=== PATIENT | female | born 1960 | race Caucasian/White ===

== ENCOUNTER → 2020-04-15 09:24 | Outpatient (BNVA) | payer MEDICARE, MEDICAID, SELFPAY | PROVIDERS: PCP Family Medicine; Referring Provider Family Medicine; Visit Provider Nurse Practitioner Family | DX: G47.33 Obstructive sleep apnea (adult) (pediatric) (principal); I10 Essential (primary) hypertension; F32.9 Major depressive disorder, single episode, unspecified | CPT/HCPCS: 99214 ==

== ENCOUNTER 2020-04-16 12:51 | Outpatient (REF) | payer MEDICARE, MEDICAID, SELFPAY ==
[2020-04-16 14:39] LABS: Alanine Aminotransferase 16 U/L (0-31); Anion Gap 14 (12-20); Blood Urea Nitrogen 10 mg/dL (9-16); Carbon Dioxide 29 mmol/L (22-29); Chloride 104 mmol/L (96-108); Estimated Glomerular Filt Rate > 60; Potassium 4.7 mmol/l (3.3-5.1); Sodium 142 mmol/L (135-145)
== END 2020-04-16 12:52 | disposition home or self-care (01) ==
LOC: HO.HMGCLDS 12:51
PROVIDERS: PCP Family Medicine; Visit Provider Family Medicine
DX: I10 Essential (primary) hypertension (principal); E78.00 Pure hypercholesterolemia, unspecified
CPT/HCPCS: 80051; 82550; 82565; 84460; 84520

== ENCOUNTER → 2020-10-02 08:36 | Outpatient (REF) | payer MEDICARE, MEDICAID, SELFPAY ==
--- NOTE | 2020-10-02 08:39 | CA_ITS ---
Transthoracic Echocardiogram Amended Patient (Last, First, Middle): Eufemia Castellano, Gender: Female Date of : 1960 Age: 59 Procedure Date: 10/02/2020 Procedure Type: Transthoracic Echocardiogram Location: OP Height: 165.1 cm Weight: 113.4 kg BSA: 2.17 m2 Heart Rate: bpm BP: 127 / 74 mmHg Pourer Off: YR Referring MD: Heidi Mcnally DIRECTOR CLIENT SERVICES Symptoms: I10 - Essential (primary) hypertension Study Quality: Fair ECG Rhythm: Sinus Conclusions: - The left ventricular systolic function is normal. The visually estimated ejection fraction is between 60-65%. - There is mild calcification of the aortic valve. - There is mild mitral annular calcification. - The pulmonary artery systolic pressure is normal. Findings Left Ventricle Normal left ventricular cavity size. There is normal left ventricular wall thickness. The left ventricular systolic function is normal. The visually estimated ejection fraction is between 60-65%. The calculated ejection fraction is 61% by biplane method. There is no evidence of regional wall motion abnormalities. Diastolic function is normal for age. Right Ventricle Normal right ventricular cavity size and systolic function. Atria Both atria are normal in size. Aortic Valve There is a normal trileaflet aortic valve. There is mild calcification of the aortic valve. There is no aortic valve stenosis. There is trace (trivial) aortic valve regurgitation. Mitral Valve There is mild mitral annular calcification. There is trace mitral valve regurgitation. There is no mitral valve stenosis. Pulmonic Valve The pulmonic valve was not well visualized. Tricuspid Valve Normal tricuspid valve structure. There is trace tricuspid valve regurgitation. The pulmonary artery systolic pressure is normal. Great Vessels The asc aorta and aortic arch are normal in size. Venous The inferior vena cava is normal in size and collapses greater than 50% with inspiration. Pericardium/Pleural There is no evidence of pericardial effusion. Prior Study Comparison No significant change compared to prior study dated: 05/16/2018. Measurements 2D Linear Measurements IVSd: 0.93 0.6-0.9/0.6-1.0 cm LVIDd: 4.89 3.9-5.3/4.2-5.9 cm LVIDd Index: 2.25 2.4-3.2/2.2-3.1 cm/m2 LVIDs: 3.44 2.0-3.6 cm LVPWd: 0.98 0.7-1.1 cm Ao Root: 3.20 2.1-3.5 cm LA Diam: 4.10 2.7-3.8/3.0-4.0 cm LAIDs Index: 1.89 1.5-2.3 cm/m2 LV Mass: 205.26 67-162/88-224 g LV Mass Index: 94.59 43-95/49-115 g/m2 LVOT Diam: 2.00 3.0+(-)1.3 cm 2D Volumes LA Vol: 33.80 2D Systolic Function EF 4C: 62.90 >55% EF 2C: 60.30 >55% EF BiP: 61.30 >55% Mitral Valve MV Pk E: 1.00 MV PK A: 0.85 MV Decel Time: 296.00 E/A: 1.20 E'Lateral: 12.00 E'Medial: 8.12 E/E' Med: 12.30 E/E' Lat: 8.30 PHT: 87.00 MVA PHT: 2.53 Decel [place]: 3.37 Aortic Valve AoV Pk Beau: 1.95 AoV Mn Beau: 1.25 AoV VTI: 0.43 AoV Pk Grad: 15.00 Aov Mn Grad: 7.00 PAUL Cont.VTI: 2.13 LVOT LVOT Pk Beau: 1.31 LVOT Mn Beau: 0.81 LVOT VTI: 0.29 LVOT Pk Grad: 7.00 LVOT Mn Grad: 3.00 LVOT Diam: 2.00 LVOT Area: 3.14 Diastolic Function MV Pk E: 1.00 MV Pk A: 0.85 E/A: 1.20 E'Medial: 8.12 E/E' Med: 12.30 E' Laterial: 12.00 E/E' Lat: 8.30 Tricuspid Valve TR Pk Beau: 2.20 TR Pk Grad: 19.00 RA Press: 3.00 RVSP: 22.00 Great Vessels Aorta Ao Root-2D: 3.20 2.0-3.7 cm Ao Asc: 3.50 2.1-3.4 cm Ao Arch: 3.20 Updated in Other Vendor System with Status of Final James Murillo MD electronically signed on 10/03/2020 11:23:50 AM with status of Final
== END ==
LOC: HO.CARD 08:36
PROVIDERS: PCP Family Medicine; Visit Provider Nurse Practitioner Family
DX: I10 Essential (primary) hypertension (principal); G47.33 Obstructive sleep apnea (adult) (pediatric)
CPT/HCPCS: 93306

== ENCOUNTER 2020-11-07 10:39 | Outpatient (REF) | payer MEDICARE, MEDICAID, SELFPAY ==
--- NOTE | ~2020-11-07 | MM_ITS ---
EXAMINATION: MM SCREENING DIGITAL BREAST TOMOSYNTHESIS, BILATERAL CLINICAL INFORMATION: Screening. Asymptomatic. The lifetime risk of breast cancer based on the Tyrer-Cuzick Model is 9%. COMPARISON: Mammography: 09/06/2019, 05/23/2018, 08/03/2016 TECHNIQUE: Digital breast tomosynthesis is performed in both the craniocaudal and mediolateral oblique views along with computer-aided detection (CAD). Synthesized 2D images are generated from the tomosynthesis. Additional bilateral CC and additional bilateral MLO views are provided. FINDINGS: The breasts are almost entirely fatty (ACR BI-RADS breast composition Category a). There are no significant masses, abnormal calcifications, or other abnormalities. Background stromal markings are stable. There are bilateral low axillary tail nodes again seen on the MLO views. No significant changes from prior exams. MM/MM tomosynthesis screening BI IMPRESSION: No mammographic evidence of malignancy. ASSESSMENT: BI-RADS 2: Benign RECOMMENDATION: Routine annual mammography screening. This patient's information was entered into a reminder system with a target due date for their next mammogram.
== END 2020-11-07 10:40 | disposition home or self-care (01) ==
LOC: HO.MAMMO 10:39
PROVIDERS: PCP Family Medicine; Visit Provider Family Medicine
DX: Z12.31 Encounter for screening mammogram for malignant neoplasm of breast (principal)
CPT/HCPCS: 77063; 77067

== ENCOUNTER 2020-11-20 12:02 | Outpatient (REF) | payer MEDICARE, MEDICAID, SELFPAY ==
[2020-11-20 13:17] LABS: MANUAL DIFF FLAG NO
[2020-11-20 13:21] LABS: Basophils Absolute Auto 0.1 X10*3/uL (0.0-0.2); Basophils Percent Auto 0.6 % (0-2); Eosinophils Absolute Auto 0.4 X10*3/uL (0.0-0.4); Eosinophils Percent Auto 3.4 % (0-4); Hematocrit 38.2 % (37-47); Hemoglobin 12.1 g/dl (12.0-16.0); Imm Gran Abs Auto 0.03 X10*3/uL (0.00-0.03); Imm Gran Pct Auto 0.3 % (0.0-0.4); Lymphocytes Absolute Auto 2.3 X10*3/uL (1.2-4.9); Lymphocytes Percent Auto 19.1 % (20-40); Mean Corpuscular HGB Conc 31.7 g/dl (31.0-35.0); Mean Corpuscular Hemoglobin 27.6 pg (27.0-33.0); Mean Corpuscular Volume 87.2 fL (80-98); Monocytes Percent Auto 8.4 % (2-11); Neutrophils Absolute Auto 8.1 X10*3/uL (2.0-8.3); Neutrophils Percent Auto 68.2 % (45-73); Platelet Count 425 X10*3/uL (160-400); Red Blood Count 4.38 X10*6/uL (4.20-5.50); Red Cell Distribution Width 14.6 % (11.0-16.0); White Blood Count 11.9 X10*3/uL (4.8-10.8)
[2020-11-20 13:37] LABS: Alanine Aminotransferase 22 U/L (0-31); Anion Gap 13 (12-20); Aspartate Amino Transferase 21 U/L (5-31); Blood Urea Nitrogen 9 mg/dL (9-16); Carbon Dioxide 29 mmol/L (22-29); Chloride 104 mmol/L (96-108); Estimated Glomerular Filt Rate > 60; Potassium 4.4 mmol/L (3.3-5.1); Sodium 142 mmol/L (135-145)
== END 2020-11-20 12:03 | disposition home or self-care (01) ==
LOC: HO.LAB 12:02
PROVIDERS: PCP Family Medicine; Visit Provider Family Medicine
DX: D64.9 Anemia, unspecified (principal); I10 Essential (primary) hypertension; E78.00 Pure hypercholesterolemia, unspecified; Z79.899 Other long term (current) drug therapy
CPT/HCPCS: 36415; 80051; 82550; 82565; 84450; 84460; 84520; 85025

== ENCOUNTER → 2020-12-30 11:16 | Outpatient (BNVA) | payer MEDICARE, MEDICAID, SELFPAY | PROVIDERS: PCP Family Medicine; Visit Provider Nurse Practitioner Family | DX: Z13.89 Encounter for screening for other disorder (principal) | CPT/HCPCS: Q3014 ==

== ENCOUNTER → 2021-04-14 10:49 | Outpatient (BNVA) | payer MEDICARE, MEDICAID, SELFPAY | PROVIDERS: PCP Family Medicine; Visit Provider Nurse Practitioner Family | CPT/HCPCS: 99212 ==

== ENCOUNTER 2021-07-06 11:32 | Outpatient (REF) | payer MEDICARE, MEDICAID, SELFPAY ==
[2021-07-06 13:48] LABS: MANUAL DIFF FLAG NO
[2021-07-06 13:54] LABS: Basophils Absolute Auto 0.1 X10*3/uL (0.0-0.2); Basophils Percent Auto 0.8 % (0-2); Eosinophils Absolute Auto 0.4 X10*3/uL (0.0-0.4); Eosinophils Percent Auto 3.3 % (0-4); Hematocrit 38.7 % (37.0-47.0); Hemoglobin 11.8 g/dl (12.0-16.0); Imm Gran Abs Auto 0.04 X10*3/uL (0.00-0.03); Imm Gran Pct Auto 0.4 % (0.0-0.4); Lymphocytes Absolute Auto 2.3 X10*3/uL (1.2-4.9); Lymphocytes Percent Auto 21.4 % (20-40); Mean Corpuscular HGB Conc 30.5 g/dl (31.0-35.0); Mean Corpuscular Hemoglobin 26.6 pg (27.0-33.0); Mean Corpuscular Volume 87.4 fL (80.0-98.0); Mean Platelet Volume 10.2 fL (9.4-12.3); Monocytes Absolute Auto 0.7 X10*3/uL (0.1-1.2); Neutrophils Percent Auto 67.1 % (45-73); Platelet Count 406 X10*3/uL (160-400); Red Blood Count 4.43 X10*6/uL (4.20-5.50); Red Cell Distribution Width 14.7 % (11.0-16.0); White Blood Count 10.5 X10*3/uL (4.8-10.8)
[2021-07-06 14:14] LABS: Alanine Aminotransferase 17 U/L (0-31); Albumin Level 3.6 g/dL (3.5-5.0); Alkaline Phosphatase 127 U/L (39-117); Anion Gap 10 (12-20); Aspartate Amino Transferase 16 U/L (5-31); Bilirubin Total 0.3 mg/dL (0.0-1.0); Blood Urea Nitrogen 10 mg/dL (9-16); Carbon Dioxide 30 mmol/L (22-29); Chloride 106 mmol/L (96-108); Estimated Glomerular Filt Rate > 60; Glucose Random 112 mg/dL (60-115); Potassium 4.2 mmol/L (3.3-5.1); Sodium 142 mmol/L (135-145)
== END 2021-07-06 11:33 | disposition home or self-care (01) ==
LOC: HO.HMGCLDS 11:32
PROVIDERS: PCP Family Medicine; Visit Provider Family Medicine
DX: E78.00 Pure hypercholesterolemia, unspecified (principal); R42 Dizziness and giddiness; R06.02 Shortness of breath; Z79.899 Other long term (current) drug therapy
CPT/HCPCS: 36415; 80053; 85025

== ENCOUNTER → 2021-07-14 11:39 | Outpatient (BNVA) | payer MEDICARE, MEDICAID, SELFPAY | PROVIDERS: PCP Family Medicine; Visit Provider Nurse Practitioner Family | DX: Z13.89 Encounter for screening for other disorder (principal) | CPT/HCPCS: Q3014 ==

== ENCOUNTER 2021-11-09 10:27 | Outpatient (REF) | payer OTHER, MEDICAID, SELFPAY ==
--- NOTE | ~2021-11-09 | MM_ITS ---
EXAMINATION: MM SCREENING DIGITAL BREAST TOMOSYNTHESIS, BILATERAL CLINICAL INFORMATION: Screening. Asymptomatic. The lifetime risk of breast cancer based on the Tyrer-Cuzick Model is 8%. COMPARISON: Mammography: 11/07/2020, 09/06/2019, 05/23/2018 TECHNIQUE: Digital breast tomosynthesis is performed in both the craniocaudal and mediolateral oblique views along with computer-aided detection (CAD). Synthesized 2D images are generated from the tomosynthesis. Additional bilateral CC and right cleavage views are provided. FINDINGS: The breasts are almost entirely fatty (ACR BI-RADS breast composition Category a). Background stromal markings are stable. No developing density or architectural abnormality. Bilateral low axillary tail nodes are again seen as incidental finding. There are no significant masses, abnormal calcifications, or other abnormalities. The skin contours are smooth. MM/MM tomosynthesis screening BI IMPRESSION: No mammographic evidence of malignancy. ASSESSMENT: BI-RADS 2: Benign RECOMMENDATION: Routine annual mammography screening. This patient's information was entered into a reminder system with a target due date for their next mammogram.
== END 2021-11-09 10:28 | disposition home or self-care (01) ==
LOC: HO.MAMMO 10:27
PROVIDERS: Visit Provider Family Medicine
DX: Z12.31 Encounter for screening mammogram for malignant neoplasm of breast (principal)
CPT/HCPCS: 77063; 77067

== ENCOUNTER 2022-01-29 14:36 | Outpatient (REF) | payer OTHER, MEDICAID, SELFPAY ==
[2022-01-29 16:16] LABS: MANUAL DIFF FLAG NO
[2022-01-29 16:19] LABS: Basophils Absolute Auto 0.1 X10*3/uL (0.0-0.2); Basophils Percent Auto 0.8 % (0-2); Eosinophils Absolute Auto 0.4 X10*3/uL (0.0-0.4); Eosinophils Percent Auto 3.6 % (0-4); Hemoglobin 12.9 g/dl (12.0-16.0); Imm Gran Abs Auto 0.05 X10*3/uL (0.00-0.03); Imm Gran Pct Auto 0.4 % (0.0-0.4); Lymphocytes Absolute Auto 2.4 X10*3/uL (1.2-4.9); Lymphocytes Percent Auto 21.3 % (20-40); Mean Corpuscular HGB Conc 31.5 g/dl (31.0-35.0); Mean Corpuscular Hemoglobin 26.4 pg (27.0-33.0); Mean Corpuscular Volume 83.8 fL (80.0-98.0); Mean Platelet Volume 9.9 fL (9.4-12.3); Monocytes Absolute Auto 0.9 X10*3/uL (0.1-1.2); Monocytes Percent Auto 7.6 % (2-11); Neutrophils Absolute Auto 7.4 x10*3/uL (2.0-8.3); Neutrophils Percent Auto 66.3 % (45-73); Platelet Count 465 X10*3/uL (160-400); Red Blood Count 4.89 X10*6/uL (4.20-5.50); Red Cell Distribution Width 14.7 % (11.0-16.0); White Blood Count 11.2 X10*3/uL (4.8-10.8)
[2022-01-29 16:37] LABS: Alanine Aminotransferase 20 U/L (0-31); Alkaline Phosphatase 121 U/L (39-117); Anion Gap 15 (12-20); Aspartate Amino Transferase 21 U/L (5-31); Bilirubin Total 1.2 mg/dL (0.0-1.0); Blood Urea Nitrogen 10 mg/dL (9-16); Calcium 9.3 mg/dL (8.4-10.2); Carbon Dioxide 26 mmol/L (22-29); Chloride 105 mmol/L (96-108); Estimated Glomerular Filt Rate > 60; Glucose Fasting 109 mg/dL (60-99); Sodium 142 mmol/L (135-145); Total Protein 7.6 g/dL (6.5-8.0)
[2022-01-29 16:38] LABS: Estimated Average Glucose 126 mg/dL
== END 2022-01-29 14:37 | disposition home or self-care (01) ==
LOC: HO.HMGCLDS 14:36
PROVIDERS: PCP Family Medicine; Visit Provider Family Medicine
DX: R53.83 Other fatigue (principal); G62.9 Polyneuropathy, unspecified; Z83.3 Family history of diabetes mellitus
CPT/HCPCS: 36415; 80053; 83036; 85025

== ENCOUNTER 2022-06-25 12:40 | Outpatient (REF) | payer OTHER, MEDICAID, SELFPAY ==
[2022-06-25 13:54] LABS: Appearance Urine Clear; Color Urine Yellow; Glucose Urine UA Negative (Negative); Leukocyte Esterase Urine Negative (Negative); Nitrite Urine Negative (Negative); PH 5.5 (5.0-9.0); Specific Gravity - Urine 1.015 (1.005-1.025); Urine Blood Negative (Negative); Urine Ketones Negative (Negative); Urine Protein Negative (Neg-Trace)
[2022-06-25 14:05] LABS: Estimated Average Glucose 114 mg/dL; Hemoglobin A1C 124.3357 umol/L; Hemoglobin A1c % 5.6 %
[2022-06-25 14:22] LABS: Alanine Aminotransferase 17 U/L (0-31); Anion Gap 12 (12-20); Aspartate Amino Transferase 17 U/L (5-31); Blood Urea Nitrogen 11 mg/dL (9-16); Carbon Dioxide 30 mmol/L (22-29); Chloride 105 mmol/L (96-108); Cholesterol 159 mg/dL; Estimated Glomerular Filt Rate > 60; Glucose Fasting 90 mg/dL (60-99); HDL Cholesterol 44 mg/dL; LDL Cholesterol Calculated 95 mg/dl; Potassium 4.4 mmol/L (3.3-5.1); Sodium 143 mmol/L (135-145); Triglycerides 104 mg/dL
== END 2022-06-25 12:41 | disposition home or self-care (01) ==
LOC: HO.LAB 12:40
PROVIDERS: PCP Family Medicine; Visit Provider Family Medicine
DX: E78.00 Pure hypercholesterolemia, unspecified (principal); I10 Essential (primary) hypertension; Z79.899 Other long term (current) drug therapy; R73.9 Hyperglycemia, unspecified; R32 Unspecified urinary incontinence
CPT/HCPCS: 36415; 80051; 80061; 81003; 82550; 82565; 82947; 83036; 84450; 84460; 84520

== ENCOUNTER 2022-10-05 11:57 | Emergency (ER) | payer MEDICARE, MEDICAID, SELFPAY ==
--- NOTE | ~2022-10-05 | XR_ITS ---
EXAMINATION: XR CHEST CLINICAL INFORMATION: Atrial fibrillation. Fatigue. COMPARISON: Previous chest x-ray November 2018 TECHNIQUE: 2 views of the chest were obtained. FINDINGS: The cardiac and mediastinal contours are stable. The lungs are clear. No pleural effusion or pneumothorax. Degenerative changes of the spine. XR/XR chest 2V IMPRESSION: Unremarkable examination.
[2022-10-05 12:22] VITALS: BP 125/79; PULSE 105; RESP 15; TEMP 36.8; O2SAT 97; BMI 39.9
--- NOTE | 2022-10-05 12:30 | ECG_ITS ---
Test Reason : PALPITATIONS Blood Pressure : / mmHG Vent. Rate : 096 BPM Atrial Rate : 000 BPM P-R Int : 000 ms QRS Dur : 086 ms QT Int : 364 ms P-R-T Axes : 000 -04 -13 degrees QTc Int : 459 ms Atrial fibrillation Abnormal ECG No previous ECGs available Referred By: Generic ED Physician Electronically Signed By:SYLVESTER GARZA MD
[2022-10-05 12:46] LABS: MANUAL DIFF FLAG NO
[2022-10-05 12:50] LABS: Basophils Absolute Auto 0.1 X10*3/uL (0.0-0.2); Eosinophils Absolute Auto 0.3 X10*3/uL (0.0-0.4); Eosinophils Percent Auto 3.1 % (0-4); Hematocrit 42.3 % (37.0-47.0); Hemoglobin 13.3 g/dl (12.0-16.0); Imm Gran Abs Auto 0.02 X10*3/uL (0.00-0.03); Imm Gran Pct Auto 0.2 % (0.0-0.4); Lymphocytes Absolute Auto 2.6 X10*3/uL (1.2-4.9); Lymphocytes Percent Auto 27.5 % (20-40); Mean Corpuscular HGB Conc 31.4 g/dl (31.0-35.0); Mean Corpuscular Hemoglobin 26.2 pg (27.0-33.0); Mean Corpuscular Volume 83.3 fL (80.0-98.0); Mean Platelet Volume 9.4 fL (9.4-12.3); Monocytes Absolute Auto 0.7 X10*3/uL (0.1-1.2); Monocytes Percent Auto 7.9 % (2-11); Neutrophils Absolute Auto 5.7 x10*3/uL (2.0-8.3); Neutrophils Percent Auto 60.3 % (45-73); Platelet Count 420 X10*3/uL (160-400); Red Blood Count 5.08 X10*6/uL (4.20-5.50); Red Cell Distribution Width 15.1 % (11.0-16.0); White Blood Count 9.4 X10*3/uL (4.8-10.8)
[2022-10-05 13:12] LABS: Anion Gap 15 (12-20); Blood Urea Nitrogen 9 mg/dL (9-16); Carbon Dioxide 24 mmol/L (22-29); Chloride 109 mmol/L (96-108); Creatinine Clr Calc Pharmacy 99.3; Estimated Glomerular Filt Rate > 60; Glucose Random 121 mg/dL (60-115); Potassium 4.5 mmol/L (3.3-5.1); Sodium 143 mmol/L (135-145)
[2022-10-05 13:29] LABS: Troponin-I High Sensitivity < 2.7 ng/L (<3.5-17.0)
--- NOTE | 2022-10-05 13:50 | ED_ITS ---
HPI - General Adult General Chief complaint: Arrhythmia/Palpitations Stated complaint: Abd pain/Diarrhea/Nausea Time Seen by Provider: 10/05/22 13:49 Source: patient Mode of arrival: ambulatory Limitations: no limitations History of Present Illness HPI narrative: Patient is a 61 year old assigned female at with a history of HTN presenting to the emergency department today with nausea, vomiting, and weakness. Patient states that she had a stomach bug 8 days ago and ever since has felt weak. Patient states that she was seen by her PCP and was told there that she is now in atrial fibrillation which she has never been in before. Patient denies any dizziness, lightheadedness, abdominal pain, chills, blurry v ision, double vision, loss of vision, chest pain, difficulty breathing, shortness of breath, back pain, night sweats, pain with urination, increased urinary frequency, increased urinary urgency, blood in her urine or stool, syncope or a near syncopal episode, recent trauma or falls, bowel incontinence, bladder incontinence, bowel retention, bladder retention, or any other complaints at this time. Onset (ago): day(s) (8) Severity: mild Severity scale (1-10): 2 Relieving factors: none Exacerbating factors: none Associated symptoms: nausea/vomiting Treatments prior to arrival: none Related Data Home Medications Medication Instructions Recorded Confirmed atorvastatin 20 mg tablet 20 mg PO DAILY 04/15/20 04/14/21 bupropion HCl 300 mg 24 hr tablet, mg PO 04/15/20 04/14/21 extended release duloxetine 30 mg capsule,delayed mg PO 04/15/20 04/14/21 release fluticasone propionate 50 intranasal 04/15/20 04/14/21 mcg/actuation nasal spray,suspension gabapentin 300 mg capsule mg PO 04/15/20 04/14/21 metoprolol succinate 50 mg 50 mg PO DAILY 04/15/20 04/14/21 tablet,extended release 24 hr omeprazole 20 mg capsule,delayed 20 mg PO DAILY 04/15/20 04/14/21 release magnesium oxide 400 mg PO DAILY 07/14/21 multivitamin 1 tab PO DAILY 07/14/21 Previous Rx's Medication Instructions Recorded rivaroxaban 20 mg tablet (Xarelto) 20 mg PO QPM #30 tabs 10/05/22 Allergies Allergy/AdvReac Type Severity Reaction Status Date / Time adhesive tape Allergy Mild Rash Verified 07/14/21 11:45 house dust Allergy Mild runny Verified 07/14/21 11:45 nose, watery eyes Review of Systems Constitutional: Constitutional: Reports no additional constitutional complaints, Denies chills, Denies fever(s), Denies night sweats and Reports weakness Eyes: Eyes: Reports no additional eye complaints, Denies blurry vision, Denies change in vision, Denies diplopia, Denies eye discharge, Denies loss of vision and Denies eye pain ENT: Denies dizziness Cardiovascular: Cardiovascular: Reports no additional cardiovascular complain ts, Denies chest pain, Denies lightheadedness, Denies Loss of Consciousness and Denies dyspnea Respiratory: Respiratory: Reports no additional respiratory complaints and Denies dyspnea Gastrointestinal: Gastrointestinal: Reports no additional gastrointestinal complaints, Denies abdominal pain, Denies melena, Denies hematochezia, Denies change in bowel habits, Denies change in stool character, Reports nausea and Reports vomiting Genitourinary: Genitourinary: Denies hematuria, Denies urinary frequency, Denies dysuria, Denies urinary incontinence, Denies urinary hesitancy and Denies urinary urgency Musculoskeletal: Musculoskeletal: Reports no additional musculoskeletal complaints, Denies numbness and Denies tingling Neurologic: Denies dizziness, Denies loss of vision, Denies numbness, Denies tingling and Reports weakness Psychiatric: Psychiatric: Reports no additional psychiatric complaints Endocrine: Endocrine: Reports no additional endocrine complaints Hematologic/Lymphatic: Hematologic/Lymphatic: Reports no additional hematologic/lymphatic complaints Allergic/Immunologic: Allergic/Immunologic: Reports no additional aller gic/immunologic complaints [facility] Past Medical History Attestation statement: The following information was validated with the patient. Source: old records reviewed and nursing notes reviewed Surgical History History of carpal tunnel surgery Family History Family History Mother CAD (coronary artery disease) Father CAD (coronary artery disease) Social History Social History Alcohol intake: current Alcohol intake frequency: holidays/special occasions only Patient Tobacco Use Status: Never used Tobacco Smoked in Last 30 Days: No Use of substances other than those prescribed or required for medical reasons: Yes Substance Use Type: Marijuana Advance Directives: Yes Advance Directives Information Provided: Yes Advance Directives on File: No Physical Exam ED Vital Signs: Vital Signs - 24 hr 10/05/22 12:22 10/05/22 14:18 10/05/22 14:49 Temperature 98.3 F Pulse Rate 105 H 84 97 Respiratory Rate 15 20 18 Blood Pressure 125/79 121/89 117/84 Pulse Oximetry 97 98 99 Oxygen Delivery Method Room Air Room Air Room Air 10/05/22 16:07 Temperature 98.2 F Pulse Rate 94 Respiratory Rate 25 H Blood Pressure 132/70 Pulse Oximetry 97 Oxygen Delivery Method Room Air BMI result Body Mass Index 39.9 Const General: cooperative, no acute distress, alert and awake Nutritional Appearance: well nourished Orientation/consciousness: patient oriented x3 Limitations: no limitations HENMT Head: Yes normal to inspection and Yes atraumatic Ears: hearing grossly normal bilaterally and external ears normal General nose exam: Normal external nose present, no nasal discharge noted and no epistaxis Face and sinus: Yes normal facial exam, No abrasion and No laceration Mouth: Normal oral and palatal mucosa present, no drooling and no muffled voice Eyes General: appearance normal, both eyes and all related structures Periorbital: periorbital findings normal Eyelids: Yes eyelids normal Conjunctivae: conjunctivae normal Pupils: Equal, round and reactive pupils present EOM: EOMs intact bilaterally Neck Neck: Yes normal visual inspection, Yes full ROM and Yes no lymphadenopathy Chest Chest palpation & inspection: normal inspection of the chest Resp Effort & Inspection: normal respiratory effort and able to speak in complete sentences Auscultation: clear to auscultation bilaterally Cardio Rate: tachycardic Rhythm: abnormal rhythm irregularly irregular GI Inspection: Yes normal to inspection Palpation (GI): Soft to palpation, not firm, nontender and no guarding Neuro General: patient oriented x3 and moves all extremities Cranial nerves: Yes Equal, round and reactive pupils present Cognition (Neuro): normal cognition Motor exam (neuro): 5/5 motor strength present throughout Sensory Exam: Normal double simultaneous stimulation for sensation Coordination: [id number] test normal Extrem General: Yes normal to inspection, Yes full ROM and Yes capillary refill normal Psych Appearance: grossly normal Mental Status: mental status grossly normal Affect: normal affect Attitude: cooperative Thought process: Normal thought process present Thought content: Normal thought content present Insight: Good insight present (Psych) Medications Administered Discontinued Medications Generic Name Dose Route Start Last Admin Trade Name Tiffani PRN Reason Stop Dose Admin Sodium Chloride 1,000 mls @ 999 mls/hr 10/05/22 14:00 10/05/22 15:53 Ns IV 10/05/22 15:00 Infused .Q1H1M LUDIWG Infusion Metoprolol Tartrate 10 mg 10/05/22 13:59 10/05/22 14:10 Metoprolol Tartrate 5 Mg/5 Ml Vial IVPUSH 10/05/22 14:00 10 mg ONCE ONE Administration Medical Decision Making Medical Decision Making [facility] Narrative: Patient is a 61 year old assigned female at with a history of HTN presenting to the emergency department today with general weakness. Patient's physical exam showed slightly tachycardia with an irregularly irregular rhythm. Patient's blood work was unremarkable. Patient's EKG showed atrial fibrillation. Patient's chest x-ray showed no acute process. I spoke to cardiology who recommended the patient be started on Xarelto and discharged with follow up in the cardiology clinic. Patient was given normal saline and 10mg of lopressor which she stated helped her symptoms significantly. I explained my physical exam findings as well as all test results to the patient. I answered all questions asked by the patient. I stressed the importance of the patient taking her medication as prescribed. I stressed the importance of the patient following up with her primary care provider. I stressed the importance of the patient returning to the emergency department immediately if her symptoms were to worsen or if she were to develop any dizziness, shortness of breath, difficulty breathing, chest pain, blurry vision, loss of vision, nausea, vomiting, abdominal pain, fever, chills, back pain, or any other complaints. Patient verbalized agreement and understanding with this treatment plan and discharge. Differential Diagnosis Differential Diagnoses: The differential diagnosis associated with the presentation includes atrial fibrillation, viral illness Consult Healthcare Provider Management of the patient was discussed with: [employer] (spoke to the silk blocker as noted in the MDM portion of this chart) Lab Data [facility] Lab Attestation statement: I reviewed the patient's lab results. 10/05/22 12:41 10/05/22 12:41 Labs: Lab Results 10/05/22 10/05/22 10/05/22 Range/Units 12:41 12:41 12:41 WBC 9.4 (4.8-10.8) X10*3/uL RBC 5.08 (4.20-5.50) X10*6/uL Hgb 13.3 (12.0-16.0) g/dl Hct 42.3 (37.0-47.0) % MCV 83.3 (80.0-98.0) fL MCH 26.2 L (27.0-33.0) pg MCHC 31.4 (31.0-35.0) g/dl RDW 15.1 (11.0-16.0) % Plt Count 420 H (160-400) X10*3/uL MPV 9.4 (9.4-12.3) fL Immature Gran % (Auto) 0.2 (0.0-0.4) % Neut % (Auto) 60.3 (45-73) % Lymph % (Auto) 27.5 (20-40) % [place] % (Auto) 7.9 (2-11) % Eos % (Auto) 3.1 (0-4) % Baso % (Auto) 1.0 (0-2) % Lymph # (Auto) 2.6 (1.2-4.9) X10*3/uL [place] # (Auto) 0.7 (0.1-1.2) X10*3/uL Eos # (Auto) 0.3 (0.0-0.4) X10*3/uL Baso # (Auto) 0.1 (0.0-0.2) X10*3/uL Abs Immat Gran (auto) 0.02 (0.00-0.03) X10*3/uL Absolute Neuts (auto) 5.7 (2.0-8.3) x10*3/uL Absolute Nucleated RBC 0.000 (0.0-0.012) X10*3/uL Nucleated RBC % (auto) 0.0 (0.0-0.2) /100WBC PT (10.0-13.1) SEC INR (0.9-1.1) APTT (26.0-36.4) SEC Sodium 143 (135-145) mmol/L Potassium 4.5 (3.3-5.1) mmol/L Chloride 109 H (96-108) mmol/L Carbon Dioxide 24 (22-29) mmol/L Anion Gap 15 (12-20) BUN 9 (9-16) mg/dL Creatinine 0.73 (0.5-1.4) mg/dL Estim Creat Clear Calc 99.3 Estimated GFR > 60 Random Glucose 121 H (60-115) mg/dL Calcium 9.0 (8.4-10.2) mg/dL Troponin I High Sens < 2.7 (<3.5-17.0) ng/L 10/05/22 Range/Units 14:53 WBC (4.8-10.8) X10*3/uL RBC (4.20-5.50) X10*6/uL Hgb (12.0-16.0) g/dl Hct (37.0-47.0) % MCV (80.0-98.0) fL MCH (27.0-33.0) pg MCHC (31.0-35.0) g/dl RDW (11.0-16.0) % Plt Count (160-400) X10*3/uL MPV (9.4-12.3) fL Immature Gran % (Auto) (0.0-0.4) % Neut % (Auto) (45-73) % Lymph % (Auto) (20-40) % [place] % (Auto) (2-11) % Eos % (Auto) (0-4) % Baso % (Auto) (0-2) % Lymph # (Auto) (1.2-4.9) X10*3/uL [place] # (Auto) (0.1-1.2) X10*3/uL Eos # (Auto) (0.0-0.4) X10*3/uL Baso # (Auto) (0.0-0.2) X10*3/uL Abs Immat Gran (auto) (0.00-0.03) X10*3/uL Absolute Neuts (auto) (2.0-8.3) x10*3/uL Absolute Nucleated RBC (0.0-0.012) X10*3/uL Nucleated RBC % (auto) (0.0-0.2) /100WBC PT 12.7 (10.0-13.1) SEC INR 1.1 (0.9-1.1) APTT 32.1 (26.0-36.4) SEC Sodium (135-145) mmol/L Potassium (3.3-5.1) mmol/L Chloride (96-108) mmol/L Carbon Dioxide (22-29) mmol/L Anion Gap (12-20) BUN (9-16) mg/dL Creatinine (0.5-1.4) mg/dL Estim Creat Clear Calc Estimated GFR Random Glucose (60-115) mg/dL Calcium (8.4-10.2) mg/dL Troponin I High Sens (<3.5-17.0) ng/L Independent Interpretation I performed an independent interpretation of an: EKG Interpretation: Vent. Rate: 096 BPM ? ? Atrial Rate: 000 BPM P-R Int: 000 ms? QRS Dur: 086 ms QT Int: 364 ms ? ? ? P-R-T Axes: 000 -04 -13 degrees QTc Int: 459 ms ? Atrial fibrillation Abnormal ECG No previous ECGs available ? Electronically Signed By:YONY GARZA MD Dictated By: Yony Garza MD Signed By: Electronically signed by Yony Garza MD 10/05/22 1539 Radiology Impression Radiologist Impression: My interpretation is in agreement with the radiologist's impression of this imaging study. EXAMINATION: XR CHEST CLINICAL INFORMATION: Atrial fibrillation. Fatigue. COMPARISON: Previous chest x-ray November 2018 TECHNIQUE: 2 views of the chest were obtained. FINDINGS: The cardiac and mediastinal contours are stable. The lungs are clear. No pleural effusion or pneumothorax. Degenerative changes of the spine. XR/XR chest 2V IMPRESSION: Unremarkable examination. Dictated By: Leta Bowling MD Signed By: Electronically signed by Leta Bowling MD 10/05/22 1524 Critical Care Time Critical Care Time Critical Care Time: Yes Total Critical Care Time: 30 Attestation: I spent 30 minutes of Critical Care Time with this patient. This does not includ e time spent on separately reported billable procedures. Discharge Plan Discharge Clinical Impression: Atrial fibrillation Patient Disposition: Home, Self-Care Instructions: A-fib (Atrial Fibrillation) (DC), Blood Thinners (ED) Additional Instructions: Follow up with your primary care provider and a silk blocker. Return to the emergency department immediately if your symptoms worsen or if you develop any dizziness, shortness of breath, difficulty breathing, chest pain, blurry vision, loss of vision, nausea, vomiting, abdominal pain, fever, chills, back pain, or any other complaints. Prescriptions: New Xarelto 20 mg tablet 20 mg PO QPM Qty: 30 0RF Rx Instructions: must administer with evening meal No Action atorvastatin 20 mg tablet 20 mg PO DAILY fluticasone propionate 50 mcg/actuation spray,suspension intranasal gabapentin 300 mg capsule PO omeprazole 20 mg capsule,delayed release(DR/EC) 20 mg PO DAILY duloxetine 30 mg capsule,delayed release(DR/EC) PO bupropion HCl 300 mg tablet extended release 24 hr PO metoprolol succinate 50 mg tablet extended release 24 hr 50 mg PO DAILY magnesium oxide 400 mg magnesium capsule 400 mg PO DAILY multivitamin Tablet 1 tab PO DAILY Referrals: [facility] [Provider Group] (Call to establish and follow up with a silk blocker. ) Vance Razo MD [Primary Care Provider] - Interventions: ED Discharge Assessment Last Done: 10/05/22 16:07 Discharge Date/Time: 10/05/22 16:08 Print Language: Swedish
[2022-10-05] MEDS: 0.9 % Sodium Chloride 1,000 ML 999 ML IV (14:10)
[2022-10-05] MEDS: Metoprolol Tartrate 5 MG/5 ML VIAL 10 MG IVPUSH (14:10)
[2022-10-05 14:18] VITALS: BP 121/89; PULSE 84; RESP 20; O2SAT 98
[2022-10-05 14:49] VITALS: BP 117/84; PULSE 97; RESP 18; O2SAT 99
[2022-10-05 15:25] LABS: INTERNATIONAL NORM RATIO 1.1 (0.9-1.1); Prothrombin Time 12.7 SEC (10.0-13.1)
[2022-10-05 15:27] LABS: Partial Thromboplastin Time 32.1 SEC (26.0-36.4)
[2022-10-05 16:07] VITALS: BP 132/70; PULSE 94; RESP 25; TEMP 36.8; O2SAT 97
== END 2022-10-05 16:08 | disposition home or self-care (01) ==
PROVIDERS: Physician Assistant Medical; Emergency Provider Emergency Medicine; PCP Family Medicine
DX: I48.91 Unspecified atrial fibrillation (principal); R00.2 Palpitations; I49.9 Cardiac arrhythmia, unspecified; I10 Essential (primary) hypertension; R11.2 Nausea with vomiting, unspecified; Z79.899 Other long term (current) drug therapy
CPT/HCPCS: 36415; 71046; 80048; 84484; 85025; 85610; 85730; 93005; 96361; 96374; 99284; 99285

== ENCOUNTER → 2022-10-12 13:40 | Outpatient (REF) | payer MEDICARE, MEDICAID, SELFPAY ==
--- NOTE | 2022-10-12 13:44 | HM_ITS ---
Conclusion: 1. Patient was monitored for total period of 3 days 2. Baseline was atrial fibrillation with average heart rate of 104 beats per minute within adequate rate control 3. Occasional PVCs noted 4. No pauses noted 5. Patient reported symptoms mostly correlated with underlying atrial fibrillation MTDD
== END ==
LOC: HO.CARD 13:40
PROVIDERS: PCP Family Medicine; Visit Provider Internal Medicine Cardiovascular Disease
DX: R00.2 Palpitations (principal)
CPT/HCPCS: 93242

== ENCOUNTER → 2022-11-01 12:39 | Outpatient (BNVA) | payer MEDICARE, MEDICAID, SELFPAY | PROVIDERS: PCP Family Medicine; Referring Provider Family Medicine; Visit Provider Internal Medicine Cardiovascular Disease | DX: I48.19 Other persistent atrial fibrillation (principal); Z79.01 Long term (current) use of anticoagulants | CPT/HCPCS: 93005; 99202 ==

== ENCOUNTER → 2022-11-02 12:43 | Outpatient (REF) | payer MEDICARE, MEDICAID, SELFPAY ==
--- NOTE | 2022-11-02 12:45 | CA_ITS ---
Transthoracic Echocardiogram Patient (Last, First, Middle): Eufemia Castellano, Gender: Female Date of : 1960 Age: 61 Procedure Date: 11/02/2022 Procedure Type: Transthoracic Echocardiogram Location: OP Height: 165.1 cm Weight: 113.4 kg BSA: 2.17 m2 Heart Rate: bpm BP: 114 / 78 mmHg Rib Stiffener And Heel Dipper: TO Referring MD: Yony Irby MD Symptoms: I10 - Essential (primary) hypertension Study Quality: Fair ECG Rhythm: Atrial Fibrillation Conclusions: - The left ventricular systolic function is normal. The visually estimated ejection fraction is between 55-60%. - The left atrium is severely dilated. - There is mild calcification of the aortic valve. - There is moderate mitral annular calcification. - In some images/accompanying EKG, atrial fibrillation rates >100/min. Correlate clinically. Findings Left Ventricle Normal left ventricular cavity size. The left ventricular systolic function is normal. The visually estimated ejection fraction is between 55-60%. There is no evidence of regional wall motion abnormalities. Diastolic function is indeterminate on the basis of available data. There is mild septal asymmetric hypertrophy. Right Ventricle Normal right ventricular cavity size and systolic function. Atria The left atrium is severely dilated. The right atrium is normal in size. Aortic Valve There is a normal trileaflet aortic valve. There is mild calcification of the aortic valve. There is no aortic valve stenosis. There is no aortic valve regurgitation. Mitral Valve There is moderate mitral annular calcification. There is mild mitral valve regurgitation. There is no mitral valve stenosis. Pulmonic Valve The pulmonic valve is likely normal. Tricuspid Valve There is mild tricuspid valve regurgitation. There is no evidence of pulmonary hypertension. Great Vessels The asc aorta is normal in size. Venous The inferior vena cava is normal in size and collapses greater than 50% with inspiration. Pericardium/Pleural There is no evidence of pericardial effusion. Prior Study Comparison Changes noted compared to prior study dated: 10/02/2020. Increase in left atrial size. Measurements 2D Linear Measurements IVSd: 1.17 0.6-0.9/0.6-1.0 cm LVIDd: 4.95 3.9-5.3/4.2-5.9 cm LVIDd Index: 2.28 2.4-3.2/2.2-3.1 cm/m2 LVIDs: 3.13 2.0-3.6 cm LVPWd: 0.81 0.7-1.1 cm LA Diam: 4.50 2.7-3.8/3.0-4.0 cm LAIDs Index: 2.07 1.5-2.3 cm/m2 LV Mass: 219.84 67-162/88-224 g LV Mass Index: 101.31 43-95/49-115 g/m2 LVOT Diam: 2.10 3.0+(-)1.3 cm 2D Systolic Function EF 4C: 57.00 >55% EF 2C: 63.30 >55% EF BiP: 59.80 >55% Mitral Valve MV Pk E: 1.02 MV Decel Time: 214.00 E'Lateral: 10.60 E'Medial: 9.36 E/E' Med: 10.90 E/E' Lat: 9.60 PHT: 63.00 MVA PHT: 3.49 Decel Calloway: 4.76 Aortic Valve AoV Pk Beau: 1.56 AoV Pk Grad: 10.00 LVOT LVOT Pk Beau: 0.89 LVOT Mn Beau: 0.62 LVOT VTI: 0.17 LVOT Pk Grad: 3.00 LVOT Mn Grad: 2.00 LVOT Diam: 2.10 LVOT Area: 3.46 Diastolic Function MV Pk E: 1.02 E'Medial: 9.36 E/E' Med: 10.90 E' Laterial: 10.60 E/E' Lat: 9.60 Right Ventricle TAPSE (mm): 19.70 TVS' Beau: 11.50 Tricuspid Valve TR Pk Beau: 2.43 TR Pk Grad: 24.00 RA Press: 3.00 RVSP: 27.00 Great Vessels Aorta Sinus of Valsalva: 2.88 2.0-3.[address] [place]: 2.27 1.7-3.4 cm Ao Asc: 3.40 2.1-3.4 cm Updated in Other Vendor System with Status of Final James Murillo MD electronically signed on 11/03/2022 12:11:21 PM with status of Final
== END ==
LOC: HO.CARD 12:43
PROVIDERS: PCP Family Medicine; Visit Provider Internal Medicine Cardiovascular Disease
DX: I10 Essential (primary) hypertension (principal); G47.33 Obstructive sleep apnea (adult) (pediatric)
CPT/HCPCS: 93306

== ENCOUNTER 2022-11-04 13:33 | Outpatient (REF) | payer MEDICARE, MEDICAID, SELFPAY ==
--- NOTE | ~2022-11-04 | XR_ITS ---
EXAMINATION: XR CHEST CLINICAL INFORMATION: Persistent atrial fibrillation COMPARISON: None available. TECHNIQUE: 2 views of the chest were obtained. FINDINGS: No significant abnormality is noted involving the heart, lungs, mediastinum, bony thorax or soft tissues. XR/XR chest 2V IMPRESSION: Unremarkable chest examination.
[2022-11-04 15:39] LABS: Alanine Aminotransferase 11 U/L (0-31); Albumin Level 3.7 g/dL (3.5-5.0); Alkaline Phosphatase 144 U/L (39-117); Aspartate Amino Transferase 13 U/L (5-31); Bilirubin Direct 0.3 mg/dL (0.0-0.5); Bilirubin Total 1.2 mg/dL (0.0-1.0); Total Protein 6.9 g/dL (6.5-8.0)
[2022-11-04 15:54] LABS: TSH reflex Free T4 1.24 uIU/mL (0.32-4.0)
== END 2022-11-04 13:34 | disposition home or self-care (01) ==
LOC: HO.LAB 13:33
PROVIDERS: PCP Family Medicine; Visit Provider Internal Medicine Cardiovascular Disease
DX: Z01.811 Encounter for preprocedural respiratory examination (principal); I48.19 Other persistent atrial fibrillation; G47.33 Obstructive sleep apnea (adult) (pediatric)
CPT/HCPCS: 36415; 71046; 80076; 84443

== ENCOUNTER 2022-11-17 11:01 | Day surgery (SDC) | payer MEDICARE, MEDICAID, SELFPAY ==
[2022-11-15 10:08] VITALS: BMI 41.4
--- NOTE | 2022-11-15 14:40 | HO.ANESPROP2 ---
Documented by User: Zulma Savage NP 11/15/22 14:42 HPI - Anesthesia Eval Consult details Narrative: 61yo F for Cardioversion Xarelto for afib PMFSH Active Problems Active Problems: All Active Problems (Updated 11/15/22 @ 10:04 by Edna Swartz RN) Severe obstructive sleep apnea (Acute) Hypertension (Acute) Depression (Acute) Treatment-emergent central sleep apnea (Acute) Persistent atrial fibrillation (Acute) Past Medical History Medical History Atrial fibrillation Depression Elevated cholesterol GERD (gastroesophageal reflux disease) HTN (hypertension) Palpitation Sleep apnea Family History Family History Mother CAD (coronary artery disease) Father CAD (coronary artery disease) Surgical History Surgical History H/O colonoscopy History of carpal tunnel surgery Social History Social History Alcohol intake: current Alcohol intake frequency: holidays/special occasions only Patient Tobacco Use Status: Former Tobacco user Quit Date: 2005 Use of substances other than those prescribed or required for medical reasons: Yes Substance Use Type: Marijuana Substance Use Frequency: Occasionally Are you DNR?: No Advance Directives: No Advance Directives Information Provided: Yes Meds Allergies Allergy/AdvReac Type Severity Reaction Status Date / Time adhesive tape Allergy Mild Rash Verified 07/14/21 11:45 house dust Allergy Mild runny Verified 07/14/21 11:45 nose, watery eyes Home Medications Medication Instructions Recorded Confirmed Last Taken Type atorvastatin 20 mg tablet 20 mg PO DAILY 04/15/20 11/15/22 Unknown History fluticasone propionate 50 1 spray intranasal DAILY 04/15/20 11/15/22 Unknown History mcg/actuation nasal spray,suspension metoprolol succinate 50 mg 50 mg PO DAILY 04/15/20 11/15/22 Unknown History tablet,extended release 24 hr omeprazole 20 mg capsule,delayed 20 mg PO DAILY 04/15/20 11/15/22 Unknown History release magnesium oxide 400 mg PO DAILY 07/14/21 11/15/22 Unknown History multivitamin 1 tab PO DAILY 07/14/21 11/15/22 Unknown History bupropion HCl 300 mg 24 hr tablet, 300 mg PO QAM 11/01/22 11/15/22 Unknown History extended release gabapentin 300 mg capsule 900 mg PO BEDTIME 11/01/22 11/15/22 Unknown History venlafaxine 75 mg capsule,extended 75 mg PO DAILY 11/01/22 11/15/22 Unknown History release 24 hr venlafaxine 37.5 mg 37.5 mg PO DAILY 11/15/22 11/15/22 Unknown History capsule,extended release 24 hr Exam Exam Date and Time: November 15, 2022 1440 Height,Weight and Vital Signs: Height 5 ft 5 in Weight 112.945 kg Pertinent Lab Results Pertinent Lab Results: Laboratory Tests 10/05/22 10/05/22 12:41 12:41 WBC 9.4 Hgb 13.3 Hct 42.3 Plt Count 420 H Sodium 143 Potassium 4.5 Chloride 109 H Carbon Dioxide 24 BUN 9 Creatinine 0.73 Narrative Narrative: ECHO 10/2022 Conclusions: - The left ventricular systolic function is normal.? The visually estimated ejection fraction is between 55-60%. ? - The left atrium is severely dilated. ? - There is mild calcification of the aortic valve. ? - There is moderate mitral annular calcification.? - In some images/accompanying EKG, atrial fibrillation rates ? ? >100/min. Correlate clinically.? Assessment and Plan Assessment Anesthesia Assessment: Chart Reviewed Documented by User: Shaw Pal MD 11/17/22 12:17 [facility] Past Medical History Medical History Atrial fibrillation Depression Elevated cholesterol GERD (gastroesophageal reflux disease) HTN (hypertension) Palpitation Sleep apnea Family History Family History Mother CAD (coronary artery disease) Father CAD (coronary artery disease) Family history of problems with anesthesia: No Surgical History Surgical History H/O colonoscopy History of carpal tunnel surgery History of Problems with Anesthesia: No Social History Social History Alcohol intake: current Alcohol intake frequency: holidays/special occasions only Patient Tobacco Use Status: Former Tobacco user Quit Date: 2005 Use of substances other than those prescribed or required for medical reasons: Yes Substance Use Type: Marijuana Substance Use Frequency: Occasionally Are you DNR?: No Advance Directives: No Advance Directives Information Provided: Yes Meds Allergies Allergy/AdvReac Type Severity Reaction Status Date / Time adhesive tape Allergy Mild Rash Verified 07/14/21 11:45 house dust Allergy Mild runny Verified 07/14/21 11:45 nose, watery eyes Home Medications Medication Instructions Recorded Confirmed Last Taken Type atorvastatin 20 mg tablet 20 mg PO DAILY 04/15/20 11/15/22 Unknown History fluticasone propionate 50 1 spray intranasal DAILY 04/15/20 11/15/22 Unknown History mcg/actuation nasal spray,suspension metoprolol succinate 50 mg 50 mg PO DAILY 04/15/20 11/15/22 Unknown History tablet,extended release 24 hr omeprazole 20 mg capsule,delayed 20 mg PO DAILY 04/15/20 11/15/22 Unknown History release magnesium oxide 400 mg PO DAILY 07/14/21 11/15/22 Unknown History multivitamin 1 tab PO DAILY 07/14/21 11/15/22 Unknown History bupropion HCl 300 mg 24 hr tablet, 300 mg PO QAM 11/01/22 11/15/22 Unknown History extended release gabapentin 300 mg capsule 900 mg PO BEDTIME 11/01/22 11/15/22 Unknown History venlafaxine 75 mg capsule,extended 75 mg PO DAILY 11/01/22 11/15/22 Unknown History release 24 hr venlafaxine 37.5 mg 37.5 mg PO DAILY 11/15/22 11/15/22 Unknown History capsule,extended release 24 hr Exam Airway Mallampati Class: II TM Dist: >3cm Neck ROM: Full Denture: Upper and Lower Loose/Missing/Broken Teeth: Yes Heart: irreg irreg s1s2 Lungs: cta b/l Assessment and Plan Assessment Anesthesia Assessment: Anesthesia Plan Discussed Final Anesthetic Review Family History of Problems with Anesthesia: No History of Problems with Anesthesia: No NPO: Yes ASA Class: III Final Preanesthetic Review: No Changes in Pt Med Stat, Meds/Allgs Chart Reviewed, Consent Obtained/Reviewed and Anes Risks/Benef Reviewed Patient Risk: Intermediate Procedure Risk: Intermediate Assessment/Block/Sedation in SS: Assess/Block/Sedation-SS Anesthetic Plan Anesthetic Plan: GA and Agree w/ Assess. and Plan Disposition: Standard PACU
--- NOTE | 2022-11-17 10:50 | MHC.SHP ---
Pre-Procedural Eval Section A Date of Service: 11/17/22 The patient is an INPATIENT: No Changes since office visit: No Cold of Flu in the past 2 weeks, No New Medical Problems, No Changes in Medication and No Patient answered all questions The History & Physical has been completed within 30 days and I have reviewed it.: Yes Section B Chief Complaint: Other persistent atrial fibrillation Allergies: Allergies Allergy/AdvReac Type Severity Reaction Status Date / Time adhesive tape Allergy Mild Rash Verified 07/14/21 11:45 house dust Allergy Mild runny Verified 07/14/21 11:45 nose, watery eyes Plan I have reviewed the history and physical and performed a pertinent physical examination on my patient. No changes have occurred unless specified. Time Spent With Patient Time: Total time managing care of this patient today ____ minutes.
[2022-11-17 11:24] VITALS: BP 144/88; PULSE 77; RESP 18; TEMP 36.3; O2SAT 97
[2022-11-17] MEDS: Lactated Ringers 1,000 ML 50 ML IVCONT (11:27)
--- NOTE | 2022-11-17 13:13 | HO.CARDIVERS ---
Cardioversion Procedure Note Cardioversion Date of Procedure: 11/17/2022 Ordering Provider: Myself Performing Provider: Myself Indication for Procedure: Persistent atrial fibrillation with symptoms Pre-Op Diagnosis: Same Post-Op Diagnosis: Persistent atrial fibrillation Performed with Transesophageal Echo: No History: See my office note Consent: Verbal and Written consent was obtained from the patient before starting the procedure and confirming oral anticoagulation use. The patient was made aware of the risk of synchronized cardioversion including risk, benefits, alternatives. Procedure: After consent obtained, cardioversion pads were attached in anteroposterior configuration and the patient was sedated by the anesthesia team. Once adequate sedation achieved, patient was delivered 200 joules of biphasic synchronized energy in anteroposterior configuration. Patient converted briefly to sinus rhythm after each attempt but then reverted back to atrial fibrillation Complications: None Impression: Failed to cardiovert after amiodarone loading Recommendations: 1. Continue amiodarone and Xarelto 2. Will refer to electrophysiology for consideration for ablation 3. Continue CPAP therapy
[2022-11-17 13:18] VITALS: BP 105/67; PULSE 86; RESP 16; O2SAT 96
[2022-11-17 13:22] VITALS: BP 105/67; PULSE 79; RESP 16; O2SAT 99
[2022-11-17 13:37] VITALS: BP 114/68; PULSE 80; RESP 16; TEMP 36.1; O2SAT 99
== END 2022-11-17 14:08 | disposition home or self-care (01) ==
PROVIDERS: PCP Family Medicine; Visit Provider Internal Medicine Cardiovascular Disease
PROC: 5A2204Z Restoration of Cardiac Rhythm, Single (ICD-10-PCS; principal; 2022-11-17 12:30)
DX: I48.19 Other persistent atrial fibrillation (principal); I10 Essential (primary) hypertension; G47.33 Obstructive sleep apnea (adult) (pediatric); E66.9 Obesity, unspecified; Z68.41 Body mass index [BMI] 40.0-44.9, adult; Z79.01 Long term (current) use of anticoagulants; Z79.899 Other long term (current) drug therapy; Z99.89 Dependence on other enabling machines and devices; L23.1 Allergic contact dermatitis due to adhesives; F12.90 Cannabis use, unspecified, uncomplicated
CPT/HCPCS: 92960; J0330; J0461; J2370

== ENCOUNTER → 2022-11-24 15:03 | Outpatient (BNVA) | payer MEDICARE, MEDICAID, SELFPAY | PROVIDERS: PCP Family Medicine; Visit Provider Nurse Practitioner Family | DX: G47.33 Obstructive sleep apnea (adult) (pediatric) (principal) | CPT/HCPCS: 99212 ==

== ENCOUNTER → 2022-11-25 11:37 | Outpatient (REF) | payer MEDICARE, MEDICAID, SELFPAY ==
--- NOTE | 2022-11-25 11:41 | HM_ITS ---
Conclusion: 1. Patient was monitored for total period of 3 days 2. Baseline was atrial fibrillation with average heart of 88 beats per minute 3. No significant pauses or bradycardia noted 4. Rare PVCs noted 5. Patient had to marked events without associated symptoms correlating with atrial fibrillation MTDD
== END ==
LOC: HO.CARD 11:37
PROVIDERS: PCP Family Medicine; Visit Provider Internal Medicine Cardiovascular Disease
DX: I48.19 Other persistent atrial fibrillation (principal)
CPT/HCPCS: 93242

== ENCOUNTER 2022-12-09 15:48 | Outpatient (REF) | payer MEDICARE, MEDICAID, SELFPAY ==
--- NOTE | ~2022-12-09 | MM_ITS ---
EXAMINATION: MM SCREENING DIGITAL BREAST TOMOSYNTHESIS, BILATERAL CLINICAL INFORMATION: Screening. Asymptomatic. The lifetime risk of breast cancer based on the Tyrer-Cuzick Model is 9%. COMPARISON: Mammography: 11/09/2021, 11/07/2020, 09/06/2019 TECHNIQUE: Digital breast tomosynthesis is performed in both the craniocaudal and mediolateral oblique views along with computer-aided detection (CAD). Synthesized 2D images are generated from the tomosynthesis. Additional bilateral CC and views are provided. FINDINGS: The breasts are almost entirely fatty (ACR BI-RADS breast composition Category a). Background stromal and fibroglandular densities are similar to prior studies. No developing density or architectural abnormality. There are no significant masses, abnormal calcifications, or other abnormalities. The axilla and skin contours are unremarkable. MM/MM tomosynthesis screening BI IMPRESSION: No mammographic evidence of malignancy. ASSESSMENT: BI-RADS 1: Negative RECOMMENDATION: Routine annual mammography screening. This patient's information was entered into a reminder system with a target due date for their next mammogram.
== END 2022-12-09 15:49 | disposition home or self-care (01) ==
LOC: HO.MAMMO 15:48
PROVIDERS: PCP Family Medicine; Visit Provider Family Medicine
DX: Z12.31 Encounter for screening mammogram for malignant neoplasm of breast (principal)
CPT/HCPCS: 77063; 77067

== ENCOUNTER 2023-01-03 13:29 | Outpatient (AMB) | payer MEDICARE, MEDICAID, SELFPAY ==
[2023-01-03 13:33] VITALS: BP 130/80; PULSE 96; BMI 40.4
--- NOTE | 2023-01-03 13:33 | MHC.OFFVIS ---
Intake Vital Signs 01/03/23 13:33 Height 5 ft 5 in Weight 242 lb 8.136 oz BMI 40.4 BP 130/80 Blood Pressure Location Lt brachial Position Sitting Pulse 96 Intake Visit Reasons: 6 week f/up after testing Intake Note: 6 week follow-up with ekg c/o fatigue and sob Computational Physicist Required: No Allergies adhesive tape Allergy (Mild, Verified 11/24/22 15:07) Rash house dust Allergy (Mild, Verified 11/24/22 15:07) runny nose, watery eyes duloxetine Allergy (Unknown, Verified 11/24/22 15:07) Rash Medication List - Last Reconciled 01/03/23 by Yony Irby MD atorvastatin 20 mg PO DAILY bupropion HCl 300 mg PO QAM fluticasone propionate 50 mcg/actuation 1 spray intranasal DAILY gabapentin 900 mg PO BEDTIME magnesium oxide 400 mg PO DAILY metoprolol succinate ER 100 mg PO DAILY multivitamin 1 tab PO DAILY omeprazole 20 mg PO DAILY rivaroxaban (Xarelto) 20 mg PO QPM venlafaxine ER 37.5 mg PO DAILY venlafaxine ER 75 mg PO DAILY HPI HPI Comments History of Present Illness Details Eufemia comes for follow-up. So far has failed rhythm control approach including after amiodarone cardioversion. Amiodarone was discontinued and put on metoprolol. She comes for follow-up and said continues to exertional fatigue and shortness of breath. She is not able to adjust to the CPAP machine but uses every night. Trying to lose weight. Taking all her medications. No overt orthopnea, PND, leg edema, unusual weight gain or abdominal distension. Denies palpitations or irregular heartbeat. No bleeding issues or neurologic events. [facility] Medical History Atrial fibrillation Depression Elevated cholesterol GERD (gastroesophageal reflux disease) HTN (hypertension) Palpitation Sleep apnea Surgical History H/O colonoscopy History of carpal tunnel surgery Family History Mother CAD (coronary artery disease) Father CAD (coronary artery disease) Social History Alcohol intake: current Alcohol intake frequency: holidays/special occasions only Patient Tobacco Use Status: Former Tobacco user Quit Date: 2005 Substance Use Type: Marijuana Review of Systems Const Denies chills, Denies fatigue, Denies fever(s), Denies frequent falls, Denies weakness, Denies weight gain and Denies weight loss ENT Denies dizziness Card Denies chest pain, Denies leg edema, Denies lightheadedness, Denies palpitations, Denies dyspnea, Denies dyspnea on exertion, Denies orthopnea and Denies other (loss of consciousness) Resp Denies cough, Denies dyspnea and Denies dyspnea on exertion GI Denies hematochezia and Denies change in stool character Musc Denies abnormal gait, Denies muscle weakness, Denies numbness, Denies radiating pain into limb and Denies tingling Neuro Denies Abnormal speech present, Denies abnormal gait, Denies dizziness, Denies frequent falls, Denies numbness, Denies tingling and Denies weakness Endo Denies fatigue and Denies palpitations Physical Exam Vital Signs: Last Vital Signs Pulse 96 01/03/23 13:33 BP 130/80 01/03/23 13:33 BMI result Body Mass Index 40.4 Const General: cooperative, comfortable, no acute distress, alert and awake Nutritional Appearance: obese Orientation/consciousness: patient oriented x3 Limitations: no limitations HEENT Head: Yes normocephalic and Yes atraumatic Neck Neck: Yes trachea midline, Yes supple and Yes no JVD Resp Effort & Inspection: normal respiratory effort Auscultation: clear to auscultation bilaterally Cardio Jugular venous distension: no JVD Rhythm: abnormal rhythm irregularly irregular Heart sounds: S1 normal heart sound present, S2 normal heart sound present, no click, no gallops, no murmurs and no rubs GI Auscultation: normal bowel sounds Skin General skin exam: no rashes or lesions noted Neuro General: patient oriented x3 and no focal motor deficits Speech: No Abnormal speech present Extrem General: Yes no clubbing, cyanosis or edema Assessment & Plan Assessment & Plan (1) Persistent atrial fibrillation: Code(s): I48.19 - Other persistent atrial fibrillation Plan: Persistent atrial fibrillation this middle-aged woman with symptoms despite rate control. Symptoms are due to loss of AV synchrony. However she is resistant atrial fibrillation and failed maintains rhythm after loading with amiodarone and cardioversion. Will refer her to EPS for consideration of ablation including pulmonary vein ablation as well as possible other ablative approaches. She has significant left atrial enlargement that makes it at risk for failure to maintain rhythm in the long run. However given her age and symptoms should pursue more aggressive treatment plan. Continue CPAP therapy aggressively. Continue aggressively to lose weight. May require combined approach with pharmacotherapy and ablation. This was discussed with her. Continue full oral anticoagulation, currently on Xarelto. Will follow up in the clinic in 3 months time, sooner p.r.n.. Thank you for allowing me to partake in his care Coding Level of Care Code Est Pt Level 4 (69790) Diagnoses Persistent atrial fibrillation I48.19
== END 2023-01-03 13:51 | disposition home or self-care (01) ==
PROVIDERS: Visit Provider Internal Medicine Cardiovascular Disease
DX: I48.19 Other persistent atrial fibrillation (principal)
CPT/HCPCS: 99214

== ENCOUNTER → 2023-01-03 13:29 | Outpatient (BNVA) | payer MEDICARE, MEDICAID, SELFPAY | PROVIDERS: Visit Provider Internal Medicine Cardiovascular Disease | DX: I48.19 Other persistent atrial fibrillation (principal) | CPT/HCPCS: 99212 ==

== ENCOUNTER 2023-04-26 12:21 | Outpatient (AMB) | payer MEDICARE, MEDICAID, SELFPAY ==
[2023-04-26 12:32] VITALS: BP 124/82; BMI 38.5
--- NOTE | 2023-04-26 12:32 | MHC.OFFVIS ---
Intake Vital Signs 04/26/23 12:32 Height 5 ft 5 in Weight 231 lb 7.766 oz BMI 38.5 BP 124/82 Blood Pressure Location Lt brachial Position Sitting Intake Visit Reasons: 3 month follow up w/ EKG Intake Note: 3 Month follow-up with ekg see EP [facility] on 05/30 feeling ok Stock Puller Required: No Allergies adhesive tape Allergy (Mild, Verified 11/24/22 15:07) Rash house dust Allergy (Mild, Verified 11/24/22 15:07) runny nose, watery eyes duloxetine Allergy (Unknown, Verified 11/24/22 15:07) Rash Medication List - Last Reconciled 04/26/23 by Yony Irby MD atorvastatin 20 mg PO DAILY bupropion HCl 300 mg PO QAM fluticasone propionate 50 mcg/actuation 1 spray intranasal DAILY gabapentin 400 mg PO DAILY gabapentin 400 mg PO BEDTIME magnesium oxide 400 mg PO DAILY metoprolol succinate ER 100 mg PO DAILY multivitamin 1 tab PO DAILY omeprazole 20 mg PO DAILY rivaroxaban (Xarelto) 20 mg PO QPM HPI HPI Comments History of Present Illness Details Eufemia comes for follow-up. Has not had electrophysiology consultation as yet. Remains in atrial fibrillation. Continues to have symptoms exertional fatigue and shortness of breath. No clear orthopnea, PND, leg edema. Has been losing weight and has lost about 18 lb with exercise and diet. Trying to use CPAP regularly. Denies any prolonged palpitation irregular heartbeat. No bleeding issues or neurologic events. [facility] Medical History GERD (gastroesophageal reflux disease) Elevated cholesterol HTN (hypertension) Sleep apnea Depression Atrial fibrillation Palpitation Surgical History H/O colonoscopy History of carpal tunnel surgery Family History Mother CAD (coronary artery disease) Father CAD (coronary artery disease) Social History Alcohol intake: current Alcohol intake frequency: holidays/special occasions only Patient Tobacco Use Status: Former Tobacco user Quit Date: 2005 Substance Use Type: Marijuana Review of Systems Const Denies chills, Denies fatigue, Denies fever(s), Denies frequent falls, Denies weakness, Denies weight gain and Denies weight loss ENT Denies dizziness Card Denies chest pain, Denies leg edema, Denies lightheadedness, Denies palpitations, Denies dyspnea, Denies dyspnea on exertion, Denies orthopnea and Denies other (loss of consciousness) Resp Denies cough, Denies dyspnea and Denies dyspnea on exertion GI Denies hematochezia and Denies change in stool character Musc Denies abnormal gait, Denies muscle weakness, Denies numbness, Denies radiating pain into limb and Denies tingling Neuro Denies Abnormal speech present, Denies abnormal gait, Denies dizziness, Denies frequent falls, Denies numbness, Denies tingling and Denies weakness Endo Denies fatigue and Denies palpitations Physical Exam Vital Signs: Last Vital Signs BP 124/82 04/26/23 12:32 BMI result Body Mass Index 38.5 Const General: cooperative, comfortable, no acute distress, alert and awake Nutritional Appearance: obese Orientation/consciousness: patient oriented x3 Limitations: no limitations HEENT Head: Yes normocephalic and Yes atraumatic Neck Neck: Yes trachea midline, Yes supple and Yes no JVD Resp Effort & Inspection: normal respiratory effort Auscultation: clear to auscultation bilaterally Cardio Jugular venous distension: no JVD Rhythm: abnormal rhythm irregularly irregular Heart sounds: S1 normal heart sound present, S2 normal heart sound present, no click, no gallops, no murmurs and no rubs GI Auscultation: normal bowel sounds Skin General skin exam: no rashes or lesions noted Neuro General: patient oriented x3 and no focal motor deficits Speech: No Abnormal speech present Extrem General: Yes no clubbing, cyanosis or edema Office Procedures EKG Details: EKG shows atrial fibrillation at 88 beats per with nonspecific T-wave changes [id number], Complete Assessment & Plan Assessment & Plan (1) Persistent atrial fibrillation: Code(s): I48.19 - Other persistent atrial fibrillation Plan: Persistent rate control atrial fibrillation current therapy but with persistent symptoms most likely related to loss of AV synchrony. Has failed rhythm control approach with repeat cardioversion including on amiodarone therapy with significant left atrial enlargement. Most likely due to advanced structural left atrial abnormalities. Have referred her to EPS to consider possibility of ablation therapy in addition to pharmacologic therapy to maintain rhythm given her age to reduce long-term complications including heart failure. Although likelihood of success rate is low. This was discussed with her. Continue current rate control approach along with oral anticoagulation therapy. Continue participate in weight loss program and continue to use CPAP therapy and aggressively treat blood pressure. See below. (2) Hypertension: Code(s): I10 - Essential (primary) hypertension Plan: Hypertension which is currently optimized advised to monitor blood pressure at home maintain a log. Goal blood pressure less than 130/84 achieved. Low-salt diet was discussed. Continue CPAP therapy. Continue participate heart healthy lifestyle. Will follow up in the clinic in 6 months time, sooner p.r.n.. Thank you for allowing me to partake in her care Coding Level of Care Code Est Pt Level 4 (31450) Diagnoses Persistent atrial fibrillation I48.19 Hypertension I10 CPT Codes EKG - CPT: 23871-[id number], Complete ([id number])
== END 2023-04-26 12:54 | disposition home or self-care (01) ==
PROVIDERS: PCP Family Medicine; Visit Provider Internal Medicine Cardiovascular Disease
DX: I48.19 Other persistent atrial fibrillation (principal); I10 Essential (primary) hypertension
CPT/HCPCS: 93010; 99214

== ENCOUNTER → 2023-04-26 12:21 | Outpatient (BNVA) | payer MEDICARE, MEDICAID, SELFPAY | PROVIDERS: PCP Family Medicine; Visit Provider Internal Medicine Cardiovascular Disease | DX: I48.19 Other persistent atrial fibrillation (principal); I10 Essential (primary) hypertension | CPT/HCPCS: 93005; 99212 ==

== ENCOUNTER 2023-05-09 11:30 | Outpatient (AMB) | payer MEDICARE, MEDICAID, SELFPAY ==
--- NOTE | 2023-05-09 11:33 | MHC.OFFVIS ---
Intake Vital Signs 05/09/23 11:36 Height 5 ft 5 in Weight 234 lb BMI 38.9 BP 110/72 Blood Pressure Location Lt brachial Position Sitting Pulse 85 Pulse Source Pulse Oximeter Pulse Oximetry (%) 98 Oxygen Delivery Method Room Air Intake Visit Reasons: 6month Follow up for SHAI-LVM Intake Note: F/U for SHAI, has cpap Broomcorn Scraper Required: No Allergies adhesive tape Allergy (Mild, Verified 05/09/23 11:35) Rash house dust Allergy (Mild, Verified 05/09/23 11:35) runny nose, watery eyes duloxetine Allergy (Unknown, Verified 05/09/23 11:35) Rash HPI HPI Comments History of Present Illness Details 61 y/o female patient presents for follow up of SHAI on ASV. ASV compliance report reveals ASVAuto Min EPAP 5 cmH2O, Max EPAP 13 cmH2O, Min PS 3 cmH2O, Max PS 15 cmH2O; overall usage of 64% with average usage hours 1 hour. The residual AHI of 11.6/hr. ? Pt states that the mask slips off of her hair, and the strap irritate her skin. She also keep taking off the mask, she feels hot. She wakes up frequently due to body pain. [facility] Medical History GERD (gastroesophageal reflux disease) Elevated cholesterol HTN (hypertension) Sleep apnea Depression Atrial fibrillation Palpitation Surgical History H/O colonoscopy History of carpal tunnel surgery Family History Mother CAD (coronary artery disease) Father CAD (coronary artery disease) Social History (Updated 05/09/23 @ 11:36 by Miriam Montero CMA) Alcohol intake: current Alcohol intake frequency: holidays/special occasions only Patient Tobacco Use Status: Former Tobacco user Quit Date: 2005 Substance Use Type: Marijuana Review of Systems Const All systems reviewed & are unremarkable except as noted in HPI and below ENT Reports Normal hearing present Neuro Reports Normal hearing present Physical Exam Vital Signs: Last Vital Signs Pulse 85 05/09/23 11:36 BP 110/72 05/09/23 11:36 Pulse Ox 98 05/09/23 11:36 Oxygen Delivery Method Room Air 05/09/23 11:36 Const General: no acute distress Orientation/consciousness: patient oriented x3 Resp Effort & Inspection: able to speak in complete sentences Neuro General: patient oriented x3 and gait normal Cranial nerves: Yes Bilaterally intact EOM present, Yes Normal facial strength present, Yes Symmetric palate elevation present, Yes Normal hearing present, Yes Ability to bilaterally rotate head present and Yes Ability to bilaterally elevate shoulders present Cognition (Neuro): normal cognition Motor exam (neuro): 5/5 motor strength present throughout Psych Appearance: grossly normal Mental Status: mental status grossly normal Speech and movement: Clear speech present Attitude: cooperative Assessment & Plan Assessment & Plan (1) Treatment-emergent central sleep apnea: Code(s): G47.39 - Other sleep apnea (2) Severe obstructive sleep apnea: Code(s): G47.33 - Obstructive sleep apnea (adult) (pediatric) Plan Continue to use ASVAuto Min EPAP 5 cmH2O, Max EPAP 13 cmH2O, Min PS 3 cmH2O, Max PS 15 cmH2O with RR 15 and heated humidifier. Discussed goal if for use nightly > 4 hours. Advised patient to try CPAP strap cover to prevent skin irritation. New CPAP mask fitting prescription sent to [facility] and handed in to patient to schedule. Coding Level of Care Code Est Pt Level 3 (97562) Diagnoses Treatment-emergent central sleep apnea G47.39 Severe obstructive sleep apnea G47.33
[2023-05-09 11:36] VITALS: BP 110/72; PULSE 85; O2SAT 98; BMI 38.9
== END 2023-05-09 11:55 | disposition home or self-care (01) ==
PROVIDERS: PCP Family Medicine; Visit Provider Nurse Practitioner Family
DX: G47.39 Other sleep apnea (principal); G47.33 Obstructive sleep apnea (adult) (pediatric)
CPT/HCPCS: 99213

== ENCOUNTER → 2023-05-09 11:30 | Outpatient (BNVA) | payer MEDICARE, MEDICAID, SELFPAY | PROVIDERS: PCP Family Medicine; Visit Provider Nurse Practitioner Family | DX: G47.33 Obstructive sleep apnea (adult) (pediatric) (principal); G47.39 Other sleep apnea | CPT/HCPCS: 99212 ==

== ENCOUNTER 2023-05-26 12:34 | Outpatient (REF) | payer MEDICARE, MEDICAID, SELFPAY ==
[2023-05-26 16:21] LABS: Alanine Aminotransferase 14 U/L (0-31); Albumin Level 3.9 g/dL (3.5-5.0); Alkaline Phosphatase 130 U/L (39-117); Anion Gap 11 (12-20); Aspartate Amino Transferase 17 U/L (5-31); Bilirubin Total 1.2 mg/dL (0.0-1.0); Blood Urea Nitrogen 9 mg/dL (9-16); Calcium 9.3 mg/dL (8.4-10.2); Carbon Dioxide 29 mmol/L (22-29); Chloride 104 mmol/L (96-108); Cholesterol 141 mg/dL (<200); Estimated Glomerular Filt Rate > 60; Glucose Fasting 92 mg/dL (60-99); HDL Cholesterol 40 mg/dL (>40); LDL Cholesterol Calculated 77 mg/dL (<100); Sodium 140 mmol/L (135-145); Total Protein 7.6 g/dL (6.5-8.0); Triglycerides 120 mg/dL (<150)
== END 2023-05-26 12:35 | disposition home or self-care (01) ==
LOC: HO.HMGCLDS 12:34
PROVIDERS: PCP Family Medicine; Visit Provider Family Medicine
DX: E78.00 Pure hypercholesterolemia, unspecified (principal); G62.9 Polyneuropathy, unspecified; R73.9 Hyperglycemia, unspecified; Z79.899 Other long term (current) drug therapy
CPT/HCPCS: 36415; 80053; 80061; 82550

== ENCOUNTER 2023-07-19 10:26 | Day surgery (SDC) | payer MEDICARE, MEDICAID, SELFPAY ==
[2023-07-15 14:05] VITALS: BMI 39.5
--- NOTE | 2023-07-18 08:21 | HO.ANESPROP2 ---
Documented by User: Zulma Savage NP 07/18/23 08:23 HPI - Anesthesia Eval Consult details Narrative: 62yo F for Upper Endoscopy and Colonoscopy [place] [facility] [place]. On Xarelto. Considering ablation d/t persistent afib despite cardioversions. s/p cardioversion 10/2022 with GA-mask PMFSH Active Problems Active Problems: All Active Problems (Updated 07/15/23 @ 13:58 by Edna Swartz RN) Persistent atrial fibrillation (Acute) Treatment-emergent central sleep apnea (Acute) Depression (Acute) Hypertension (Acute) Severe obstructive sleep apnea (Acute) Past Medical History Medical History History of cardioversion GERD (gastroesophageal reflux disease) Elevated cholesterol HTN (hypertension) Sleep apnea Depression Atrial fibrillation Palpitation Family History Family History Mother CAD (coronary artery disease) Father CAD (coronary artery disease) Family history of problems with anesthesia: No Surgical History Surgical History H/O colonoscopy History of carpal tunnel surgery History of Problems with Anesthesia: No Social History Social History (Updated 07/19/23 @ 12:53 by Susy Ma MD) Alcohol intake: current Alcohol intake frequency: holidays/special occasions only Patient Tobacco Use Status: Former Tobacco user Quit Date: 2005 Substance Use Type: Marijuana Meds Allergies Allergy/AdvReac Type Severity Reaction Status Date / Time duloxetine Allergy Intermediate Rash Verified 07/19/23 10:40 adhesive tape Allergy Mild Rash Verified 07/19/23 10:40 house dust Allergy Mild runny Verified 07/19/23 10:40 nose, watery eyes Home Medications Medication Instructions Recorded Confirmed Last Taken Type atorvastatin 20 mg tablet 20 mg PO DAILY 04/15/20 07/15/23 07/18/23 History fluticasone propionate 50 1 spray intranasal DAILY 04/15/20 07/15/23 07/18/23 History mcg/actuation nasal spray,suspension omeprazole 20 mg capsule,delayed 20 mg PO DAILY 04/15/20 07/15/23 07/18/23 History release magnesium oxide 400 mg PO DAILY 07/14/21 07/15/23 07/18/23 History multivitamin 1 tab PO DAILY 07/14/21 07/15/23 07/18/23 History bupropion HCl 300 mg 24 hr tablet, 300 mg PO QAM 11/01/22 07/15/23 07/18/23 History extended release gabapentin 300 mg capsule 400 mg PO BEDTIME 04/26/23 07/15/23 07/18/23 History gabapentin 400 mg capsule 400 mg PO DAILY 04/26/23 07/15/23 07/18/23 History omeprazole 20 mg capsule,delayed 20 mg PO DAILY 07/19/23 07/19/23 Unknown History release Exam Height,Weight and Vital Signs: Height 5 ft 4 in Weight 104.326 kg Pertinent Lab Results Pertinent Lab Results: Laboratory Tests 05/26/23 12:40 Sodium 140 Potassium 4.0 Chloride 104 Carbon Dioxide 29 BUN 9 Creatinine 0.65 Narrative Narrative: EKG 03/2023 atrial fibrillation at 88 beats per with nonspecific T-wave changes ECHO 10/2022 Conclusions: - The left ventricular systolic function is normal. The visually estimated ejection fraction is between 55-60%. - The left atrium is severely dilated. - There is mild calcification of the aortic valve. - There is moderate mitral annular calcification. - In some images/accompanying EKG, atrial fibrillation rates >100/min. Correlate clinically. Assessment and Plan Assessment Anesthesia Assessment: Chart Reviewed Final Anesthetic Review Family History of Problems with Anesthesia: No History of Problems with Anesthesia: No Documented by User: Susy Ma MD 07/19/23 12:54 [facility] Active Problems Active Problems: All Active Problems (Updated 07/19/23 @ 11:07 by Susy Ma MD) Persistent atrial fibrillation (Acute). S/p cardioversion. Did not work. Awaiting ablation Treatment-emergent central sleep apnea (Acute) Depression (Acute) Hypertension (Acute) Severe obstructive sleep apnea (Acute)- not compliant with CPAP. Unable to tolerate Obesity BMI 39.5 Past Medical History Medical History History of cardioversion GERD (gastroesophageal reflux disease) Elevated cholesterol HTN (hypertension) Sleep apnea Depression Atrial fibrillation Palpitation Family History Family History Mother CAD (coronary artery disease) Father CAD (coronary artery disease) Family history of problems with anesthesia: No Surgical History Surgical History H/O colonoscopy History of carpal tunnel surgery History of Problems with Anesthesia: No Social History Social History (Updated 07/19/23 @ 12:53 by Susy Ma MD) Alcohol intake: current Alcohol intake frequency: holidays/special occasions only Patient Tobacco Use Status: Former Tobacco user Quit Date: 2005 Substance Use Type: Marijuana Meds Allergies Allergy/AdvReac Type Severity Reaction Status Date / Time duloxetine Allergy Intermediate Rash Verified 07/19/23 10:40 adhesive tape Allergy Mild Rash Verified 07/19/23 10:40 house dust Allergy Mild runny Verified 07/19/23 10:40 nose, watery eyes Home Medications Medication Instructions Recorded Confirmed Last Taken Type atorvastatin 20 mg tablet 20 mg PO DAILY 04/15/20 07/15/23 07/18/23 History fluticasone propionate 50 1 spray intranasal DAILY 04/15/20 07/15/23 07/18/23 History mcg/actuation nasal spray,suspension omeprazole 20 mg capsule,delayed 20 mg PO DAILY 04/15/20 07/15/23 07/18/23 History release magnesium oxide 400 mg PO DAILY 07/14/21 07/15/23 07/18/23 History multivitamin 1 tab PO DAILY 07/14/21 07/15/23 07/18/23 History bupropion HCl 300 mg 24 hr tablet, 300 mg PO QAM 11/01/22 07/15/23 07/18/23 History extended release gabapentin 300 mg capsule 400 mg PO BEDTIME 04/26/23 07/15/23 07/18/23 History gabapentin 400 mg capsule 400 mg PO DAILY 04/26/23 07/15/23 07/18/23 History omeprazole 20 mg capsule,delayed 20 mg PO DAILY 07/19/23 07/19/23 Unknown History release Exam Height,Weight and Vital Signs: Height 5 ft 4 in Weight 104.326 kg Vital Signs Temp Pulse Resp BP Pulse Ox O2 Del Method 97.6 F 92 18 124/78 97 Room Air 07/19/23 11:00 07/19/23 11:00 07/19/23 11:00 07/19/23 11:00 07/19/23 11:00 07/19/23 11:00 Narrative Narrative: EKG 03/2023 atrial fibrillation at 88 beats per with nonspecific T-wave changes ECHO 10/2022 Conclusions: - The left ventricular systolic function is normal. The visually estimated ejection fraction is between 55-60%. - The left atrium is severely dilated. - There is mild calcification of the aortic valve. - There is moderate mitral annular calcification. - In some images/accompanying EKG, atrial fibrillation rates >100/min. Correlate clinically. Airway Mallampati Class: II TM Dist: >3cm Neck ROM: Full Loose/Missing/Broken Teeth: Yes (Edentulous) Heart: Irregularly irregular Lungs: CTAB Assessment and Plan Assessment Anesthesia Assessment: Anesthesia Plan Discussed Final Anesthetic Review Family History of Problems with Anesthesia: No History of Problems with Anesthesia: No NPO: Yes ASA Class: III Final Preanesthetic Review: No Changes in Pt Med Stat, Meds/Allgs Chart Reviewed, Consent Obtained/Reviewed and Anes Risks/Benef Reviewed Patient Risk: High Procedure Risk: Low Assessment/Block/Sedation in SS: Assess/Block/Sedation-SS Anesthetic Plan Anesthetic Plan: MAC: and TIVA Disposition: Standard PACU
[2023-07-19 10:46] VITALS: BMI 39.5
[2023-07-19 11:00] VITALS: BP 124/78; PULSE 92; RESP 18; TEMP 36.4; O2SAT 97
[2023-07-19] MEDS: Lactated Ringers 1,000 ML 100 ML IVCONT (11:13)
--- NOTE | 2023-07-19 11:22 | MHC.SHP ---
Pre-Procedural Eval Section A Date of Service: 07/19/23 Section B Chief Complaint: gerd,screening Details of Present Illness: see H&P no changes Relevant Family History (Specify if Yes): No Relevant Social History: None Present Medications: see Short Stay Collaborative assessment Medical History: No relevant PMH Allergies: Allergies Allergy/AdvReac Type Severity Reaction Status Date / Time duloxetine Allergy Intermediate Rash Verified 07/19/23 10:40 adhesive tape Allergy Mild Rash Verified 07/19/23 10:40 house dust Allergy Mild runny Verified 07/19/23 10:40 nose, watery eyes Review of Systems Sugical H&P ROS: Negative: Constitution, Cardiovascular, Respiratory, Neurological, Psychiatric, Hem-Onc, Allergic/Immunologic, Gastrointestinal, Genitourinary, Musculoskeletal, Integumentary, Endocrine and Eyes/Ears/Nose/Throat Exam Surgical H&P Exam: Normal: HEENT, Normal: Heart, Normal: Lungs, Normal: Extremities, Normal: Abdomen, Normal: Skin and Normal: Neurological Plan Diagnosis/Plan: Unchanged I have reviewed the history and physical and performed a pertinent physical examination on my patient. No changes have occurred unless specified. Time Spent With Patient Time: Total time managing care of this patient today ____ minutes.
[2023-07-19 12:05] VITALS: BP 97/57; PULSE 102; RESP 21; TEMP 36.3; O2SAT 99
[2023-07-19 12:35] VITALS: BP 105/85; PULSE 89; RESP 17; TEMP 36.3; O2SAT 98
--- NOTE | 2023-07-19 12:39 | OP_ITS ---
DATE OF SERVICE: 07/19/2023 SURGEON: Boaz Franco MD INDICATIONS: 1. Gastroesophageal reflux disease. 2. Colon cancer screening. PREOPERATIVE DIAGNOSIS: POSTOPERATIVE DIAGNOSIS: PROCEDURE PERFORMED: Upper endoscopy with biopsy, colonoscopy to the terminal ileum. ESTIMATED BLOOD LOSS: COMPLICATIONS: ANESTHESIA: Monitored anesthesia care. ASSISTANTS: SPECIMENS: DESCRIPTION OF PROCEDURE: A history and physical was performed. The risks and benefits of the procedure were explained to the patient. Informed consent was obtained. The patient was placed in the left lateral decubitus position. The Olympus video gastroscope was introduced into the esophagus, stomach, and duodenum. Examination was performed. The scope was removed. She was repositioned for colonoscopy. A digital rectal exam was performed and was found to be normal. The Olympus pediatric video colonoscope was introduced into the rectum and advanced to the cecum. The cecum was identified by transillumination, palpation, and identification of ileocecal valve examination was performed. The scope was removed. She tolerated both procedures well and was returned to the recovery room in stable condition. FINDINGS: Upper endoscopy: 1. Esophagus: The esophagus was normal. There was an irregular EG junction that was biopsied. 2. Stomach: Stomach showed no evidence of masses, ulcers, or polyps. Antral biopsies were obtained to evaluate for H pylori. 3. Duodenum: The bulb and 2nd portion were normal. Colonoscopy: The terminal ileum was examined and appeared normal. The visualized colonic mucosa was within normal limits without evidence of masses or ulcers. No polyps were identified. The quality of the prep was good. Retroflexed examination showed moderate-sized internal hemorrhoids. IMPRESSION: 1. Gastroesophageal reflux disease. 2. Normal colonoscopy. RECOMMENDATION: 1. Follow up the biopsy results. 2. Repeat colonoscopy is recommended in 10 years for average risk individuals. MD JOHN Hernandez/SADIEL / [id number]
== END 2023-07-19 13:07 | disposition home or self-care (01) ==
PROVIDERS: PCP Family Medicine; Visit Provider Internal Medicine Gastroenterology
PROC: (CPT 43239; principal; 2023-07-19 11:40)
DX: K21.9 Gastro-esophageal reflux disease without esophagitis (principal); Z12.11 Encounter for screening for malignant neoplasm of colon; Z86.010 Personal history of colon polyps; I10 Essential (primary) hypertension; E78.5 Hyperlipidemia, unspecified; I48.19 Other persistent atrial fibrillation; G47.33 Obstructive sleep apnea (adult) (pediatric); Z99.89 Dependence on other enabling machines and devices
CPT/HCPCS: 43239; G0105; 88305; 88313; 88342; J1596; J2704; J3010

== ENCOUNTER 2023-10-19 14:29 | Outpatient (AMB) | payer MEDICARE, MEDICAID, SELFPAY ==
--- NOTE | 2023-10-19 14:35 | MHC.OFFVIS ---
Vital Signs 10/19/23 14:46 Height 5 ft 4 in Weight 225 lb BMI 38.6 BP 120/80 Blood Pressure Location Lt brachial Position Sitting Pulse 73 Pulse Source Pulse Oximeter Pulse Oximetry (%) 97 Oxygen Delivery Method Room Air Intake Visit Reasons: 6 mnts f/u for SHAI-Conf Intake Note: Patient presents for F/U. Allergies duloxetine Allergy (Intermediate, Verified 10/19/23 14:41) Rash adhesive tape Allergy (Mild, Verified 10/19/23 14:41) Rash house dust Allergy (Mild, Verified 10/19/23 14:41) runny nose, watery eyes HPI Comments Details: 62 y/o female patient presents for follow up of SHAI on ASV. ASV compliance report reveals ASVAuto Min EPAP 5 cmH2O, Max EPAP 13 cmH2O, Min PS 3 cmH2O, Max PS 15 cmH2O; overall usage of 80% with average usage hours 2 hours 30 min. The residual AHI of 12.1/hr. ? Pt reports she is able to use ASV a little more than before. Pt had a different mask. She wakes up frequently due to body pain and restless. She started taking hydroxyzine 25 mg and it helps her sleep better. [facility] Medical History History of cardioversion GERD (gastroesophageal reflux disease) Elevated cholesterol HTN (hypertension) Sleep apnea Depression Atrial fibrillation Palpitation Surgical History H/O cardiac radiofrequency ablation H/O colonoscopy History of carpal tunnel surgery Family History Mother CAD (coronary artery disease) Father CAD (coronary artery disease) Social History Alcohol intake: current Alcohol intake frequency: holidays/special occasions only Patient Tobacco Use Status: Former Tobacco user Quit Date: 2005 Substance Use Type: Marijuana Review of Systems Const All systems reviewed & are unremarkable except as noted in HPI and below ENT Reports Normal hearing present Neuro Reports Normal hearing present Physical Exam Vital Signs: Last Vital Signs Pulse 73 10/19/23 14:46 BP 120/80 10/19/23 14:46 Pulse Ox 97 10/19/23 14:46 Oxygen Delivery Method Room Air 10/19/23 14:46 BMI result Body Mass Index 38.6 Const General: no acute distress Orientation/consciousness: patient oriented x3 Resp Effort & Inspection: able to speak in complete sentences Neuro General: patient oriented x3 and gait normal Cranial nerves: Yes Bilaterally intact EOM present, Yes Normal facial strength present, Yes Symmetric palate elevation present, Yes Normal hearing present, Yes Ability to bilaterally rotate head present and Yes Ability to bilaterally elevate shoulders present Cognition (Neuro): normal cognition Motor exam (neuro): 5/5 motor strength present throughout Psych Appearance: grossly normal Mental Status: mental status grossly normal Speech and movement: Clear speech present Attitude: cooperative Assessment & Plan Assessment & Plan (1) Treatment-emergent central sleep apnea: Code(s): G47.39 - Other sleep apnea Category: Medical (2) Severe obstructive sleep apnea: Code(s): G47.33 - Obstructive sleep apnea (adult) (pediatric) Category: Medical Plan Continue to use ASVAuto Min EPAP 5 cmH2O, Max EPAP 13 cmH2O, Min PS 3 cmH2O, Max PS 15 cmH2O. Discussed goal if for use nightly > 4 hours. Continue to take hydroxyzine 25 mg and magnesium 400 mg qHS for sleep. Coding Level of Care Code Est Pt Level 3 (58668) Diagnoses Treatment-emergent central sleep apnea G47.39 Severe obstructive sleep apnea G47.33
[2023-10-19 14:46] VITALS: BP 120/80; PULSE 73; O2SAT 97; BMI 38.6
== END 2023-10-19 15:03 | disposition home or self-care (01) ==
PROVIDERS: PCP Family Medicine; Visit Provider Nurse Practitioner Family
DX: G47.39 Other sleep apnea (principal); G47.33 Obstructive sleep apnea (adult) (pediatric)
CPT/HCPCS: 99213

== ENCOUNTER → 2023-10-19 14:29 | Outpatient (BNVA) | payer MEDICARE, MEDICAID, SELFPAY | PROVIDERS: PCP Family Medicine; Visit Provider Nurse Practitioner Family | DX: G47.39 Other sleep apnea (principal); G47.33 Obstructive sleep apnea (adult) (pediatric) | CPT/HCPCS: 99212 ==

== ENCOUNTER 2023-11-16 08:45 | Outpatient (REF) | payer MEDICARE, MEDICAID, SELFPAY ==
[2023-11-16 14:03] LABS: Hematocrit 38.6 % (37.0-47.0); Hemoglobin 12.4 g/dl (12.0-16.0); Mean Corpuscular HGB Conc 32.1 g/dl (31.0-35.0); Mean Corpuscular Hemoglobin 26.8 pg (27.0-33.0); Mean Corpuscular Volume 83.4 fL (80.0-98.0); Mean Platelet Volume 9.9 fL (9.4-12.3); Platelet Count 401 X10*3/uL (160-400); Red Blood Count 4.63 X10*6/uL (4.20-5.50); Red Cell Distribution Width 14.7 % (11.0-16.0); White Blood Count 10.6 X10*3/uL (4.8-10.8)
[2023-11-16 14:35] LABS: B Type Natriuretic Peptide 75 pg/mL (<100)
[2023-11-16 14:38] LABS: Anion Gap 15 (12-20); Blood Urea Nitrogen 8 mg/dL (9-16); Calcium 9.7 mg/dL (8.4-10.2); Carbon Dioxide 25 mmol/L (22-29); Chloride 105 mmol/L (96-108); Estimated Glomerular Filt Rate > 60; Glucose Random 96 mg/dL (60-115); Potassium 3.7 mmol/L (3.3-5.1); Sodium 141 mmol/L (135-145)
== END 2023-11-16 08:46 | disposition home or self-care (01) ==
LOC: HO.LAB 08:45
PROVIDERS: PCP Family Medicine; Visit Provider Internal Medicine Cardiovascular Disease
DX: I48.0 Paroxysmal atrial fibrillation (principal); I10 Essential (primary) hypertension
CPT/HCPCS: 36415; 80048; 83880; 85027; 93005; 99212

== ENCOUNTER 2023-11-16 08:45 | Outpatient (AMB) | payer MEDICARE, MEDICAID, SELFPAY ==
--- NOTE | 2023-11-16 08:46 | A.OFFVIS_ITS ---
Vital Signs 11/16/23 08:48 Height 5 ft 4 in Weight 227 lb 1.218 oz BMI 39.0 BP 120/78 Blood Pressure Location Lt brachial Position Sitting Pulse 74 Intake Visit Reasons: 6 mth f/up Intake Note: 6 month follow-up with ekg Allergies duloxetine Allergy (Intermediate, Verified 10/19/23 14:41) Rash adhesive tape Allergy (Mild, Verified 10/19/23 14:41) Rash house dust Allergy (Mild, Verified 10/19/23 14:41) runny nose, watery eyes Medication List - Last Reconciled 11/16/23 by Yony Irby MD atorvastatin 20 mg PO DAILY bupropion HCl XL 300 mg PO QAM fluticasone propionate 50 mcg/actuation 1 spray intranasal DAILY gabapentin 400 mg PO DAILY gabapentin 400 mg PO BEDTIME hydroxyzine pamoate 25 mg PO DAILY PRN magnesium oxide 400 mg PO DAILY multivitamin 1 tab PO DAILY omeprazole 20 mg PO DAILY omeprazole 20 mg PO DAILY rivaroxaban (Xarelto) 20 mg PO QPM sotalol 80 mg PO BID HPI Comments Details: Eufemia comes for follow-up. She says she has been doing very well with rhythm control approach with much improved symptoms of exercise tolerance. Her shortness of breath is improved. She has not motivated in losing weight and is trying to modify her diet. She has using a CPAP regularly. Her blood pressure is better controlled. She has no other heart failure symptoms. Status post ablation therapy. Currently on sotalol as well as Xarelto which she is tolerating well. [facility] Medical History (Updated 11/16/23 @ 09:10 by Yony Irby MD) Paroxysmal atrial fibrillation Persistent atrial fibrillation History of cardioversion GERD (gastroesophageal reflux disease) Elevated cholesterol HTN (hypertension) Sleep apnea Depression Atrial fibrillation Palpitation Surgical History H/O cardiac radiofrequency ablation H/O colonoscopy History of carpal tunnel surgery Family History Mother CAD (coronary artery disease) Father CAD (coronary artery disease) Social History Alcohol intake: current Alcohol intake frequency: holidays/special occasions only Patient Tobacco Use Status: Former Tobacco user Quit Date: 2005 Substance Use Type: Marijuana Review of Systems Const Denies chills, Denies fatigue, Denies fever(s), Denies frequent falls, Denies weakness, Denies weight gain and Denies weight loss ENT Denies dizziness Card Denies chest pain, Denies leg edema, Denies lightheadedness, Denies palpitations, Denies dyspnea, Denies dyspnea on exertion, Denies orthopnea and Denies other (loss of consciousness) Resp Denies cough, Denies dyspnea and Denies dyspnea on exertion GI Denies hematochezia and Denies change in stool character Musc Denies abnormal gait, Denies muscle weakness, Denies numbness, Denies radiating pain into limb and Denies tingling Neuro Denies Abnormal speech present, Denies abnormal gait, Denies dizziness, Denies frequent falls, Denies numbness, Denies tingling and Denies weakness Endo Denies fatigue and Denies palpitations Physical Exam Vital Signs: Last Vital Signs Pulse 74 11/16/23 08:48 BP 120/78 11/16/23 08:48 BMI result Body Mass Index 39.0 Const General: cooperative, comfortable, no acute distress, alert and awake Nutritional Appearance: obese Orientation/consciousness: patient oriented x3 Limitations: no limitations HEENT Head: Yes normocephalic and Yes atraumatic Neck Neck: Yes trachea midline, Yes supple and Yes no JVD Resp Effort & Inspection: normal respiratory effort Auscultation: clear to auscultation bilaterally Cardio Jugular venous distension: no JVD Rate: regular rate Rhythm: regular rhythm Heart sounds: S1 normal heart sound present, S2 normal heart sound present, no click, no gallops, no murmurs and no rubs GI Auscultation: normal bowel sounds Skin General skin exam: no rashes or lesions noted Neuro General: patient oriented x3 and no focal motor deficits Speech: No Abnormal speech present Extrem General: Yes no clubbing, cyanosis or edema Office Procedures EKG Details: EKG shows normal sinus rhythm with low P-wave amplitude consistent with atrial myopathy with nonspecific T-wave changes with normal QTC interval [id number], Complete Assessment & Plan Assessment & Plan (1) Paroxysmal atrial fibrillation: Code(s): I48.0 - Paroxysmal atrial fibrillation Category: Medical Plan: Highly symptomatic paroxysmal atrial fibrillation with predominantly heart failure symptoms. Has done extremely well with rhythm control approach. She has significant left atrial enlargement and likelihood for need for antiarrhythmic drug therapy in the long run is high. This was discussed with her. Continue sotalol therapy which is helping her. Continue full oral anticoagulation, currently on Xarelto 20 mg daily. Semi annual renal function test and potassium level should be pursued. Continue magnesium oxide. Avoidance of stimulants such as caffeine and alcohol was discussed. Continue CPAP therapy. She will benefit significantly from weight loss program and is motivated. Will refer to bariatric service to see if she can participate in medical weight loss which she is interested in. (2) Hypertension: Code(s): I10 - Essential (primary) hypertension Category: Medical Plan: Hypertension which is currently well optimized. Continue current therapy. Importance of good blood pressure control was discussed. Target goal blood pressure less than 130/84. Advised to monitor blood pressure at home maintain a log. Continue CPAP therapy. Continue participate in heart healthy lifestyle with regular physical activity and weight loss program. Follow up in the clinic in 6 months time, sooner p.r.n.. Thank you for allowing me to partake in her care Coding Level of Care Code Est Pt Level 4 (85160) Diagnoses Paroxysmal atrial fibrillation I48.0 Hypertension I10 CPT Codes EKG - CPT: 86762-[id number], Complete ([id number])
[2023-11-16 08:48] VITALS: BP 120/78; PULSE 74; BMI 39.0
== END 2023-11-16 09:10 | disposition home or self-care (01) ==
PROVIDERS: PCP Family Medicine; Visit Provider Internal Medicine Cardiovascular Disease
DX: I48.0 Paroxysmal atrial fibrillation (principal); I10 Essential (primary) hypertension
CPT/HCPCS: 93010; 99214

== ENCOUNTER 2023-12-09 07:03 | Day surgery (SDC) | payer MEDICARE, MEDICAID, SELFPAY ==
[2023-12-06 13:50] VITALS: BMI 39.0
--- NOTE | 2023-12-08 11:47 | HO.ANESPROP2 ---
Documented by User: Zulma Savage NP 12/08/23 11:48 HPI - Anesthesia Eval Consult details Narrative: 62yo F for Upper Endoscopy s/p EGD and Man 06/2023 with TIVA Follows [facility] for afib. On Xarelto. Stable at 10/2023 office visit with routine 6 month f/u. [facility] Active Problems Active Problems: All Active Problems Treatment-emergent central sleep apnea (Acute) Depression (Acute) Hypertension (Acute) Severe obstructive sleep apnea (Acute) Paroxysmal atrial fibrillation (Acute) Past Medical History Medical History Paroxysmal atrial fibrillation History of cardioversion GERD (gastroesophageal reflux disease) Elevated cholesterol HTN (hypertension) Sleep apnea Depression Atrial fibrillation Persistent atrial fibrillation Palpitation Family History Family History Mother CAD (coronary artery disease) Father CAD (coronary artery disease) Family history of problems with anesthesia: No Surgical History Surgical History History of esophagogastroduodenoscopy (EGD) H/O cardiac radiofrequency ablation H/O colonoscopy History of carpal tunnel surgery History of Problems with Anesthesia: No Social History Social History Alcohol intake: current Alcohol intake frequency: holidays/special occasions only Patient Tobacco Use Status: Former Tobacco user Use of substances other than those prescribed or required for medical reasons: No Substance Use Type: Marijuana Are you DNR?: No Advance Directives: No Advance Directives Information Provided: Yes Meds Allergies Allergy/AdvReac Type Severity Reaction Status Date / Time duloxetine Allergy Intermediate Rash Verified 12/09/23 07:11 adhesive tape Allergy Mild Rash Verified 12/09/23 07:11 house dust Allergy Mild runny Verified 12/09/23 07:11 nose, watery eyes Home Medications ?Medication ?Instructions ?Recorded ?Confirmed ?Last Taken ?Type atorvastatin 20 mg tablet 20 mg PO DAILY 04/15/20 12/09/23 07/18/23 History fluticasone propionate 50 1 spray intranasal DAILY 04/15/20 12/09/23 07/18/23 History mcg/actuation nasal spray,suspension magnesium oxide 400 mg PO DAILY 01/12/09/23 07/18/23 History multivitamin 1 tab PO DAILY 07/14/21 12/09/23 07/18/23 History bupropion HCl 300 mg 24 hr tablet, 300 mg PO QAM 11/01/22 12/09/23 07/18/23 History extended release gabapentin 300 mg capsule 400 mg PO BEDTIME 04/26/23 12/09/23 07/18/23 History gabapentin 400 mg capsule 400 mg PO DAILY 04/26/23 12/09/23 07/18/23 History omeprazole 20 mg capsule,delayed 20 mg PO DAILY 07/19/23 12/09/23 Unknown History release hydroxyzine pamoate 25 mg capsule 25 mg PO DAILY PRN Anxiety 10/19/23 12/09/23 Unknown History sotalol 80 mg tablet 80 mg PO BID 11/16/23 12/09/23 12/09/23 06:45 History Exam Height,Weight and Vital Signs: Height 5 ft 4 in Weight 102.965 kg Narrative Narrative: EKG 10/2023 normal sinus rhythm with low P-wave amplitude consistent with atrial myopathy with nonspecific T-wave changes with normal QTC interval ECHO 10/2022 Conclusions: - The left ventricular systolic function is normal. The visually estimated ejection fraction is between 55-60%. - The left atrium is severely dilated. - There is mild calcification of the aortic valve. - There is moderate mitral annular calcification. - In some images/accompanying EKG, atrial fibrillation rates >100/min. Correlate clinically. Assessment and Plan Assessment Anesthesia Assessment: Chart Reviewed Final Anesthetic Review Family History of Problems with Anesthesia: No History of Problems with Anesthesia: No Documented by User: Kera Bueno MD 12/09/23 08:20 [facility] Past Medical History Medical History Paroxysmal atrial fibrillation History of cardioversion GERD (gastroesophageal reflux disease) Elevated cholesterol HTN (hypertension) Sleep apnea Depression Atrial fibrillation Persistent atrial fibrillation Palpitation Family History Family History Mother CAD (coronary artery disease) Father CAD (coronary artery disease) Surgical History Surgical History History of esophagogastroduodenoscopy (EGD) H/O cardiac radiofrequency ablation H/O colonoscopy History of carpal tunnel surgery Social History Social History Alcohol intake: current Alcohol intake frequency: holidays/special occasions only Patient Tobacco Use Status: Former Tobacco user Use of substances other than those prescribed or required for medical reasons: No Substance Use Type: Marijuana Are you DNR?: No Advance Directives: No Advance Directives Information Provided: Yes Meds Allergies Allergy/AdvReac Type Severity Reaction Status Date / Time duloxetine Allergy Intermediate Rash Verified 12/09/23 07:11 adhesive tape Allergy Mild Rash Verified 12/09/23 07:11 house dust Allergy Mild runny Verified 12/09/23 07:11 nose, watery eyes Home Medications ?Medication ?Instructions ?Recorded ?Confirmed ?Last Taken ?Type atorvastatin 20 mg tablet 20 mg PO DAILY 04/15/20 12/09/23 07/18/23 History fluticasone propionate 50 1 spray intranasal DAILY 04/15/20 12/09/23 07/18/23 History mcg/actuation nasal spray,suspension magnesium oxide 400 mg PO DAILY 07/14/21 12/09/23 07/18/23 History multivitamin 1 tab PO DAILY 07/14/21 12/09/23 07/18/23 History bupropion HCl 300 mg 24 hr tablet, 300 mg PO QAM 11/01/22 12/09/23 07/18/23 History extended release gabapentin 300 mg capsule 400 mg PO BEDTIME 04/26/23 12/09/23 07/18/23 History gabapentin 400 mg capsule 400 mg PO DAILY 04/26/23 12/09/23 07/18/23 History omeprazole 20 mg capsule,delayed 20 mg PO DAILY 07/19/23 12/09/23 Unknown History release hydroxyzine pamoate 25 mg capsule 25 mg PO DAILY PRN Anxiety 10/19/23 12/09/23 Unknown History sotalol 80 mg tablet 80 mg PO BID 11/16/23 12/09/23 12/09/23 06:45 History Exam Airway Mallampati Class: II TM Dist: >3cm Neck ROM: Full Assessment and Plan Assessment Anesthesia Assessment: Anesthesia Plan Discussed Final Anesthetic Review NPO: Yes ASA Class: III Final Preanesthetic Review: No Changes in Pt Med Stat, Meds/Allgs Chart Reviewed, Consent Obtained/Reviewed and Anes Risks/Benef Reviewed Patient Risk: Intermediate Procedure Risk: Low Anesthetic Plan Disposition: Standard PACU
[2023-12-09 07:12] VITALS: BMI 38.6
[2023-12-09 07:26] VITALS: BP 141/75; PULSE 67; RESP 16; TEMP 36.8; O2SAT 98
[2023-12-09] MEDS: Lactated Ringers 1,000 ML 100 ML IVCONT (07:40)
--- NOTE | 2023-12-09 08:28 | MHC.SHP ---
Pre-Procedural Eval Section A - 24 Hr Update-Section A only Date of Service: 12/09/23 Section B - Complete if H&P > 30 days Chief Complaint: Gastric intestinal metaplasia, unspecified Details of Present Illness: see H&P and changes Relevant Family History (Specify if Yes): No Relevant Social History: None Present Medications: see Short Stay Collaborative assessment Medical History: Significant History History of Previous Operations: No relevant previous surgery Allergies: Allergies Allergy/AdvReac Type Severity Reaction Status Date / Time duloxetine Allergy Intermediate Rash Verified 12/09/23 07:11 adhesive tape Allergy Mild Rash Verified 12/09/23 07:11 house dust Allergy Mild runny Verified 12/09/23 07:11 nose, watery eyes Review of Systems Sugical H&P ROS: Negative: Constitution, Cardiovascular, Respiratory, Neurological, Psychiatric, Hem-Onc, Allergic/Immunologic, Gastrointestinal, Genitourinary, Musculoskeletal, Integumentary, Endocrine and Eyes/Ears/Nose/Throat Exam Surgical H&P Exam: Normal: HEENT, Normal: Heart, Normal: Lungs, Normal: Extremities, Normal: Abdomen, Normal: Skin and Normal: Neurological Plan Diagnosis/Plan: Unchanged I have reviewed the history and physical and performed a pertinent physical examination on my patient. No changes have occurred unless specified. Time Spent With Patient Time: Total time managing care of this patient today ____ minutes.
[2023-12-09 08:57] VITALS: BP 110/56; PULSE 69; RESP 16; TEMP 36.6; O2SAT 91
[2023-12-09 09:12] VITALS: BP 121/65; PULSE 65; RESP 18; TEMP 36.6; O2SAT 99
--- NOTE | 2023-12-09 09:39 | OP_ITS ---
DATE OF SERVICE: 12/09/2023 SURGEON: Boaz Franco MD INDICATIONS: Gastric intestinal metaplasia. PREOPERATIVE DIAGNOSIS: POSTOPERATIVE DIAGNOSIS: PROCEDURE PERFORMED: Upper endoscopy with biopsy. ESTIMATED BLOOD LOSS: COMPLICATIONS: ANESTHESIA: Monitored anesthesia care. ASSISTANTS: SPECIMENS: DESCRIPTION OF PROCEDURE: The history and physical performed. The risks and benefits of the procedure were explained to the patient. Informed consent was obtained. The patient was placed in the left lateral decubitus position. The Olympus video gastroscope was introduced into the esophagus, stomach, and duodenum. Examination was performed. The scope was removed. She tolerated the procedure well and was returned to the recovery room in stable condition. FINDINGS: Esophagus: The esophagus was normal. Stomach: The stomach showed no evidence of masses or ulcers or linear streaks of erythema in the antrum consistent with gastritis. Biopsies were obtained from throughout the stomach. Duodenum: The bulb and 2nd portion were normal. IMPRESSION: Gastric intestinal metaplasia. RECOMMENDATIONS: Follow up the biopsy results. MD JOHN Hernandez/MODL / [id number] MTDD
== END 2023-12-09 10:00 | disposition home or self-care (01) ==
PROVIDERS: PCP Family Medicine; Visit Provider Internal Medicine Gastroenterology
PROC: 0DJ08ZZ Inspection of Upper Intestinal Tract, Via Natural or Artificial Opening Endoscopic (ICD-10-PCS; CPT 43235; principal; 2023-12-09 08:20)
DX: K31.A0 Gastric intestinal metaplasia, unspecified (principal); K21.9 Gastro-esophageal reflux disease without esophagitis; I10 Essential (primary) hypertension; I48.91 Unspecified atrial fibrillation; G47.33 Obstructive sleep apnea (adult) (pediatric); Z79.01 Long term (current) use of anticoagulants; Z79.899 Other long term (current) drug therapy; Z88.8 Allergy status to other drugs, medicaments and biological substances
CPT/HCPCS: 43239; 88305; 88313; 88342; J1596; J2250; J2704

== ENCOUNTER 2024-02-09 13:21 | Outpatient (REF) | payer MEDICARE, MEDICAID, SELFPAY ==
[2024-02-09 16:04] LABS: MANUAL DIFF FLAG NO
[2024-02-09 16:13] LABS: Basophils Absolute Auto 0.1 X10*3/uL (0.0-0.2); Basophils Percent Auto 0.9 % (0-2); Eosinophils Absolute Auto 0.4 X10*3/uL (0.0-0.4); Eosinophils Percent Auto 3.7 % (0-4); Hematocrit 37.9 % (37.0-47.0); Hemoglobin 12.1 g/dl (12.0-16.0); Imm Gran Abs Auto 0.03 X10*3/uL (0.00-0.03); Imm Gran Pct Auto 0.3 % (0.0-0.4); Lymphocytes Absolute Auto 2.4 X10*3/uL (1.2-4.9); Lymphocytes Percent Auto 22.1 % (20-40); Mean Corpuscular HGB Conc 31.9 g/dl (31.0-35.0); Mean Corpuscular Hemoglobin 26.8 pg (27.0-33.0); Mean Platelet Volume 9.9 fL (9.4-12.3); Neutrophils Absolute Auto 6.9 x10*3/uL (2.0-8.3); Platelet Count 378 X10*3/uL (160-400); Red Blood Count 4.51 X10*6/uL (4.20-5.50); Red Cell Distribution Width 14.3 % (11.0-16.0); White Blood Count 10.9 X10*3/uL (4.8-10.8)
[2024-02-09 16:25] LABS: Alanine Aminotransferase 18 U/L (0-31); Aspartate Amino Transferase 18 U/L (5-31); Blood Urea Nitrogen 9 mg/dL (9-16); Cholesterol 162 mg/dL (<200); Estimated Glomerular Filt Rate > 60; Glucose Fasting 92 mg/dL (60-99); HDL Cholesterol 46 mg/dL (>40); LDL Cholesterol Calculated 90 mg/dL (<100); Triglycerides 132 mg/dL (<150)
[2024-02-09 16:47] LABS: Estimated Average Glucose 114 mg/dL; Hemoglobin A1c % 5.6 % (<6.0)
== END 2024-02-09 13:22 | disposition home or self-care (01) ==
LOC: HO.HMGCLDS 13:21
PROVIDERS: PCP Family Medicine; Visit Provider Family Medicine
DX: E78.00 Pure hypercholesterolemia, unspecified (principal); R73.9 Hyperglycemia, unspecified; G62.9 Polyneuropathy, unspecified; R06.02 Shortness of breath
CPT/HCPCS: 36415; 80061; 82550; 82565; 82947; 83036; 84450; 84460; 84520; 85025

== ENCOUNTER 2024-03-20 08:40 | Outpatient (REF) | payer MEDICARE, MEDICAID, SELFPAY ==
--- NOTE | ~2024-03-20 | MM_ITS ---
EXAMINATION: MM SCREENING DIGITAL BREAST TOMOSYNTHESIS, BILATERAL CLINICAL INFORMATION: Screening. Asymptomatic. COMPARISON: Mammography: Comparison is made with available priors TECHNIQUE: Digital breast mammography with tomosynthesis is performed in both the craniocaudal and mediolateral oblique views along with computer-aided detection (CAD). FINDINGS: There are scattered areas of fibroglandular density (ACR BI-RADS breast composition Category b). There are no significant masses, abnormal calcifications, or other abnormalities. MM/MM tomosynthesis screening BI IMPRESSION: No mammographic evidence of malignancy. ASSESSMENT: BI-RADS BI-RADS 1 - Negative RECOMMENDATION: Routine annual mammography screening. 1 year F/U This examination should not preclude the clinical evaluation of a suspicious palpable abnormality. This patient's information was entered into a reminder system with a target due date for their next mammogram. Electronically signed by: Anne Marie Sousa DO 03/30/2024 12:35 PM EDT
== END 2024-03-20 08:41 | disposition home or self-care (01) ==
LOC: HO.MAMMO 08:40
PROVIDERS: PCP Family Medicine; Visit Provider Family Medicine
DX: Z12.31 Encounter for screening mammogram for malignant neoplasm of breast (principal)
CPT/HCPCS: 77063; 77067

== ENCOUNTER → 2024-03-20 08:45 | Outpatient (BNV) | payer MEDICARE, MEDICAID, SELFPAY | PROVIDERS: PCP Family Medicine; Visit Provider Internal Medicine | DX: Z12.31 Encounter for screening mammogram for malignant neoplasm of breast (principal) | CPT/HCPCS: 77063; 77067 ==

== ENCOUNTER 2024-05-22 09:06 | Outpatient (AMB) | payer MEDICARE, MEDICAID, SELFPAY ==
[2024-05-22 09:09] VITALS: BP 122/76; PULSE 67; BMI 39.7
--- NOTE | 2024-05-22 09:09 | MHC.OFFVIS ---
Vital Signs 05/22/24 09:09 Height 5 ft 4 in Weight 231 lb 7.766 oz BMI 39.7 BP 122/76 Blood Pressure Location Lt brachial Position Sitting Pulse 67 Intake Visit Reasons: 6 mth f/up w/ ekg Intake Note: 6 month follow-up with ekg feeling good Manager Requirements Required: No Allergies duloxetine Allergy (Intermediate, Verified 12/09/23 07:11) Rash adhesive tape Allergy (Mild, Verified 12/09/23 07:11) Rash house dust Allergy (Mild, Verified 12/09/23 07:11) runny nose, watery eyes Medication List - Last Reconciled 05/22/24 by Yony Irby MD atorvastatin 20 mg PO DAILY bupropion HCl XL 300 mg PO QAM fluticasone propionate 50 mcg/actuation 1 spray intranasal DAILY gabapentin 400 mg PO DAILY hydroxyzine pamoate 25 mg PO DAILY PRN magnesium oxide 400 mg PO DAILY multivitamin 1 tab PO DAILY omeprazole 20 mg PO DAILY rivaroxaban (Xarelto) 20 mg PO QPM sotalol 80 mg PO BID HPI Comments Details: Eufemia comes for follow-up. She has been doing very well from cardiac perspective. She says she has been using her CPAP more frequently but not at all times. She has not had any recurrent episodes of atrial fibrillation or prolonged irregular heartbeat or palpitations. She takes all her medications. She has not had any bleeding issues or neurologic events. No lightheadedness, syncope. She said she has been trying to lose weight but currently not having much options. She is tolerating her medications well. [facility] Medical History Paroxysmal atrial fibrillation History of cardioversion GERD (gastroesophageal reflux disease) Elevated cholesterol HTN (hypertension) Sleep apnea Depression Atrial fibrillation Persistent atrial fibrillation Palpitation Surgical History History of esophagogastroduodenoscopy (EGD) H/O cardiac radiofrequency ablation H/O colonoscopy History of carpal tunnel surgery Family History Mother CAD (coronary artery disease) Father CAD (coronary artery disease) Social History Alcohol intake: current Alcohol intake frequency: holidays/special occasions only Patient Tobacco Use Status: Former Tobacco user Substance Use Type: Marijuana Review of Systems Const Denies chills, Denies fatigue, Denies fever(s), Denies frequent falls, Denies weakness, Denies weight gain and Denies weight loss ENT Denies dizziness Card Denies chest pain, Denies leg edema, Denies lightheadedness, Denies palpitations, Denies dyspnea, Denies dyspnea on exertion, Denies orthopnea and Denies other (loss of consciousness) Resp Denies cough, Denies dyspnea and Denies dyspnea on exertion GI Denies hematochezia and Denies change in stool character Musc Denies abnormal gait, Denies muscle weakness, Denies numbness, Denies radiating pain into limb and Denies tingling Neuro Denies Abnormal speech present, Denies abnormal gait, Denies dizziness, Denies frequent falls, Denies numbness, Denies tingling and Denies weakness Endo Denies fatigue and Denies palpitations Physical Exam Vital Signs: Last Vital Signs Pulse 67 05/22/24 09:09 BP 122/76 05/22/24 09:09 BMI result Body Mass Index 39.7 Const General: cooperative, comfortable, no acute distress, alert and awake Nutritional Appearance: obese Orientation/consciousness: patient oriented x3 Limitations: no limitations HEENT Head: Yes normocephalic and Yes atraumatic Neck Neck: Yes trachea midline, Yes supple and Yes no JVD Resp Effort & Inspection: normal respiratory effort Auscultation: clear to auscultation bilaterally Cardio Jugular venous distension: no JVD Rate: regular rate Rhythm: regular rhythm Heart sounds: S1 normal heart sound present, S2 normal heart sound present, no click, no gallops, no murmurs and no rubs GI Auscultation: normal bowel sounds Skin General skin exam: no rashes or lesions noted Neuro General: patient oriented x3 and no focal motor deficits Speech: No Abnormal speech present Extrem General: Yes no clubbing, cyanosis or edema Office Procedures EKG Details: EKG shows normal sinus rhythm normal EKG with low-amplitude P waves suggestive atrial myopathy [id number], Complete Assessment & Plan Assessment & Plan (1) Paroxysmal atrial fibrillation: Code(s): I48.0 - Paroxysmal atrial fibrillation Category: Medical Plan: Paroxysmal atrial fibrillation, highly symptomatic due to loss of AV synchrony. Doing extremely well with rhythm control approach. Importance of rhythm control approach was discussed. Continue current antiarrhythmic drug therapy with sotalol. Continue avoid stimulants. Advised to monitor for symptoms. Continue risk factor modification including continue CPAP treatment for a severe sleep apnea as well as continued participate in weight loss program. We discussed various strategies. She will try to inculcate weight watchers into her regimen. We discussed about newer therapies for weight loss as well. She says she knows about it and will reach out if she needs help. Continue aggressive blood pressure control. Encouraged to participate in regular physical activity. Continue full oral anticoagulation with Xarelto 20 mg. Semi annual renal function test should be pursued (2) Hypertension: Code(s): I10 - Essential (primary) hypertension Category: Medical Plan: Hypertension which is currently well optimized advised to monitor blood pressure and maintain a log. Goal blood pressure less than 130/84. Continue current therapy. Continue CPAP therapy. Continue heart healthy lifestyle with regular physical activity. Will follow up in the clinic in 6 months time after an echocardiogram. Thank you for allowing me to partake in the care Orders: Orders Complete Blood Count no Diff Today I48.0 - Paroxysmal atrial fibrillation Basic Metabolic Panel Today I48.0 - Paroxysmal atrial fibrillation CA echo transthoracic complete 6 Months I48.0 - Paroxysmal atrial fibrillation Coding Level of Care Code Est Pt Level 4 (41769) Complex EM visit Add On G2211 Diagnoses Paroxysmal atrial fibrillation I48.0 Hypertension I10 CPT Codes EKG - CPT: 37224-[id number], Complete ([id number])
== END 2024-05-22 09:38 | disposition home or self-care (01) ==
PROVIDERS: PCP Family Medicine; Visit Provider Internal Medicine Cardiovascular Disease
DX: I48.0 Paroxysmal atrial fibrillation (principal); I10 Essential (primary) hypertension
CPT/HCPCS: 93010; 99214; G2211

== ENCOUNTER 2024-05-22 09:06 | Outpatient (REF) | payer MEDICARE, MEDICAID, SELFPAY ==
[2024-05-22 10:49] LABS: Hematocrit 39.6 % (37.0-47.0); Hemoglobin 12.7 g/dl (12.0-16.0); Mean Corpuscular HGB Conc 32.1 g/dl (31.0-35.0); Mean Corpuscular Hemoglobin 27.3 pg (27.0-33.0); Mean Platelet Volume 9.6 fL (9.4-12.3); Platelet Count 381 X10*3/uL (160-400); Red Blood Count 4.66 X10*6/uL (4.20-5.50); Red Cell Distribution Width 14.6 % (11.0-16.0); White Blood Count 9.9 X10*3/uL (4.8-10.8)
[2024-05-22 11:07] LABS: Anion Gap 13 (12-20); Blood Urea Nitrogen 8 mg/dL (9-16); Calcium 9.1 mg/dL (8.4-10.2); Carbon Dioxide 27 mmol/L (22-29); Chloride 104 mmol/L (96-108); Estimated Glomerular Filt Rate > 60; Glucose Random 101 mg/dL (60-115); Potassium 3.8 mmol/L (3.3-5.1); Sodium 140 mmol/L (135-145)
== END 2024-05-22 09:07 | disposition home or self-care (01) ==
LOC: HO.LAB 09:06
PROVIDERS: PCP Family Medicine; Visit Provider Internal Medicine Cardiovascular Disease
DX: I48.0 Paroxysmal atrial fibrillation (principal); I10 Essential (primary) hypertension
CPT/HCPCS: 36415; 80048; 85027; 93005; 99212

== ENCOUNTER 2024-10-18 09:54 | Outpatient (AMB) | payer MEDICARE, MEDICAID, SELFPAY ==
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
[2024-10-18 10:06] VITALS: BP 120/70; PULSE 65; O2SAT 97; BMI 40.7
--- OUTSIDE RECORDS SUMMARY | 2024-10-18 11:09 | XMS_ITS ---
Author Organization [facility] Address [address] [facility] [address] [place] [phone] Care Team Providers Care Head Start Teacher Name Role Phone Dung WOODS, Vance Primary Care Provider Unavailab Boaz Escalante Jr Unavailable REASON FOR VISIT gastric intestinal metaplasia Encounters Encounter Location Date Provider Diagnosis [facility] Outpatient [address] [place] [phone] 12/09/2023 Boaz Franco Jr Gastric intestinal metaplasia K31.A0 Assessments Encounter Date Diagnosis (ICD Code) Assessment Notes Treatment Notes Treatment Clinical Notes Section Notes 12/09/2023 Gastric intestinal metaplasia (ICD-10 - K31.A0) Plan Of Treatment Next Appt Details Provider Name:Boaz rasheed Jr, 12/12/2024 09:20:00 AM, [address] [place] [address], [address] [facility], [place], [address], Progress Notes * DEONTE HASSANOB:0 1960 (63 yo F)Acc No.[id number]:12/09/2023 EGD/MAC Patient:?CORBIN HASSAN Provider:?Boaz Franco MD :1960???Age:62 Y???Sex:Female D ate:12/09/2023 Address:[address] [place], [place] [id number] Pcp:Vance Razo MD Subjective: * Chief Complaints: * ???1. Gastric intestinal met aplasia. * Medical History:? Objective: * Vitals:? Assessment: * Assessment: 1.?Gastric intestinal metapl aimee - K31.A0 (Primary)??? Plan: * Treatment: * Procedure Codes:?68416 UPPER GI ENDOSCOPY, BIOPSY * * The named appointment provid er may or may not be the originator of this progress note, and it is not deemed complete until electronically signed by the appointment provider. Sign off status: Pending * Provider:?Boaz Franco MD Date:?0 12/09/2023 Generated for Earle rivera/Susu/Dougsmitting on:?10/18/2024 11:09 AM EDT
--- OUTSIDE RECORDS SUMMARY | 2024-10-18 11:10 | XMS_ITS ---
Author Organization [facility] Address [address] [place] [phone] Care Team Providers Care Loan Examiner Name Role Phone Vance Razo MD Primary Care Provider Unavailab vidal Franco Jr, Boaz Unavailable REASON FOR VISIT labs Encounters Encounter Location Date Provider Diagnosis [facility] [address] [place] [phone] 07/28/2023 Boaz Franco Jr Plan Of Treatment Next Appt Details Provider Name:Boaz rasheed Jr, 12/12/2024 09:20:00 AM, [address], [address], [place], [address], Progress Notes * DEONTE HASSANOB:0 1960 (62 yo F)Acc No.[id number]:07/28/2023 Patient:?CORBIN HASSAN :1960???Age:62 Y???Sex:Female Address:[address] [place] [address], [address] * true * Date:? Generated for Printi miguel/Susu/eTransmitting on:?10/18/2024 11:09 AM EDT
--- OUTSIDE RECORDS SUMMARY | 2024-10-18 11:10 | XMS_ITS | Patient Health Record ---
Author Organization [facility] Address [address] [place] [phone] Care Team Providers Care Administrative Program Specialist Name Role Phone Dung WOODS, Vance Primary Care Provider Unavailab Boaz Escalante Jr Unavailable Allergies Allergen (clinical drug ingredient) Drug/Non Drug Allergy documented on EMR Reaction Allergy Type Onset Date Status cats,dust (uncoded) Unknown Allergy Active Results Component Value Reference Range Notes Pathology Reviewed date:12/13/2023 03:45:54 PM Interpretation: Performing Lab:[facility], [address] [place] [phone] Notes/Report: Name: Emily Castellano Age/Sex: 62/F : 1960 Unit#: [id number] Attend Dr: Boaz Franco MD Re12/09/23 Status : [facility] Location: [facility] Disch: SPEC : [id number] RECD : 12/09/23 STATUS: FESTUS GRCAIA NUM: [id number] J CARLOS: 12/09/23 [facility] DR: Boaz Franco MD ENTERED: 12/09/23 SP TYPE: Surgical OTHR DR: Vance Razo MD ORDERED: HE Stain/18 , Gross Micro L4/6, IHC/6, Special st. 2/, H. pylori/6, AB/PAS/6 Diagnosis A. Stomach, antrum, greater curvature, biopsy: Gastric antral mucosa within normal limits; negative for Helicobacter pylori, intestinal metaplasia and dysplasia. B. Stomach, antrum, lesser curvature, biopsy: Gastric antral mucosa with mild reactive gastropathy; negativ e for Helicobacter pylori, intestinal metaplasia and dysplasia. C. Stomach, antrum n odule, biopsy: Gastric antral mucosa with reactive gastropathy; negative for Helicob acter pylori, intestinal metaplasia and dysplasia. D. Stomach, angulari s, biopsy: Gastric antral mucosa within normal limits; negative for Helicobacter pylori, intestinal metaplasia and dysplasia. E. Stomach, body, gr eater curvature, biopsy: Gastric body mucosa with PPI effect; negative for Helicob acter pylori, intestinal metaplasia and dysplasia. F. Stomach, body, le sser curvature, biopsy: Gastric body mucosa with PPI effect; negative for Helicob acter pylori, intestinal metaplasia and dysplasia. Clinical History Gastric intestinal m etaplasia, unspecified Microscopic Description A-F. Microscopic sec tions examined. No metaplastic changes are seen, supported by AB/PAS stains (A-F); no Hel icobacter organisms are seen, supported by H. pylori immunostain (A-F). Material Received A. Antrum greater curvature B. Antrum lesser curvature C. Antrum nodule D. Angularis E. Body greater curvature F. Body lesser curvature Gross Description Received in 6 parts. A. Received in forma thaddeus labeled ?antrum, greater curvature? are 2 fragments of translucent forbes white soft tissu e measuring 0.3 and 0.5 cm in greatest dimension which are wrapped in CONTINUED ON NEXT PAGE Name: Emily Castellano Age/Sex: 62/F : 1960 Unit#: [id number] Attend Dr: Boaz Franco MD Re12/09/23 Status : [facility] Location: [facility] Disch: SPEC : [id number] RECD : 12/09/23 STATUS: FESTUS FONGRitika NUM: [id number] J CARLOS: 12/09/[address] [facility] [address]: Boaz Franco MD ENTERED: 12/09/23- SP TYPE: Surgical OTHR DR: Vance Razo MD ORDERED: HE Stain/18 , Gross Micro L4/6, IHC/6, Special st. 2/6, H. pylori/6, AB/PAS/6 Gross Description (Continued) lens paper and entir kartik submitted for microscopic examination, 2 pieces in cassette A. B. Received in forma thaddeus labeled ?antrum, lesser curvature? is a fragment of pink-forbes soft tissue measuring 0.3 cm in greatest dimension which is wrapped in lens paper and entirely submitted for micros copic examination, 1 piece in cassette B. C. Received in forma thaddeus labeled ?antrum nodule? is a fragment of pink-forbes soft tissue measuring 0.3 cm in greatest dimension which is wrapped in lens paper and entirely submitted for microscopic exam ination, 1 piece in cassette C. D. Received in forma thaddeus labeled ?angularis? are 2 fragments of translucent forbes white tissue measuring 0.4 and 0. 7 cm in greatest dimension which are wrapped in lens paper and entirely submitted for micros copic examination, 2 pieces in cassette D. E. Received in forma thaddeus labeled ?body, greater curvature? are 3 fragments of translucent forbes white soft tissue me asuring 0.3-0.4 cm in greatest dimension which are wrapped in lens paper and entirely submitt ed for microscopic examination, 3 pieces in cassette E. F. Received in forma thaddeus labeled ?body, lesser curvature? are 2 fragments of forbes-white soft tissue measuring 0.4 and 0.5 cm in greatest dimension which are wrapped in lens paper and entirely submitted f or microscopic examination, 2 pieces in cassette F. smc Special stains order ed and performed: AB/PAS on A-F; immunostain for H pylori on A-F. Copies To: Boaz Franco MD [address] [place] [address] [address] [place] [id number] Vance Razo MD [address] [place] [address] [address] [place] [id number] Signed (si gnature on file) Tamara Morejon MD 12/13/23 1013 END OF REPORT Reason For Referral No Information Medications Medication SIG (Take, Route, Frequency, Duration) Notes Start Date End Date Status MiraLax (colon prep) 17 GM/SCOOP mixed with Gatorade or Crystal Light Orally begin at 5:00 p.m. the day before the procedure for 1 day 06/08/2023 Active ZyrTEC 20mg Active Lipitor 20mg Active PriLOSEC 20mg Active Xarelto 20 MG 1 tablet with food O rally Once a day for 30 day(s) Active One A Day Women 50 Plus - as directed Orally Active buPROPion HCl ER (XL) 450 MG 1 tablet in the morning Orally Once a day for 30 day(s) Active Magnesium 27 500 (27 Mg) MG 1 tablet Ora lly Once a day for 30 day(s) Active Metoprolol Succinate 100 MG as directed Orally Active Gabapentin 300 MG 1 capsule Orally Onc e a day for 30 day(s) Active Probiotic Active Fluticasone Propionate (Inhal) 50 MCG/BLIST 1 puff Inhalation Twice a day Active Vitamin D Active Zinc Active Immunizations Vaccine Route Administration Date Status Comme nts Influenza Unknown 06/08/2023 Refused Problems Problem Type SNOMED Code ICD Code Onset Dates Problem Status W/U Status Risk Notes Problem 986767754 Colon cancer screening (Z12.11) Active confirmed Problem 545742154 [facility] (current) use of anticoagulants (Z79.01) Active confirmed Problem Gastroesophageal reflux disease (485147002) Gastroesophageal reflux disease (K21.9) Active confirmed Problem 098432208 Gastroesophageal reflux disease, unspecified whether esophagitis present (K21.9) Active confirmed Encounters Encounter Location Date Provider Diagnosis [facility] Outpatient [address] [place] [phone] 12/09/2023 Boaz Franco Jr Gastric intestinal metaplasia K31.A0 [facility] [address] [place] [address] 12/13/2023 Boaz Franco Jr Assessments Encounter Date Diagnosis (ICD Code) Assessment Notes Treatment Notes Treatment Clinical Notes Section Notes 12/09/2023 Gastric intestinal metaplasia (ICD-10 - K31.A0) Plan Of Treatment Future Test Test Name Order Date COLONOSCOPY 11/29/2012 UPPER GI ENDOSCOPY 06/08/2023 COLONOSCOPY 06/08/2023 Next Appt Details Provider Name:Boaz rasheed Jr, 12/12/2024 09:20:00 AM, [address] [place] [address], [address], [place], [address], Insurance Providers Payer Name Payer Address Payer Phone Subscriber Number Group Number Insured Name Patient Relationship to Insured Coverage Start Date Coverage End Date MEDICARE OF [place] [address] [place] [id number] [phone] [id number] EMILY NEWBY Self - patient is the insured MEDICAID OF [facility] [address] [place] [address] [id number] EMILY NEWBY Self - patient is the insured Medical (General) History Medical History History ICD Code Depression Degenerative joint disease Gastroesophageal reflux disease Back pain/sciatica Atrial fibrillation status post cardiove rsion, scheduled for ablation 08/20 Obstructive sleep apnea Hyperlipidemia Hypertension Colonoscopy 03/09, mild ileitis, hyperpla stic polyp, ten-year followup Surgical History Surgery Date(Month/Year) tonsillectomy Bilateral carpal, repair Dental extractions
--- OUTSIDE RECORDS SUMMARY | 2024-10-18 11:10 | XMS_ITS ---
Author Organization [facility] Address [address] [place] [phone] Care Team Providers Care Plant Biology Professor Name Role Phone Vance Razo MD Primary Care Provider Unavailab vidal Franco Jr, Boaz Unavailable REASON FOR VISIT pathology Encounters Encounter Location Date Provider Diagnosis [facility] [address] [place] [phone] 12/13/2023 Boaz Franco Jr Plan Of Treatment Next Appt Details Provider Name:Boaz rasheed Jr, 12/12/2024 09:20:00 AM, [address], [address], [place], [address], Progress Notes * DEONTE HASSANOB:0 1960 (62 yo F)Acc No.[id number]:12/13/2023 Patient:?CORBIN HASSAN :1960???Age:62 Y???Sex:Female Address:[address] [place] [address], [address] * true * Date:? Generated for Printi miguel/Susu/eTransmitting on:?10/18/2024 11:10 AM EDT
== END 2024-10-18 12:02 | disposition home or self-care (01) ==
LOC: HO.HSMS 09:54
PROVIDERS: PCP Family Medicine; Visit Provider Nurse Practitioner Family
DX: G47.33 Obstructive sleep apnea (adult) (pediatric) (principal); G47.39 Other sleep apnea; H93.13 Tinnitus, bilateral; R29.818 Other symptoms and signs involving the nervous system; R29.6 Repeated falls
CPT/HCPCS: 99214

== ENCOUNTER → 2024-10-18 09:54 | Outpatient (BNVA) | payer MEDICARE, MEDICAID, SELFPAY | PROVIDERS: PCP Family Medicine; Visit Provider Nurse Practitioner Family | DX: G47.33 Obstructive sleep apnea (adult) (pediatric) (principal); G47.39 Other sleep apnea; H93.13 Tinnitus, bilateral; R29.818 Other symptoms and signs involving the nervous system; R29.6 Repeated falls; Z99.89 Dependence on other enabling machines and devices | CPT/HCPCS: 99212 ==

== ENCOUNTER → 2024-10-29 13:02 | Outpatient (REF) | payer MEDICARE, MEDICAID, SELFPAY ==
--- NOTE | 2024-10-29 13:05 | CA_ITS ---
Transthoracic Echocardiogram Patient (Last, First, Middle): Eufemia Castellano, Gender: Female Date of : 1960 Age: 63 Procedure Date: 10/29/2024 Procedure Type: Transthoracic Echocardiogram Location: OP Height: 165. cm Weight: 106.6 kg BSA: 2.12 m2 Heart Rate: 64 bpm BP: 148 / 90 mmHg Race Starter: UNIQUE Referring MD: Yony Irby MD Symptoms: I48.0 - Paroxysmal atrial fibrillation Study Quality: Fair ECG Rhythm: Sinus Conclusions: - The left ventricular systolic function is normal. The calculated ejection fraction is 61% by biplane method. - There is severe mitral annular calcification. Findings Left Ventricle Normal left ventricular cavity size. The left ventricular systolic function is normal. The calculated ejection fraction is 61% by biplane method. There is no evidence of regional wall motion abnormalities. Diastolic function is normal for age. There is mild septal asymmetric hypertrophy. Right Ventricle Normal right ventricular cavity size and systolic function. Atria The left atrium is mildly dilated. The right atrium is normal in size. Aortic Valve There is a normal trileaflet aortic valve. There is mild calcification of the aortic valve. There is no aortic valve stenosis. There is no aortic valve regurgitation. Mitral Valve There is mild anterior mitral leaflet thickening. There is severe mitral annular calcification. There is trace mitral valve regurgitation. There is no mitral valve stenosis. Pulmonic Valve The pulmonic valve is likely normal. Tricuspid Valve There is trace tricuspid valve regurgitation. There is no evidence of pulmonary hypertension. Great Vessels The asc aorta and aortic arch are normal in size. Venous The inferior vena cava is normal in size and collapses greater than 50% with inspiration. Pericardium/Pleural There is no evidence of pericardial effusion. Prior Study Comparison No significant change compared to prior study dated: 11/02/2022. Measurements 2D Linear Measurements IVSd: 0.82 0.6-0.9/0.6-1.0 cm LVIDd: 4.60 3.9-5.3/4.2-5.9 cm LVIDd Index: 2.17 2.4-3.2/2.2-3.1 cm/m2 LVIDs: 2.42 2.0-3.6 cm LVPWd: 1.12 0.7-1.1 cm LA Diam: 4.00 2.7-3.8/3.0-4.0 cm LAIDs Index: 1.89 1.5-2.3 cm/m2 LV Mass: 189.95 67-162/88-224 g LV Mass Index: 89.60 43-95/49-115 g/m2 LVOT Diam: 1.90 3.0+(-)1.3 cm 2D Systolic Function EF 4C: 56.60 >55% EF 2C: 65.20 >55% EF BiP: 60.70 >55% Mitral Valve MV Pk E: 1.10 MV PK A: 0.69 MV Decel Time: 143.00 E/A: 1.60 E'Lateral: 8.49 E'Medial: 7.51 E/E' Med: 14.60 E/E' Lat: 13.00 PHT: 42.00 MVA PHT: 5.24 Decel [place]: 7.71 Aortic Valve AoV Pk Beau: 1.66 AoV Mn Beau: 1.16 AoV VTI: 0.38 AoV Pk Grad: 11.00 Aov Mn Grad: 6.00 PAUL Cont.VTI: 1.86 LVOT LVOT Pk Beau: 0.98 LVOT Mn Beau: 0.75 LVOT VTI: 0.25 LVOT Pk Grad: 4.00 LVOT Mn Grad: 2.00 LVOT Diam: 1.90 LVOT Area: 2.84 Diastolic Function MV Pk E: 1.10 MV Pk A: 0.69 E/A: 1.60 E'Medial: 7.51 E/E' Med: 14.60 E' Laterial: 8.49 E/E' Lat: 13.00 Right Ventricle TAPSE (mm): 27.70 TVS' Beau: 15.10 Tricuspid Valve RA Press: 3.00 Great Vessels Aorta Sinus of Valsalva: 3.20 2.0-3.5 cm Ao Asc: 3.10 2.1-3.4 cm Ao Arch: 3.00 Pulmonary Valve PV Pk Beau: 1.06 Peak PV Grad: 4.00 Updated in Other Vendor System with Status of Final James Murillo MD electronically signed on 10/30/2024 4:31:51 PM with status of Final
--- OUTSIDE RECORDS SUMMARY | 2024-10-29 14:22 | XMS_ITS ---
Author Organization [facility] Address [address] [place] [phone] Care Team Providers Care Digital Coordinator Name Role Phone Vance Razo MD Primary Care Provider Unavailab vidal Franco Jr, Boaz Unavailable REASON FOR VISIT pathology Encounters Encounter Location Date Provider Diagnosis [facility] [address] [place] [phone] 12/13/2023 Boaz Franco Jr Plan Of Treatment Next Appt Details Provider Name:Boaz rasheed Jr, 12/12/2024 09:20:00 AM, [address], [address], [place], [address], Progress Notes * DEONTE HASSANOB:0 1960 (62 yo F)Acc No.[id number]:12/13/2023 Patient:?CORBIN HASSAN :1960???Age:62 Y???Sex:Female Address:[address] [place] [address], [address] * true * Date:? Generated for Printi miguel/Susu/eTransmitting on:?10/29/2024 02:22 PM EDT
--- OUTSIDE RECORDS SUMMARY | 2024-10-29 14:22 | XMS_ITS ---
Author Organization [facility] Address [address] [facility] [address] [place] [phone] Care Team Providers Care Car Park Attendant Name Role Phone Dung WOODS, Vance Primary Care Provider Unavailab Boaz Escalante Jr Unavailable REASON FOR VISIT gastric intestinal metaplasia Encounters Encounter Location Date Provider Diagnosis [facility] Outpatient [address] [place] [phone] 12/09/2023 Boaz Franco Jr Gastric intestinal metaplasia K31.A0 Assessments Encounter Date Diagnosis (ICD Code) Assessment Notes Treatment Notes Treatment Clinical Notes Section Notes 12/09/2023 Gastric intestinal metaplasia (ICD-10 - K31.A0) Plan Of Treatment Next Appt Details Provider Name:Boaz rasheed Jr, 12/12/2024 09:20:00 AM, [address] [place] [address], Suite [facility], [place], [address], Progress Notes * DEONTE HASSANOB:0 1960 (63 yo F)Acc No.[id number]:12/09/2023 EGD/MAC Patient:?CORBIN HASSAN Provider:?Boaz Franco MD :1960???Age:62 Y???Sex:Female D ate:12/09/2023 Address:[address] [place], [place] [phone] Pcp:Vance Razo MD Subjective: * Chief Complaints: * ???1. Gastric intestinal met aplasia. * Medical History:? Objective: * Vitals:? Assessment: * Assessment: 1.?Gastric intestinal metapl aimee - K31.A0 (Primary)??? Plan: * Treatment: * Procedure Codes:?90088 UPPER GI ENDOSCOPY, BIOPSY * * The named appointment provid er may or may not be the originator of this progress note, and it is not deemed complete until electronically signed by the appointment provider. Sign off status: Pending * Provider:?Boaz Franco MD Date:?0 12/09/2023 Generated for Earle rivera/Susu/Dougsmitting on:?10/29/2024 02:22 PM EDT
== END ==
LOC: HO.CARD 13:02
PROVIDERS: PCP Family Medicine; Visit Provider Internal Medicine Cardiovascular Disease
DX: I48.0 Paroxysmal atrial fibrillation (principal)
CPT/HCPCS: 93306

== ENCOUNTER → 2024-10-29 13:05 | Outpatient (BNV) | payer MEDICARE, MEDICAID, SELFPAY | PROVIDERS: PCP Family Medicine; Visit Provider Internal Medicine | DX: I42.2 Other hypertrophic cardiomyopathy (principal); I34.81 Nonrheumatic mitral (valve) annulus calcification; I35.8 Other nonrheumatic aortic valve disorders | CPT/HCPCS: 93306 ==

== ENCOUNTER 2024-11-03 13:42 | Outpatient (REF) | payer MEDICARE, MEDICAID, SELFPAY ==
--- NOTE | ~2024-11-03 | MR_ITS ---
EXAMINATION: MR BRAIN IAC PROTOCOL WITHOUT AND WITH CONTRAST CLINICAL INFORMATION: Tinnitus, bilaterally. COMPARISON: None available. TECHNIQUE: Multiplanar, multisequence MRI of the brain was obtained before and after the intravenous administration of 10 mL gadolinium based without reported immediate complications. FINDINGS: No signal abnormality or enhancing lesion within the cochlear or vestibular components of the 8th cranial nerves at either side. Right anterior inferior cerebellar artery is type I. Left anterior inferior cerebellar artery is type II. No restricted diffusion. No acute intracranial hemorrhage, mass effect, midline shift, hydrocephalus or herniation. No abnormal enhancement within the intra-axial or the extra-axial compartment of the cranium. The main cerebral venous sinuses are patent. No high riding internal jugular bulb. MR/MR head/brain wo/w con IMPRESSION: No vestibular schwannoma. Electronically signed by: Tj Hui MD 11/05/2024 09:11 AM EDT
--- OUTSIDE RECORDS SUMMARY | 2024-11-03 13:50 | XMS_ITS | Patient Health Record ---
Author Organization [facility] Address [address] [place] [address] Care Team Providers Care Engineer Second Assistant Name Role Phone Dung WOODS, Vance Primary Care Provider Unavailab Boaz Escalante Jr Unavailable [phone] Allergies Allergen (clinical drug ingredient) Drug/Non Drug Allergy documented on EMR Reaction Allergy Type Onset Date Status cats,dust (uncoded) Unknown Allergy Active Results Component Value Reference Range Notes Pathology Reviewed date:12/13/2023 03:45:54 PM Interpretation: Performing Lab:[facility], [address] [place] [phone] Notes/Report: Name: Emily Castellano Age/Sex: 62/F : 1960 Unit#: [id number] Attend Dr: Boaz Franco MD Re12/09/23 Status : [facility] Location: [facility] Disch: SPEC : [id number] RECD : 12/09/23 STATUS: FESTUS GRACIA NUM: [id number] J CARLOS: 12/09/23 [facility] DR: Boaz Franco MD ENTERED: 12/09/23 SP [...] Emily Castellano Age/Sex: 62/F : 1960 Unit#: [id number] Attend Dr: Boaz Franco MD Re12/09/23 Status : [facility] Location: [facility] Disch: SPEC : [id number] RECD : 12/09/23 STATUS: FESTUS FOGNRitika NUM: [id number] J CARLOS: 12/09/23 [facility] DR: Boaz Franco MD ENTERED: 12/09/23- SP [...] on A-F. Copies To: Boaz Franco MD [address] [place] [address] [address] [place] [id number] Vance Razo MD [address] [place] [address] [address] [place] [id number] Signed (si gnature on file) Tamara Morejon [...] Problem Status W/U Status Risk Notes Problem 483086880 Colon cancer screening (Z12.11) Active confirmed Problem 098728984 emt intermediate (curre nt) use of anticoagulants (Z79.01) Active confirmed Problem Gastroesophageal reflux disease (K21.9) Active confirmed Problem 744641596 Gastroesophageal reflux disease, unspecified whether esophagitis present (K21.9) Active confirmed Encounters Encounter Location Date Provider Diagnosis [facility] Outpatient [address] [place], [place] [phone] 12/09/2023 Boaz Franco Jr Gastric intestinal metaplasia K31.A0 [facility] [address] [place] [phone] 12/13/2023 Boaz Franco Jr Assessments Encounter Date Diagnosis (ICD Code) Assessment Notes Treatment Notes Treatment Clinical Notes Section Notes 12/09/2023 Gastric intestinal metaplasia (ICD-10 - K31.A0) Plan Of Treatment Future Test Test Name Order Date COLONOSCOPY 11/29/2012 UPPER GI ENDOSCOPY 06/08/2023 COLONOSCOPY 06/08/2023 Next Appt Details Provider Name:Boaz rasheed Jr, 12/12/2024 09:20:00 AM, [address] [place] [address], [address], [place], [address], Insurance Providers Payer Name Payer Address Payer Phone Subscriber Number Group Number Insured Name Patient Relationship to Insured Coverage Start Date Coverage End Date MEDICARE OF [place] [address] [place] [address] [phone] [id number] EMILY NEWBY Self - patient is the insured MEDICAID [facility] [address] [place] [phone] [id number] EMILY NEWBY Self - patient is the [...]
--- OUTSIDE RECORDS SUMMARY | 2024-11-03 13:51 | XMS_ITS ---
Author Organization [facility] Address [address] [place] [phone] Care Team Providers Care Steel Turner Name Role Phone Vance Razo MD Primary Care Provider Unavailab vidal Franco Jr, Boaz Unavailable REASON FOR VISIT pathology Encounters Encounter Location Date Provider Diagnosis [facility] [address] [place] [phone] 12/13/2023 Boaz Franco Jr Plan Of Treatment Next Appt Details Provider Name:Boaz rasheed Jr, 12/12/2024 09:20:00 AM, [address], [address], [place], [address], Progress Notes * DEONTE HASSANOB:0 1960 (62 yo F)Acc No.[id number]:12/13/2023 Patient:?CORBIN HASSAN :1960???Age:62 Y???Sex:Female Address:[address] [place] [address], [address] * true * Date:? Generated for Printi miguel/Susu/eTransmitting on:?11/03/2024 01:50 PM EDT
--- OUTSIDE RECORDS SUMMARY | 2024-11-03 13:51 | XMS_ITS ---
Author Organization [facility] Address [address] [place] [address] Care Team Providers Care Demand Planning Analyst Name Role Phone Vance Razo MD Primary Care Provider Unavailab vidal Franco Jr, Boaz Unavailable REASON FOR VISIT labs Encounters Encounter Location Date Provider Diagnosis [facility] [address] [place] [phone] 07/28/2023 Boaz Franco Jr Plan Of Treatment Next Appt Details Provider Name:Boaz rasheed Jr, 12/12/2024 09:20:00 AM, [address], [address], [place], [address], Progress Notes * EDONTE HASSANOB:0 1960 (62 yo F)Acc No.[id number]:07/28/2023 Patient:?CORBIN HASSAN :1960???Age:62 Y???Sex:Female Address:[address] [place] [address], [address] * true * Date:? Generated for Printi miguel/Susu/eTransmitting on:?11/03/2024 01:50 PM EDT
[2024-11-03] MEDS: gadobutroL 10 ML VIAL IVPUSH (14:25)
== END 2024-11-03 13:43 | disposition home or self-care (01) ==
LOC: HO.MRI 13:42
PROVIDERS: PCP Family Medicine; Visit Provider Nurse Practitioner Family
DX: H93.13 Tinnitus, bilateral (principal); R29.818 Other symptoms and signs involving the nervous system; R29.6 Repeated falls; H91.3 Deaf nonspeaking, not elsewhere classified
CPT/HCPCS: 70553; A9585

== ENCOUNTER → 2024-11-03 13:42 | Outpatient (BNV) | payer MEDICARE, MEDICAID, SELFPAY | PROVIDERS: PCP Family Medicine; Visit Provider Radiology Diagnostic Radiology | DX: H93.13 Tinnitus, bilateral (principal) | CPT/HCPCS: 70553 ==

== ENCOUNTER 2024-11-12 14:34 | Outpatient (REF) | payer MEDICARE, MEDICAID, SELFPAY ==
[2024-11-12 17:41] LABS: Anion Gap 12 (12-20); Blood Urea Nitrogen 9 mg/dL (9-16); Carbon Dioxide 28 mmol/L (22-29); Chloride 106 mmol/L (96-108); Estimated Glomerular Filt Rate > 60; Glucose Random 80 mg/dL (60-115); Potassium 3.7 mmol/L (3.3-5.1); Sodium 142 mmol/L (135-145)
== END 2024-11-12 14:35 | disposition home or self-care (01) ==
LOC: HO.LAB 14:34
PROVIDERS: PCP Family Medicine; Visit Provider Internal Medicine Cardiovascular Disease
DX: I48.0 Paroxysmal atrial fibrillation (principal); I10 Essential (primary) hypertension; E66.01 Morbid (severe) obesity due to excess calories; Z99.89 Dependence on other enabling machines and devices; Z68.41 Body mass index [BMI] 40.0-44.9, adult
CPT/HCPCS: 36415; 80048; 93005; 99212

== ENCOUNTER 2024-11-12 14:34 | Outpatient (AMB) | payer MEDICARE, MEDICAID, SELFPAY ==
[2024-11-12 14:36] VITALS: BP 120/80; PULSE 66; BMI 41.2
--- NOTE | 2024-11-12 14:36 | A.OFFVIS_ITS ---
Vital Signs 11/12/24 14:36 Height 5 ft 4 in Weight 240 lb 4.862 oz BMI 41.2 BP 120/80 Blood Pressure Location Lt brachial Position Sitting Pulse 66 Intake Visit Reasons: 6m follow up/echo Intake Note: 6 month follow-up with ekg feeling good Procurement Inspector Required: No Allergies duloxetine Allergy (Intermediate, Verified 10/18/24 10:13) Rash adhesive tape Allergy (Mild, Verified 10/18/24 10:13) Rash house dust Allergy (Mild, Verified 10/18/24 10:13) runny nose, watery eyes Medication List - Last Reconciled 11/12/24 by Yony Irby MD atorvastatin 20 mg PO DAILY bupropion HCl XL 450 mg PO QAM fluticasone propionate 50 mcg/actuation 1 spray intranasal DAILY gabapentin 600 mg PO DAILY magnesium oxide 400 mg PO DAILY multivitamin 1 tab PO DAILY omeprazole 20 mg PO DAILY rivaroxaban (Xarelto) 20 mg PO QPM sotalol 80 mg PO BID HPI Comments Details: Eufemia comes for follow-up. Overall she has been doing well. She has had no prolonged palpitation irregular heartbeat. She occasionally feels fluttering in his chest. No worsening shortness of breath, orthopnea, PND. No leg edema. No lightheadedness, syncope. No exertional chest pain. Has not been exercising much. Uses CPAP regularly. No bleeding issues or neurologic events. [facility] Medical History Paroxysmal atrial fibrillation History of cardioversion GERD (gastroesophageal reflux disease) Elevated cholesterol HTN (hypertension) Sleep apnea Depression Atrial fibrillation Persistent atrial fibrillation Palpitation Surgical History History of esophagogastroduodenoscopy (EGD) H/O cardiac radiofrequency ablation H/O colonoscopy History of carpal tunnel surgery Family History Mother CAD (coronary artery disease) Father CAD (coronary artery disease) Social History Alcohol intake: current Alcohol intake frequency: holidays/special occasions only Patient Tobacco Use Status: Former Tobacco user Substance Use Type: Marijuana Review of Systems Const Denies chills, Denies fatigue, Denies fever(s), Denies frequent falls, Denies weakness, Denies weight gain and Denies weight loss ENT Denies dizziness Card Denies chest pain, Denies leg edema, Denies lightheadedness, Denies palpitations, Denies dyspnea, Denies dyspnea on exertion, Denies orthopnea and Denies other (loss of consciousness) Resp Denies cough, Denies dyspnea and Denies dyspnea on exertion GI Denies hematochezia and Denies change in stool character Musc Denies abnormal gait, Denies muscle weakness, Denies numbness, Denies radiating pain into limb and Denies tingling Neuro Denies Abnormal speech present, Denies abnormal gait, Denies dizziness, Denies frequent falls, Denies numbness, Denies tingling and Denies weakness Endo Denies fatigue and Denies palpitations Physical Exam Vital Signs: Last Vital Signs Pulse 66 11/12/24 14:36 BP 120/80 11/12/24 14:36 BMI result Body Mass Index 41.2 Const General: cooperative, comfortable, no acute distress, alert and awake Nutritional Appearance: obese Orientation/consciousness: patient oriented x3 Limitations: no limitations HEENT Head: Yes normocephalic and Yes atraumatic Neck Neck: Yes trachea midline, Yes supple and Yes no JVD Resp Effort & Inspection: normal respiratory effort Auscultation: clear to auscultation bilaterally Cardio Jugular venous distension: no JVD Rate: regular rate Rhythm: regular rhythm Heart sounds: S1 normal heart sound present, S2 normal heart sound present, no click, no gallops, no murmurs and no rubs GI Auscultation: normal bowel sounds Skin General skin exam: no rashes or lesions noted Neuro General: patient oriented x3 and no focal motor deficits Speech: No Abnormal speech present Extrem General: Yes no clubbing, cyanosis or edema Office Procedures EKG Details: EKG shows normal sinus rhythm with small amplitude P waves consistent with atrial myopathy with nonspecific ST changes with normal QT interval 24298-Nhsncuwqcygfncuvm, Complete Assessment & Plan Assessment & Plan (1) Paroxysmal atrial fibrillation: Code(s): I48.0 - Paroxysmal atrial fibrillation Category: Medical Plan: Highly symptomatic paroxysmal atrial fibrillation status post ablation. Symptoms most likely related to loss of AV synchrony in heart failure symptoms. Has done well with rhythm control approach. Currently on sotalol therapy and has maintain rhythm on it and has done well on it. Continue sotalol therapy. Continue full oral anticoagulation, currently on Xarelto 20 mg daily. Semi annual renal function test is recommended. Continue aggressive risk factor modification with aggressive control blood pressure, see below. Continue CPAP therapy which is very important. She also benefit aggressively from weight loss program. She says she is not able to do it on her own and wants some help. Will refer to bariatric colleagues. Also consider GLP 1 antagonist. (2) Hypertension: Code(s): I10 - Essential (primary) hypertension Category: Medical Plan: Hypertension which is currently well optimized advised to monitor blood pressure at home maintain a log. Goal blood pressure less than 130/84. Low-salt diet was discussed. Continue CPAP therapy. Continue participate in regular physical activity as well as weight loss program. Will follow up in the clinic in 6 months time, sooner p.r.n.. Thank you for allowing me to partake in her care Orders: Orders Basic Metabolic Panel Today I48.0 - Paroxysmal atrial fibrillation Referrals Bariatric Surgery Referral E66.01 - Morbid (severe) obesity due to excess calories Coding Level of Care Code Est Pt Level 4 (16072) Complex EM visit Add On G2211 Diagnoses Paroxysmal atrial fibrillation I48.0 Hypertension I10 CPT Codes EKG - CPT: 13144-Qrayfnadotezqhesj, Complete ([id number])
--- OUTSIDE RECORDS SUMMARY | 2024-11-12 14:37 | XMS_ITS | Patient Health Record ---
Author Organization [facility] Address [address] [place] [address] Care Team Providers Care Web Press Roll Tender Name Role Phone Dung WOODS, Vance Primary Care Provider Unavailab Boaz Escalante Jr Unavailable Allergies Allergen (clinical drug ingredient) Drug/Non Drug Allergy documented on EMR Reaction Allergy Type Onset Date Status cats,dust (uncoded) Unknown Allergy Active Results Component Value Reference Range Notes Pathology Reviewed date:12/13/2023 03:45:54 PM Interpretation: Performing Lab:[facility], [address] [place] [phone] Notes/Report: Name: Emily Castellano Age/Sex: 62/F : 1960 Unit#: [id number] Attend Dr: Boaz Franco MD Re12/09/23 Status : [facility] Location: [facility] Disch: SPEC : [id number] RECD : 12/09/23 STATUS: FESTUS GRACIA NUM: [id number] J CARLOS: 12/09/[address] [facility] [address]: Boaz Franco MD ENTERED: 12/09/23 SP [...] Emily Castellano Age/Sex: 62/F : 1960 Unit#: [id number] Attend Dr: Boaz Franco MD Re12/09/23 Status : [facility] Location: [facility] Disch: SPEC : [id number] RECD : 12/09/23 STATUS: FESTUS FONGRitika NUM: [id number] J CARLOS: 12/09/[address] [facility] [address]: Boaz Franco MD ENTERED: 12/09/23- SP [...] on A-F. Copies To: Boaz Franco MD [address] [place] [address] [address] [place] [id number] Vance Razo MD [address] [place] [address] [address] [place] [address] Signed (si gnature on file) Tamara Morejon [...] Problem Status W/U Status Risk Notes Problem 889911423 Colon cancer screening (Z12.11) Active confirmed Problem 127984338 tank terminal gauger (curre nt) use of anticoagulants (Z79.01) Active confirmed Problem Gastroesophageal reflux disease (K21.9) Active confirmed Problem 567908712 Gastroesophageal reflux disease, unspecified whether esophagitis present (K21.9) Active confirmed Encounters Encounter Location Date Provider Diagnosis [facility] Outpatient [address] [place], [place] [phone] 12/09/2023 Boaz Franco Jr Gastric intestinal metaplasia K31.A0 [facility] [address] [place] [address] 12/13/2023 Boaz Franco Jr Assessments Encounter Date Diagnosis (ICD Code) Assessment Notes Treatment Notes Treatment Clinical Notes Section Notes 12/09/2023 Gastric intestinal metaplasia (ICD-10 - K31.A0) Plan Of Treatment Future Test Test Name Order Date COLONOSCOPY 11/29/2012 UPPER GI ENDOSCOPY 06/08/2023 COLONOSCOPY 06/08/2023 Next Appt Details Provider Name:Boaz rasheed Jr, 12/12/2024 09:20:00 AM, [address] [place] [address], [address], [place], [address], Insurance Providers Payer Name Payer Address Payer Phone Subscriber Number Group Number Insured Name Patient Relationship to Insured Coverage Start Date Coverage End Date MEDICARE OF [place] [address] [place] [address] [id number] EMILY NEWBY Self - patient is the insured MEDICAID OF [facility] [address] [place] [id number] [id number] EMILY NEWBY Self - patient is the [...]
--- OUTSIDE RECORDS SUMMARY | 2024-11-12 14:37 | XMS_ITS ---
Author Organization [facility] Address [address] [place] [address] Care Team Providers Care Filemaker Developer Name Role Phone Vance Razo MD Primary Care Provider Unavailab vidal Franco Jr, Boaz Unavailable REASON FOR VISIT pathology Encounters Encounter Location Date Provider Diagnosis [facility] [address] [place] [phone] 12/13/2023 Boaz Franco Jr Plan Of Treatment Next Appt Details Provider Name:Boaz rasheed Jr, 12/12/2024 09:20:00 AM, [address], [address], [place], [address], Progress Notes * DEONTE HASSANOB:0 1960 (62 yo F)Acc No.[id number]:12/13/2023 Patient:?CORBIN HASSAN :1960???Age:62 Y???Sex:Female Address:[address] [place] [address], [address] * true * Date:? Generated for Printi miguel/Susu/eTransmitting on:?11/12/2024 02:37 PM EDT
--- OUTSIDE RECORDS SUMMARY | 2024-11-12 14:37 | XMS_ITS ---
Author Organization [facility] Address [address] [place] [address] Care Team Providers Care Greenskeeper Supervisor Name Role Phone Vance Razo MD Primary Care Provider Unavailab vidal Franco Jr, Boaz Unavailable REASON FOR VISIT labs Encounters Encounter Location Date Provider Diagnosis [facility] [address] [place] [phone] 07/28/2023 Boaz Franco Jr Plan Of Treatment Next Appt Details Provider Name:Boaz rasheed Jr, 12/12/2024 09:20:00 AM, [address], [address], [place], [address], Progress Notes * DEONTE HASSANOB:0 1960 (62 yo F)Acc No.[id number]:07/28/2023 Patient:?CORBIN HASSAN :1960???Age:62 Y???Sex:Female Address:[address] [place] [address], [address] * true * Date:? Generated for Printi miguel/Susu/eTransmitting on:?11/12/2024 02:37 PM EDT
--- OUTSIDE RECORDS SUMMARY | 2024-11-12 14:37 | XMS_ITS ---
Author Organization [facility] Address [address] [facility] [address] [place] [phone] Care Team Providers Care Stone Repairer Name Role Phone Dung WOODS, Vance Primary Care Provider Unavailab Boaz Escalante Jr Unavailable REASON FOR VISIT gastric intestinal metaplasia Encounters Encounter Location Date Provider Diagnosis [facility] Outpatient [address] [place] [phone] 12/09/2023 Boaz Franco Jr Gastric intestinal metaplasia K31.A0 Assessments Encounter Date Diagnosis (ICD Code) Assessment Notes Treatment Notes Treatment Clinical Notes Section Notes 12/09/2023 Gastric intestinal metaplasia (ICD-10 - K31.A0) Plan Of Treatment Next Appt Details Provider Name:Boaz rasheed Jr, 12/12/2024 09:20:00 AM, [address] [place] [address], Suite [facility], [place], [address], Progress Notes * DEONTE HASSANOB:0 1960 (63 yo F)Acc No.[id number]:12/09/2023 EGD/MAC Patient:?CORBIN HASSAN Provider:?Boaz Franco MD :1960???Age:62 Y???Sex:Female D ate:12/09/2023 Address:[address] [place], [place] [phone] Pcp:Vance Razo MD Subjective: * Chief Complaints: * ???1. Gastric intestinal met aplasia. * Medical History:? Objective: * Vitals:? Assessment: * Assessment: 1.?Gastric intestinal metapl aimee - K31.A0 (Primary)??? Plan: * Treatment: * Procedure Codes:?56813 UPPER GI ENDOSCOPY, BIOPSY * * The named appointment provid er may or may not be the originator of this progress note, and it is not deemed complete until electronically signed by the appointment provider. Sign off status: Pending * Provider:?Boaz Franco MD Date:?0 12/09/2023 Generated for Earle rivera/Susu/eTdevantesmitting on:?11/12/2024 02:36 PM EDT
== END 2024-11-12 15:05 | disposition home or self-care (01) ==
LOC: HO.HCS 14:34
PROVIDERS: PCP Family Medicine; Visit Provider Internal Medicine Cardiovascular Disease
DX: I48.0 Paroxysmal atrial fibrillation (principal); I10 Essential (primary) hypertension
CPT/HCPCS: 93010; 99214; G2211

== ENCOUNTER → 2024-11-29 13:52 | Outpatient (BNVA) | payer MEDICARE, MEDICAID, SELFPAY | PROVIDERS: PCP Family Medicine; Visit Provider Physician Assistant Surgical | DX: Z13.89 Encounter for screening for other disorder (principal) ==

== ENCOUNTER 2025-02-13 08:19 | Outpatient (AMB) | payer MEDICARE, MEDICAID, SELFPAY ==
--- OUTSIDE RECORDS SUMMARY | 2023-12-09 04:20 | XMS_ITS ---
Author Organization [facility] Address [address] [place] [address] [place] [phone] Care Team Providers Care Biofuels Plant Superintendent Name Role Phone Dung (RETIRED) , Vance Primary Care Provider Unavailable Boaz Franco Jr Unavailable JENNA LOPES Unavailable Unavailable REASON FOR VISIT gastric intestinal metaplasia Encounters Encounter Location Date Provider Diagnosis [facility] [place] Outpatient [address] [place] [id number] 12/09/2023 Boaz Franco Jr Gastric intestinal metaplasia K31.A0 Assessments Encounter Date Diagnosis (ICD Code) Assessment Notes Treatment Notes Treatment Clinical Notes Section Notes 12/09/2023 Gastric intestinal metaplasia (ICD-10 - K31.A0) Plan Of Treatment Next Appt Details Provider Name:Boaz rasheed Jr, 12/16/2025 09:00:00 AM, [address] [place] [address], Suite [facility], [place], [address], Progress Notes * DEONTE HASSANOB:0 1960 (64 yo F)Acc No.[id number]:12/09/2023 EGD/MAC Patient: Alisia EMILY IRENE Provider: Levon Franco MD :1960 A ge:62 Y S ex:Female Date:12/09/2023 Address:[address] [place], [place] [phone] Pcp:Vance Razo (RETIRED) MD Subjective: * Chief [...] 12/09/2023 Generated for Earle rivera/Susu/Sonaliitting on: 0 02/13/2025 08:56 AM EDT
--- NOTE | 2025-02-13 10:11 | A.OFFVIS_ITS ---
VS Expanded 02/13/25 10:21 Height 5 ft 4 in Weight 230 lb 8 oz BMI 39.6 Body Fat % 44.5 Body Fat Mass 102.6 Fat Free Mass 128 Visceral Fat Rating 14 Body Water % 39.4 Body Water Mass 90.8 Basal Metabolic Rate/Score 1,780 Intake Visit Reasons: [employer] [facility] Allergies duloxetine Allergy (Intermediate, Verified 02/13/25 10:11) Rash adhesive tape Allergy (Mild, Verified 02/13/25 10:11) Rash house dust Allergy (Mild, Verified 02/13/25 10:11) runny nose, watery eyes Medication List - Last Reconciled 02/13/25 by Oniel Denson MD atorvastatin 20 mg PO DAILY bupropion HCl XL 450 mg PO QAM fluticasone propionate 50 mcg/actuation 1 spray intranasal DAILY gabapentin 600 mg PO DAILY magnesium oxide 400 mg PO DAILY multivitamin 1 tab PO DAILY omeprazole 20 mg PO DAILY rivaroxaban (Xarelto) 20 mg PO QPM sotalol 80 mg PO BID HPI HPI [employer] [facility]: Details: Start time: 10.11am, End time: 10.56am ?I spent 40 minutes speaking with the patient on the phone plus an additional 5 minutes reviewing and updating records for a total of 45 minutes HPI Comments Details: Previous weight loss efforts: self diet and exercise Wakes up: 8am, Sleeps: 2am Breakfast: 9am premade Premier shake Lunch: 2pm (eggs, tuna fish) Dinner: 5-6pm (chicken, fish, potatoes) Snacks: 2-3 times after dinner (candy, cookies, pudding) Exercise: none Beverages: Coffee: 1-2/wk, Tea: hot tea (1 cup/d plain), Soda: 2/wk (1 bottle regular Coke), Juice: none, ETOH: 1/wk ([place] with Coke 16oz) [facility] Medical History (Updated 02/13/25 @ 10:36 by Oniel Denson MD) Anxiety DJD (degenerative joint disease) Restless leg syndrome Obstructive sleep apnea on CPAP Obesity Paroxysmal atrial fibrillation History of cardioversion GERD (gastroesophageal reflux disease) Elevated cholesterol HTN (hypertension) Sleep apnea Depression Atrial fibrillation Persistent atrial fibrillation Palpitation Surgical History History of esophagogastroduodenoscopy (EGD) H/O cardiac radiofrequency ablation H/O colonoscopy History of carpal tunnel surgery Family History Mother CAD (coronary artery disease) Father CAD (coronary artery disease) Social History Alcohol intake: current Alcohol intake frequency: holidays/special occasions only Patient Tobacco Use Status: Former Tobacco user Substance Use Type: Marijuana Telehealth Telehealth Telehealth Platform: Telephone Location of provider rendering services: practice address Location of patient: address on file Patient Identification confirmed using: Name, : Yes Telehealth method: voice only Patient verbally consented to treatment: Yes Patient verbally consented to billing insurance company: Yes Patient informed of any privacy concerns related to visit: Yes Minutes spent on Phone/Video with Pt.: 45 Assessment & Plan Assessment & Plan (1) Obesity: Code(s): E66.9 - Obesity, unspecified Category: Medical Qualifiers: Obesity type: due to excess calories Obesity classification: adult class 2 (BMI 35 - 39.9) Serious obesity comorbidity presence: with serious comorbidity Body mass index: BMI 39.0-39.9 Qualified Code(s): E66.812 - O besity, class 2; E66.01 - Morbid (severe) obesity due to excess calories; Z68.39 - Body mass index [BMI] 39.0-39.9, adult Plan: 1.? Plan for lap sleeve gastrectomy. If diaphragmatic or ventral hernias are present at time of surgery, these will be repaired laparoscopically as well. I emphasized the importance of close follow-up, adherence to instructions and good communication. The surgery does not replace the need to change your lifestlyle which is the cause of the obesity problem. The surgery provides the motivation to try again to change your lifestyle, it reduces the appetite and make the transition to a better lifestyle easier and doubles the amount of weight you would lose compared to doing the lifestyle change without the surgery. You will need to be on a liquid diet with protein shakes for 2 weeks before surgery to maximize weight loss and boost your nutritional status to recover better from surgery and also for the first two weeks after surgery to let the stomach heal before we introduce other foods. After the first 2 weeks we will introduce protein bars and soft foods like scrambled eggs, cottage cheese and yogurt and after the 6th week will introduce meat, fish and cooked vegetables in small amounts. Over time you should be able to eat everything in small amounts. Side effects like nausea, vomiting, heartburn or abdominal pain are not common in the practice unless you are not following in the practice. This operation requires lifetime commitment to following in our practice and communication with me. You will much less weight and experience side effects if you don?t communicate or not following in the practice. Complications are rare and in our practice is about 1/10 of the national average. However, you can develop bleeding that may require transfusion (hasn?t happened for year in the practice), you may from complications (we did not have any deaths in the practice) and infections. Infections are usually a result of breakdown in communication or not understanding or following directions correctly. They are difficult to treat, they can happen during the first 6 weeks, they may require to be in the hospital for weeks or even months, not being able to eat by mouth and you may have drains and surgeries to try and correct the issue. Other risks and complications include possible conversion to an open procedure, leaks, small bowel obstruction, blood clots, cardiac, or pulmonary complications, as exterminator complications such as ulcers, insufficient weight loss and vitamin deficiencies. 2. Nutritional counseling. Start with one premade PREMIER protein (buy at [employer]? or [employer]) shake (mix 4oz of Premier mixed with 4oz low fat unsweetened almond milk each) at 9am-11am, one protein bar (Fit Crunch protein bar, buy at [employer], or [employer]?) at 12pm-2pm, another premade PREMIER protein shake (mix 4oz of Premier mixed with 4oz low fat unsweetened almond milk each) at 3pm-5pm, dinner at 6pm (8 forks of protein and 8 forks of salad/vegetables), another [employer]unch protein bar at 8pm-10pm and another premade PREMIER shake (mix 4oz of Premier mixed with 4oz low fat unsweetened almond milk each) at 11pm-1am after midnight. So you do 3 protein shakes, 2 protein bars and one meal per day. Meal to include lean meat (beef, fish, pork, turkey, chicken), or congolese yogurt, or egg whites, or beans with a salad with olive oil and fruits (berries, pears, apples, kiwi). Avoid salt, breads, potatoes, rice, pasta, desserts. 3. Each shake would be drunk slowly, like coffee in a period of 2 hours. 4. Cut each bar in 4 pieces and eat each piece in 30min ?to make each bar last 2 hours. 5. I emphasized the importance of measuring accurately the food portion and measure it when serving the food in plate 6. The meal portions include 8 full-size forks of meat and 8 full-size forks of salad. You always eat the meat portion but you can replace up to 4 forks for salad/vegetables with rice, potatoes or pasta, or a fruit ?if you like. The less you do it the better weight loss will be. 7. One full-size fork is what it can be scooped on the fork without falling aside and not what can be bit with the fork. Use regular forks like those you find in a typical restaurant. 8.? Please buy the body composition scale we discussed and send me weight measurements as soon as possible and then once a week. Always include your diet and exercise plan. 9. The best choice would be to purchase a stationary bike at home that can track calories. If you get a bike, please start stationary bike at a resistance level of 0.0 Increase level by 1.0 every 3 min to a max level of 6.0. Stay at this level for 3 min and then return to level 0.0 and repeat same steps until 300 calories are burned. Goal is to burn 2000 calories per week on exercise. You can split each daily session into three smaller ones from 100 calories each. 10. Goal is to lose at least 1.5-2lbs per week 11. Goal to lose 10% of your weight before surgery, which is about 23lbs. Ultimate weight goal: 207lbs before surgery 12. Please follow the diet plan exactly without any change. If you don't like something about the plan or you feel hungry you need to communicate with me so I can help you revise the plan. You should not change the plan yourself 13. To be scheduled for EGD to assess the stomach's anatomy. The possibility of biopsies was discussed. Patient needs to avoid use of NSAIDs and aspirin for 1 week prior to EGD. You must be on liquids only the day before your endoscopy. Risks of perforation and bleeding was discussed with the patient. This will be an outpatient procedure with IV sedation. 14. Please do the following test: Check your heart rate at rest (at your sleep). Walk for exactly one mile distance as fast as you can and check your heart rate again as soon as you complete the mile walk. Text me the heart rate at rest and after the walk and the time in minutes and seconds that took you to complete the mile walk. You can use your smartphone's stopwatch to track accurately the time it took to walk the mile. Orders: Orders Insulin Today E66.01 - Morbid (severe) obesity due to excess calories, E66.812 - Obesity, class 2, I10 - Essential (primary) hypertension, I48.91 - Unspecified atrial fibrillation, K21.9 - Gastro-esophageal reflux disease without esophagitis, Z68.39 - Body mass index [BMI] 39.0-39.9, adult H Pylori Breath Test Today E66.01 - Morbid (severe) obesity due to excess calories, E66.812 - Obesity, class 2, I10 - Essential (primary) hypertension, I48.91 - Unspecified atrial fibrillation, K21.9 - Gastro-esophageal reflux disease without esophagitis, Z68.39 - Body mass index [BMI] 39.0-39.9, adult Complete Blood Count Auto Diff Today E66.01 - Morbid (severe) obesity due to excess calories, E66.812 - Obesity, class 2, I10 - Essential (primary) hypertension, I48.91 - Unspecified atrial fibrillation, K21.9 - Gastro- esophageal reflux disease without esophagitis, Z68.39 - Body mass index [BMI] 39.0-39.9, adult Lipid Panel Today E66.01 - Morbid (severe) obesity due to excess calories, E66.812 - Obesity, class 2, I10 - Essential (primary) hypertension, I48.91 - Unspecified atrial fibrillation, K21.9 - Gastro-esophageal reflux disease without esophagitis, Z68.39 - Body mass index [BMI] 39.0-39.9, adult Comprehensive Met. Panel Today E66.01 - Morbid (severe) obesity due to excess calories, E66.812 - Obesity, class 2, I10 - Essential (primary) hypertension, I48.91 - Unspecified atrial fibrillation, K21.9 - Gastro-esophageal reflux disease without esophagitis, Z68.39 - Body mass index [BMI] 39.0-39.9, adult Vitamin B12 and Folate Today E66.01 - Morbid (severe) obesity due to excess calories, E66.812 - Obesity, class 2, I10 - Essential (primary) hypertension, I48.91 - Unspecified atrial fibrillation, K21.9 - Gastro-esophageal reflux disease without esophagitis, Z68.39 - Body mass index [BMI] 39.0-39.9, adult Zinc Today E66.01 - Morbid (severe) obesity due to excess calories, E66.812 - Obesity, class 2, I10 - Essential (primary) hypertension, I48.91 - Unspecified atrial fibrillation, K21.9 - Gastro-esophageal reflux disease without esophagitis, Z68.39 - Body mass index [BMI] 39.0-39.9, adult Vitamin D 25-OH Total Today E66.01 - Morbid (severe) obesity due to excess calories, E66.812 - Obesity, class 2, I10 - Essential (primary) hypertension, I48.91 - Unspecified atrial fibrillation, K21.9 - Gastro-esophageal reflux disease without esophagitis, Z68.39 - Body mass index [BMI] 39.0-39.9, adult US abdomen comp w elastography Today E66.01 - Morbid (severe) obesity due to e xcess calories, E66.812 - Obesity, class 2, I10 - Essential (primary) hypertension, I48.91 - Unspecified atrial fibrillation, K21.9 - Gastro- esophageal reflux disease without esophagitis, Z68.39 - Body mass index [BMI] 39.0-39.9, adult XR chest 2V Today E66.01 - Morbid (severe) obesity due to excess calories, E66.812 - Obesity, class 2, I10 - Essential (primary) hypertension, I48.91 - Unspecified atrial fibrillation, K21.9 - Gastro-esophageal reflux disease without esophagitis, Z68.39 - Body mass index [BMI] 39.0-39.9, adult ECG 12 lead EKG Today E66.01 - Morbid (severe) obesity due to excess calories, E66.812 - Obesity, class 2, I10 - Essential (primary) hypertension, I48.91 - Unspecified atrial fibrillation, K21.9 - Gastro-esophageal reflux disease without esophagitis, Z68.39 - Body mass index [BMI] 39.0-39.9, adult FL upper GI w air Today E66.01 - Morbid (severe) obesity due to excess calories, E66.812 - Obesity, class 2, I10 - Essential (primary) hypertension, I48.91 - Unspecified atrial fibrillation, K21.9 - Gastro-esophageal reflux disease without esophagitis, Z68.39 - Body mass index [BMI] 39.0-39.9, adult Hemoglobin A1c Today E66.01 - Morbid (severe) obesity due to excess calories, E66.812 - Obesity, class 2, I10 - Essential (primary) hypertension, I48.91 - Unspecified atrial fibrillation, K21.9 - Gastro-esophageal reflux disease without esophagitis, Z68.39 - Body mass index [BMI] 39.0-39.9, adult IRON PROFILE Today E66.01 - Morbid (severe) obesity due to excess calories, E66.812 - Obesity, class 2, I10 - Essential (primary) hypertension, I48.91 - Unspecified atrial fibrillation, K21.9 - Gastro-esophageal reflux disease without esophagitis, Z68.39 - Body mass index [BMI] 39.0-39.9, adult C Reactive Protein Today E66.01 - Morbid (severe) obesity due to excess calories, E66.812 - Obesity, class 2, I10 - Essential (primary) hypertension, I48.91 - Unspecified atrial fibrillation, K21.9 - Gastro-esophageal reflux disease without esophagitis, Z68.39 - Body mass index [BMI] 39.0-39.9, adult Vitamin B1 Today E66.01 - Morbid (severe) obesity due to excess calories, E66.812 - Obesity, class 2, I10 - Essential (primary) hypertension, I48.91 - Unspecified atrial fibrillation, K21.9 - Gastro-esophageal reflux disease without esophagitis, Z68.39 - Body mass index [BMI] 39.0-39.9, adult Vitamin A Today E66.01 - Morbid (severe) obesity due to excess calories, E66.812 - Obesity, class 2, I10 - Essential (primary) hypertension, I48.91 - Unspecified atrial fibrillation, K21.9 - Gastro-esophageal reflux disease without esophagitis, Z68.39 - Body mass index [BMI] 39.0-39.9, adult TSH reflex Free T4 Today E66.01 - Morbid (severe) obesity due to excess calories, E66.812 - Obesity, class 2, I10 - Essential (primary) hypertension, I48.91 - Unspecified atrial fibrillation, K21.9 - Gastro-esophageal reflux disease without esophagitis, Z68.39 - Body mass index [BMI] 39.0-39.9, adult Ferritin Today E66.01 - Morbid (severe) obesity due to excess calories, E66.812 - Obesity, class 2, I10 - Essential (primary) hypertension, I48.91 - Unspecified atrial fibrillation, K21.9 - Gastro-esophageal reflux disease without esophagitis, Z68.39 - Body mass index [BMI] 39.0-39.9, adult Referrals Behavioral Health Referral E66.01 - Morbid (severe) obesity due to excess calories, E66.812 - Obesity, class 2, I10 - Essential (primary) hypertension, I48.91 - Unspecified atrial fibrillation, K21.9 - Gastro-esophageal reflux disease without esophagitis, Z68.39 - Body mass index [BMI] 39.0-39.9, adult Nutrition/Dietitian Referral E66.01 - Morbid (severe) obesity due to excess calories, E66.812 - Obesity, class 2, I10 - Essential (primary) hypertension, I48.91 - Unspecified atrial fibrillation, K21.9 - Gastro-esophageal reflux disease without esophagitis, Z68.39 - Body mass index [BMI] 39.0-39.9, adult
[2025-02-13 10:21] VITALS: BMI 39.6
== END 2025-02-13 10:57 | disposition home or self-care (01) ==
LOC: HO.HBS 08:19
PROVIDERS: PCP Family Medicine; Visit Provider Surgery
DX: E66.812 Obesity, class 2 (principal); E66.01 Morbid (severe) obesity due to excess calories; Z68.39 Body mass index [BMI] 39.0-39.9, adult
CPT/HCPCS: 99204

== ENCOUNTER 2025-02-20 11:04 | Outpatient (AMB) | payer MEDICARE, MEDICAID, SELFPAY ==
--- OUTSIDE RECORDS SUMMARY | 2023-12-09 04:20 | XMS_ITS ---
Author Organization [facility] Address [address] [place] [address] [place] [phone] Care Team Providers Care Clinical Program Manager Name Role Phone Dung (RETIRED) , Vance Primary Care Provider Unavailable Boaz Franco Jr Unavailable JENNA LOPES Unavailable Unavailable REASON FOR VISIT gastric intestinal metaplasia Encounters Encounter Location Date Provider Diagnosis [facility] Outpatient [address] [place] [id number] 12/09/2023 Boaz Franco Jr Gastric intestinal metaplasia K31.A0 Assessments Encounter Date Diagnosis (ICD Code) Assessment Notes Treatment Notes Treatment Clinical Notes Section Notes 12/09/2023 Gastric intestinal metaplasia (ICD-10 - K31.A0) Plan Of Treatment Next Appt Details Provider Name:Boaz rasheed Jr, 12/16/2025 09:00:00 AM, [address] [place] [address], Suite [facility], [place], [address], Progress Notes * DEONTE HASSANOB:0 1960 (64 yo F)Acc No.[id number]:12/09/2023 EGD/MAC Patient: Alisia EMILY IRENE Provider: Levon Franco MD :1960 A ge:62 Y S ex:Female Date:12/09/2023 Address:[address] [place], [place] [phone] Pcp:Vance Razo (RETIRED) MD Subjective: * Chief Complaints: * 1 . Gastric intestinal metaplasia. * Medical History: Objective: * Vitals: Assessment: * Assessment: 1. G astric intestinal metaplasia - K31.A0 (Primary) Plan: * Treatment: * Procedure Codes: 4 3239 UPPER GI ENDOSCOPY, BIOPSY * * The named appointment provid er may or may not be the originator of this progress note, and it is not deemed complete until electronically signed by the appointment provider. Sign off status: Pending * Provider: Levon Franco MD Date: 0 12/09/2023 Generated for Earle rivera/Susu/Sonaliitting on: 0 02/20/2025 12:00 PM EDT
--- NOTE | 2025-02-20 11:12 | MHC.PC.OV ---
Vital Signs 02/20/25 11:19 Height 5 ft 4 in Weight 109.769 kg BMI 41.5 BP 120/78 Respiration 16 Pulse 66 Pulse Source Pulse Oximeter Temp 97.5 F Temp Source Temporal Artery Scan Pulse Oximetry (%) 98 Oxygen Delivery Method Room Air Intake Visit Reasons: 3 MO F/UP - FREDY PT - see comments Hand Inspector Required: No Accompanied by: Self / Same As Patient Allergies duloxetine Allergy (Intermediate, Verified 02/20/25 11:13) Rash adhesive tape Allergy (Mild, Verified 02/20/25 11:13) Rash house dust Allergy (Mild, Verified 02/20/25 11:13) runny nose, watery eyes Medication List - Last Reconciled 02/20/25 by CIERRA Cortez atorvastatin 20 mg PO DAILY bupropion HCl XL 300 mg PO QAM cholecalciferol (vitamin D3) 25 mcg PO DAILY fluticasone propionate 50 mcg/actuation 1 spray intranasal DAILY gabapentin 600 mg PO BEDTIME magnesium oxide 400 mg PO DAILY multivitamin 1 tab PO DAILY omeprazole 20 mg PO DAILY rivaroxaban (Xarelto) 20 mg PO QPM sotalol 80 mg PO BID venlafaxine ER 37.5 mg PO DAILY Tobacco use date assessed: 02/20/25 Fall risk assessment: 2 + Falls in past year Last assessed Fall Risk: 02/20/25 Dental Screening Dental Screen Date: 02/20/25 Did you have a dental visit in the last 12 months?: Yes Did you have a dental problem in the last 6 months where you did not have access to dental care?: No Was dental information given to patient?: No HPI HPI Comments History of Present Illness Details 64-year-old female with history of idiopathic peripheral neuropathy, obstructive sleep apnea, GERD, hypertension, paroxysmal atrial fibrillation, osteoarthritis, major depressive disorder, and obesity presents to the office today for management of chronic conditions and to establish care. She was a former Dr. Razo patient, last seen 10/2024. Paroxysmal atrial fibrillation/hypertension-following with Dr. Irby. S/p cardioversion 2022 and ablation 2023. Anticoagulated with Xarelto. On sotalol 80 mg twice daily Obstructive sleep apnea-compliant with CPAP Idiopathic polyneuropathy-on gabapentin GERD-stable on omeprazole Major depressive disorder/anxiety-bupropion 300 mg XL. Stopped zoloft as she felt this was adversely affecting HR, BP. Made her feel foggy, difficulty concentrating. Had started November 2024. Discontinued 01/15 and BP did go down from 144/91 to 128/81. Still does feel depressed and anxious. Caused some more intrusive thoughts, passive thoughts of suicide. Have resolved since DC. Follows with Dr. Hayes. Has tried effexor in the past, does not recall adverse effects. Next appt 04/18. Morbid obesity- BMI 41.5. Walking for exercise 3x per week for 20-30m, but no specific routine. Leg raises and stretches. Legs feel like they are going to give out- primarily on stairs. Some RUELAS, not limiting. No edema. Concerns: As above Muscle weakness when climbing stairs. Some pain in the L SI joint. Seeing a chiropractor. Has known history of DDD. Also radicular symptoms. Occ intermittent quick sharp/pain randomly ble. Health maintenance: Last screening mammogram 02/2024, negative for malignancy, 1 year follow-up advised. Has not yet scheduled Last screening colonoscopy 06/2023 with 10 year follow-up advised. Dr. Franco Last Pap smear ROS: General: No fevers, malaise, unintentional weight loss HEENT: No blurred vision, diplopia. No sore throat, nasal congestion, rhinorrhea, sinus pain, ear pain Cardiovascular: No chest pain, palpitations, or leg edema Respiratory: No shortness of breath, wheezing, cough GI: No abdominal pain, nausea, vomiting, diarrhea, constipation, melena, hematochezia : No dysuria, hematuria, increased urinary frequency, decreased urinary output MSK: See HPI Neuro: No headaches, weakness, paresthesias. See HPI Skin: No rashes or lesions EXAM: Constitutional - Awake and Alert, No apparent distress Eyes - PERRL Cardiovascular - S1S2, RRR, No edema Respiratory - Normal lung expansion, Normal respiratory effort, No respiratory distress, CTA bilaterally Extremities - no calf tenderness bilaterally, no swelling MSK-midline low back pain at the level of about L4-L5 with bilateral paraspinal tenderness to palpation. There is also tenderness over the left SI joint. Negative straight leg raises. Symmetric 1+ patellar reflexes bilaterally, downgoing Babinski Skin - Warm/Dry Neurological - Alert & oriented x3. 5/5 strength bilateral lower extremities Psychological - Appropriate affect [facility] Medical History (Updated 02/20/25 @ 12:36 by CIERRA Cortez) Lower extremity weakness Anxiety DJD (degenerative joint disease) Restless leg syndrome Obstructive sleep apnea on CPAP Obesity Paroxysmal atrial fibrillation History of cardioversion GERD (gastroesophageal reflux disease) Elevated cholesterol HTN (hypertension) Sleep apnea Depression Atrial fibrillation Persistent atrial fibrillation Palpitation Surgical History (Updated 02/20/25 @ 11:34 by CIERRA Cortez) History of esophagogastroduodenoscopy (EGD) H/O cardiac radiofrequency ablation H/O colonoscopy (~07/19/23) History of carpal tunnel surgery Family History Mother CAD (coronary artery disease) Father CAD (coronary artery disease) Social History Housing: Apartment Alcohol intake: current Alcohol intake frequency: holidays/special occasions only Patient Tobacco Use Status: Former Tobacco user (Quite in 2017) e-Cigarette/Vaping Use: Never Used Substance Use Type: Marijuana service: No Current occupational status: disabled Cognitive needs: No Hearing needs: No Vision needs: Yes (Rx glasses) Questionnaire PHQ-9 Over the last 2 weeks, how often have you been bothered by any of the following problems? 1. Little interest or pleasure in doing things: several days 2. Feeling down, depressed, or hopeless: several days 3. Trouble falling or staying asleep, or sleeping too much: more than half the days 4. Feeling tired or having little energy: more than half the days 5. Poor appetite or overeating: nearly every day 6. Feeling bad about yourself - or that you are a failure or have let yourself or your family down: several days 7. Trouble concentrating on things, such as reading the newspaper or watching television: more than half the days 8. Moving or speaking so slowly that other people could have noticed. Or the opposite - being so fidgety or restless that you have been moving around a lot more than usual: not at all 9. Thoughts that you would be better off or of hurting yourself in some way: not at all Total score: 12 Source: Developed by Drs. Jeff Carson, Ioana Sauer, Sidney Barr and colleagues, with an educational ayana from [employer]. Physical exam (Primary Care) Vital Signs: Last Vital Signs Temp 97.5 F 02/20/25 11:19 Pulse 66 02/20/25 11:19 Resp 16 02/20/25 11:19 BP 120/78 02/20/25 11:19 Pulse Ox 98 02/20/25 11:19 Oxygen Delivery Method Room Air 02/20/25 11:19 BMI result Body Mass Index 41.5 Tobacco/Smoking Status: Tobacco use Status Tobacco use date assessed 02/20/25 02/20/25 11:21 Patient Tobacco Use Status Former Tobacco user (Quite 02/20/25 11:21 in 2017) e-Cigarette/Vaping Use Never Used 02/20/25 11:21 PHQ-9: PHQ-9 Score PHQ-9: Total score 12 02/20/25 11:49 Coding Level of Care Code New Pt Level 4 (54097) Complex EM visit Add On G2211 Diagnoses Hypertension I10 Depression F32.9 Paroxysmal atrial fibrillation I48.0 Obstructive sleep apnea on CPAP G47.33 BMI 39.0-39.9,adult Z68.39 Morbid obesity with BMI of 40.0-44.9, adult E66.01; Z68.41 Bilateral lumbar radiculopathy M54.16 Assessment & Plan Assessment & Plan (1) Hypertension: Code(s): I10 - Essential (primary) hypertension Category: Medical Plan: Controlled. Continue current therapies (2) Depression: Code(s): F32.9 - Major depressive disorder, single episode, unspecified Category: Medical Plan: Uncontrolled. Can continue discontinuation of sertraline. We will retry Effexor 37.5 mg ER along with her bupropion 300 mg XL. Continue following with Psychiatry. Follow up in the office in 1 month (3) Paroxysmal atrial fibrillation: Code(s): I48.0 - Paroxysmal atrial fibrillation Category: Medical Plan: Rate controlled. Continue Xarelto for anticoagulation. Continue sotalol 80 mg twice daily. Follow-up with cardiology as scheduled (4) Obstructive sleep apnea on CPAP: Code(s): G47.33 - Obstructive sleep apnea (adult) (pediatric) Category: Medical Plan: Continue CPAP (5) BMI 39.0-39.9,adult: Code(s): Z68.39 - Body mass index [BMI] 39.0-39.9, adult Category: Medical Plan: Continue with weight loss efforts. No longer interested in following with bariatric surgery but is interested in referral to nutrition which is placed (6) Morbid obesity with BMI of 40.0-44.9, adult: Code(s): E66.01 - Morbid (severe) obesity due to excess calories; Z68.41 - Body mass index [BMI] 40.0-44.9, adult Category: Medical Plan: See above (7) Bilateral lumbar radiculopathy: Code(s): M54.16 - Radiculopathy, lumbar region Category: Medical Plan: Refer to physical therapy. Do suspect that she will ultimately need an MRI of the lumbar spine but will trial physical therapy 1st. She can use Tylenol as needed for pain as well as topical analgesics Plan Follow-up in 1 month with labs completed p following visit Orders: Orders Complete Blood Count Auto Diff Today I10 - Essential (primary) hypertension, I48.0 - Paroxysmal atrial fibrillation, R29.898 - Other symptoms and signs involving the musculoskeletal system, Z68.39 - Body mass index [BMI] 39.0-39.9, adult Lipid Panel Today I10 - Essential (primary) hypertension, I48.0 - Paroxysmal atrial fibrillation, R29.898 - Other symptoms and signs involving the musculoskeletal system, Z68.39 - Body mass index [BMI] 39.0-39.9, adult Basic Metabolic Panel Today I10 - Essential (primary) hypertension, I48.0 - Paroxysmal atrial fibrillation, R29.898 - Other symptoms and signs involving the musculoskeletal system, Z68.39 - Body mass index [BMI] 39.0-39.9, adult Liver Panel Today I10 - Essential (primary) hypertension, I48.0 - Paroxysmal atrial fibrillation, R29.898 - Other symptoms and signs involving the musculoskeletal system, Z68.39 - Body mass index [BMI] 39.0-39.9, adult TSH reflex Free T4 Today I10 - Essential (primary) hypertension, I48.0 - Paroxysmal atrial fibrillation, R29.898 - Other symptoms and signs involving the musculoskeletal system, Z68.39 - Body mass index [BMI] 39.0-39.9, adult PT Evaluation and Treatment Today M54.16 - Radiculopathy, lumbar region Referrals Embosser Operator Nutrition Referral E66.01 - Morbid (severe) obesity due to excess calories, Z68.41 - Body mass index [BMI] 40.0-44.9, adult Medications: New venlafaxine ER 37.5 mg PO DAILY 90 caps 1RF
[2025-02-20 11:19] VITALS: BP 120/78; PULSE 66; RESP 16; TEMP 36.4; O2SAT 98; BMI 41.5
--- OUTSIDE RECORDS SUMMARY | 2025-02-20 12:01 | XMS_ITS | Patient Health Record ---
Author Organization [facility] Address [address] [place] [id number] Care Team Providers Care Fagot Maker Name Role Phone Dung (RETIRED) Vance WOODS Primary Care Provider Unavailable Boaz Franco Jr Unavailable JENNA LOPES Unavailable Unavailable Allergies Allergen (clinical drug ingredient) Drug/Non Drug Allergy documented on EMR Reaction Allergy Type Onset Date Status cats,dust (uncoded) Unknown Allergy Active Reason For Referral No Information Medications Medication SIG (Take, Route, Frequency, Duration) Notes Start Date End Date Status buPROPion HCl ER (XL) 450 MG 1 tablet in the morning Orally Once a day for 30 day(s) Active Magnesium 27 500 (27 Mg) MG 1 tablet Ora lly Once a day for 30 day(s) Active Gabapentin 300 MG 1 capsule Orally Onc e a day for 30 day(s) Active Fluticasone Propionate (Inhal) 50 MCG/BLIST 1 puff Inhalation Twice a day Active PriLOSEC 20mg Active Xarelto 20 MG 1 tablet with food O rally Once a day for 30 day(s) Active One A Day Women 50 Plus - as directed Orally Active Zoloft 25 MG 1 tablet Orally Once a day Active Vitamin D Active Zinc Active ZyrTEC 20mg Active Lipitor 20mg Active Immunizations Vaccine Route Administration Date Status Comme nts Influenza Unknown 04/17/2024 Administered Influenza Unknown 06/08/2023 Refused Problems Problem Type SNOMED Code ICD Code Onset Dates Problem Status W/U Status Risk Notes Problem 221528067 Colon cancer screening (Z12.11) Active confirmed Problem 368484297 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 [address] [place] [address] 12/12/2024 Boaz Franco Jr Gastroesophageal reflux disease, unspecified whether esophagitis present K21.9 ; Colon cancer screening Z12.11 and intermediate accountant (current) use of anticoagulants Z79.01 Assessments Encounter Date Diagnosis (ICD Code) Assessment Notes Treatment Notes Treatment Clinical Notes Section Notes 12/12/2024 Colon cancer screening (ICD-10 - Z12.11) At this time, she is doing well. She we will continue omeprazole for control of her reflux. We discussed diet, lifestyle modifications , and weight management regarding the treatment of reflux. We reviewed her biopsy results with which did not show any evidence of gastric intestinal metaplasia or H. pylori infection. Her risk for a stomach cancer is very low. We will see her in follow-up in 1 year. She is up-to-date on colorectal cancer screening. 12/12/2024 Gastroesophageal reflux disease, unspecified whether esophagitis present (ICD-10 - K21.9) At this time, she is doing well. She we will continue omeprazole for control of her reflux. We discussed diet, lifestyle modifications , and weight management regarding the treatment of reflux. We reviewed her biopsy results with which did not show any evidence of gastric intestinal metaplasia or H. pylori infection. Her risk for a stomach cancer is very low. We will see her in follow-up in 1 year. She is up-to-date on colorectal cancer screening. 12/12/2024 alf (current) use of anticoagulants (ICD-10 - Z79.01) At this time, she is doing well. She we will continue omeprazole for control of her reflux. We discussed diet, lifestyle modifications , and weight management regarding the treatment of reflux. We reviewed her biopsy results with which did not show any evidence of gastric intestinal metaplasia or H. pylori infection. Her risk for a stomach cancer is very low. We will see her in follow-up in 1 year. She is up-to-date on colorectal cancer screening. Plan Of Treatment Future Test Test Name Order Date COLONOSCOPY 11/29/2012 UPPER GI ENDOSCOPY 06/08/2023 COLONOSCOPY 06/08/2023 Next Appt Details Provider Name:Boaz shavergermán Frye, 12/16/2025 09:00:00 AM, [address], [address], [place], [address], Insurance Providers Payer Name Payer Address Payer Phone Subscriber Number Group Number Insured Name Patient Relationship to Insured Coverage Start Date Coverage End Date MEDICARE OF [place] [address] [place]FUG[place] BELLONIC[place] [address] [phone] [id number] EMILY NEWBY Self - patient is the insured MEDICAID OF [facility] [address] [place] [address] [id number] EMILY NEWBY Self - patient is the insured Medical (General) History Medical History History ICD Code Depression Degenerative joint disease Gastroesophageal reflux dise ase, History of gastric intestinal metaplasia, EGD 12/18, no gastric intestinal metaplasia, follow-up as needed. Back pain/sciatica Atrial fibrillation status post cardiove rsion, scheduled for ablation 08/20 Obstructive sleep apnea Hyperlipidemia Hypertension Colonoscopy 07/20, normal, 10-year follow -up Surgical History Surgery Date(Month/Year) Dental extractions Bilateral carpal, repair tonsillectomy
== END 2025-02-20 11:49 | disposition home or self-care (01) ==
LOC: HO.HMCHD 11:05
PROVIDERS: PCP Family Medicine; Visit Provider Physician Assistant
DX: I10 Essential (primary) hypertension (principal); F32.9 Major depressive disorder, single episode, unspecified; I48.0 Paroxysmal atrial fibrillation; G47.33 Obstructive sleep apnea (adult) (pediatric); Z68.39 Body mass index [BMI] 39.0-39.9, adult; E66.01 Morbid (severe) obesity due to excess calories; Z68.41 Body mass index [BMI] 40.0-44.9, adult; M54.16 Radiculopathy, lumbar region

== ENCOUNTER → 2025-02-20 11:04 | Outpatient (BNVA) | payer MEDICARE, MEDICAID, SELFPAY | PROVIDERS: PCP Family Medicine; Visit Provider Physician Assistant | DX: I10 Essential (primary) hypertension (principal); F32.9 Major depressive disorder, single episode, unspecified; I48.0 Paroxysmal atrial fibrillation; G47.33 Obstructive sleep apnea (adult) (pediatric); E66.01 Morbid (severe) obesity due to excess calories; Z68.41 Body mass index [BMI] 40.0-44.9, adult; M54.16 Radiculopathy, lumbar region; Z79.01 Long term (current) use of anticoagulants; Z79.899 Other long term (current) drug therapy; Z99.89 Dependence on other enabling machines and devices; Z13.30 Encounter for screening examination for mental health and behavioral disorders, unspecified | CPT/HCPCS: 96127; 99202 ==

== ENCOUNTER 2025-03-18 16:37 | Outpatient (REF) | payer MEDICARE, MEDICAID, SELFPAY ==
[2025-03-18 16:47] LABS: MANUAL DIFF FLAG NO
[2025-03-18 17:19] LABS: Hematocrit 42.0 % (37.0-47.0); Hemoglobin 13.1 g/dl (12.0-16.0); Imm Gran Abs Auto 0.04 X10*3/uL (0.00-0.03); Imm Gran Pct Auto 0.4 % (0.0-0.4); Lymphocytes Absolute Auto 2.2 X10*3/uL (1.2-4.9); Mean Corpuscular HGB Conc 31.2 g/dl (31.0-35.0); Mean Corpuscular Hemoglobin 27.4 pg (27.0-33.0); Mean Corpuscular Volume 87.9 fL (80.0-98.0); NRBC Abs Auto 0.000 X10*3/uL (0.0-0.012); NRBC Pct Auto 0.0 /100WBC (0.0-0.2); Platelet Count 398 X10*3/uL (160-400); Red Blood Count 4.78 X10*6/uL (4.20-5.50); White Blood Count 9.4 X10*3/uL (4.8-10.8)
[2025-03-18 17:48] LABS: Alanine Aminotransferase 25 U/L (0-31); Albumin Level 4.2 g/dL (3.5-5.0); Alkaline Phosphatase 133 U/L (39-117); Anion Gap 12 (12-20); Aspartate Amino Transferase 33 U/L (5-31); Blood Urea Nitrogen 13 mg/dL (9-16); Calcium 9.8 mg/dL (8.4-10.2); Carbon Dioxide 32 mmol/L (22-29); Chloride 104 mmol/L (96-108); Cholesterol 174 mg/dL (<200); Estimated Glomerular Filt Rate > 60; HDL Cholesterol 50 mg/dL (>40); Potassium 4.5 mmol/L (3.3-5.1); Sodium 143 mmol/L (135-145); Total Protein 7.8 g/dL (6.5-8.0); Triglycerides 165 mg/dL (<150)
== END 2025-03-18 16:38 | disposition home or self-care (01) ==
LOC: HO.LAB 16:37
PROVIDERS: PCP Physician Assistant; Visit Provider Physician Assistant
DX: I10 Essential (primary) hypertension (principal); I48.0 Paroxysmal atrial fibrillation; R29.898 Other symptoms and signs involving the musculoskeletal system; Z68.39 Body mass index [BMI] 39.0-39.9, adult
CPT/HCPCS: 36415; 80048; 80061; 80076; 84443; 85025

== ENCOUNTER 2025-03-19 08:51 | Outpatient (AMB) | payer MEDICARE, MEDICAID, SELFPAY ==
--- OUTSIDE RECORDS SUMMARY | 2023-12-09 04:20 | XMS_ITS ---
Author Organization [facility] Address [address] [place] [address] [place] [phone] Care Team Providers Care Harmonic Analyst Name Role Phone Dung (RETIRED) , Vance Primary Care Provider Unavailable Boaz Franco Jr Unavailable [phone] JENNA LOPES Unavailable Unavailable REASON FOR VISIT gastric intestinal metaplasia Encounters Encounter Location Date Provider Diagnosis [facility] [place] Outpatient [address] [place] [id number] 12/09/2023 Boaz Franco Jr Gastric intestinal metaplasia K31.A0 Assessments Encounter Date Diagnosis (ICD Code) Assessment Notes Treatment Notes Treatment Clinical Notes Section Notes 12/09/2023 Gastric intestinal metaplasia (ICD-10 - K31.A0) Plan Of Treatment Next Appt Details Provider Name:Boaz rasheed Jr, 12/16/2025 09:00:00 AM, [address] [place] [address], Suite [facility], [place], [address], Progress Notes * DEONTE HASSANOB:0 1960 (64 yo F)Acc No.[id number]:12/09/2023 EGD/MAC Patient: Alisia EMILY IRENE Provider: Levon Franco MD :1960 A ge:62 Y S ex:Female Date:12/09/2023 Address:[address] [place], [place] [phone] Pcp:Vance Razo (RETIRED) MD Subjective: * Chief [...] 12/09/2023 Generated for Earle rivera/Susu/Sonaliitting on: 0 03/19/2025 10:00 AM EDT
--- NOTE | 2025-03-19 09:05 | MHC.PC.OV ---
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 Required: No Accompanied by: Self / Same As Patient Allergies duloxetine Allergy (Intermediate, Verified 03/19/25 09:06) Rash adhesive tape Allergy (Mild, Verified 03/19/25 09:06) Rash house dust Allergy (Mild, Verified 03/19/25 09:06) runny nose, watery eyes Tobacco use date assessed: 02/20/25 Dental Screening Dental Screen Date: 02/20/25 HPI HPI Comments History of Present Illness Details 64-year-old female with history of idiopathic peripheral neuropathy, obstructive sleep apnea, GERD, hypertension, paroxysmal atrial fibrillation, osteoarthritis, major depressive disorder, and obesity presents to the office today for follow-up. Major depressive disorder/anxiety-bupropion 300 mg XL. Stopped zoloft as she felt this was adversely affecting HR, BP. Made her feel foggy, difficulty concentrating. Had started November 2024. Discontinued 01/15 and BP did go down from 144/91 to 128/81. Still does feel depressed and anxious. Caused some more intrusive thoughts, passive thoughts of suicide. Have resolved since DC. Follows with Dr. Hayes. Given ongoing symptoms, and elevated PHQ-9 score of 12, she was restarted on venlafaxine 37.5 mg and reports improvement in symptoms. Updated PHQ-9 score from this morning is 6. No adverse effects including suicidal thoughts. not recall adverse effects. Next appt 04/18. Paroxysmal atrial fibrillation/hypertension-following with Dr. Irby. S/p cardioversion 2022 and ablation 2023. Anticoagulated with Xarelto. On sotalol 80 mg twice daily Obstructive sleep apnea-compliant with CPAP Idiopathic polyneuropathy-on gabapentin GERD-stable on omeprazole Morbid obesity- BMI 41.5. Walking for exercise 3x per week for 20-30m, but no specific routine. Leg raises and stretches. Legs feel like they are going to give out- primarily on stairs. Some RUELAS, not limiting. No edema. Concerns: As above Health maintenance: Last screening mammogram 02/2024, negative for malignancy, 1 year follow-up advised. Has not yet scheduled Last screening colonoscopy 06/2023 with 10 year follow-up advised. Dr. Franco ROS: See HPI EXAM: Constitutional - Awake and Alert, No apparent distress Eyes - PERRL Cardiovascular - S1S2, RRR, No edema Respiratory - Normal lung expansion, Normal respiratory effort, No respiratory distress, CTA bilaterally Extremities - no calf tenderness bilaterally, no swelling Skin - Warm/Dry Neurological - Alert & oriented x3, moving all extremities Psychological - Appropriate affect PFSH Medical History (Updated 03/19/25 @ 10:13 by CIERRA Cortez) Lower extremity weakness Anxiety DJD (degenerative joint disease) Restless leg syndrome Obstructive sleep apnea on CPAP Obesity Paroxysmal atrial fibrillation History of cardioversion GERD (gastroesophageal reflux disease) Elevated cholesterol HTN (hypertension) Sleep apnea Depression Atrial fibrillation Persistent atrial fibrillation Palpitation Surgical History (Updated 02/20/25 @ 11:34 by CIERRA Cortez) History of esophagogastroduodenoscopy (EGD) H/O cardiac radiofrequency ablation H/O colonoscopy (~07/19/23) History of carpal tunnel surgery Family History Mother CAD (coronary artery disease) Father CAD (coronary artery disease) Social History Housing: Apartment Alcohol intake: current Alcohol intake frequency: holidays/special occasions only Patient Tobacco Use Status: Former Tobacco user (Quite in 2017) e-Cigarette/Vaping Use: Never Used Substance Use Type: Marijuana service: No Current occupational status: disabled Cognitive needs: No Hearing needs: No Vision needs: Yes (Rx glasses) Questionnaire PHQ-9 Over the last 2 weeks, how often have you been bothered by any of the following problems? 1. Little interest or pleasure in doing things: several days 2. Feeling down, depressed, or hopeless: not at all 3. Trouble falling or staying asleep, or sleeping too much: more than half the days 4. Feeling tired or having little energy: several days 5. Poor appetite or overeating: several days 6. Feeling bad about yourself - or that you are a failure or have let yourself or your family down: not at all 7. Trouble concentrating on things, such as reading the newspaper or watching television: several days 8. Moving or speaking so slowly that other people could have noticed. Or the opposite - being so fidgety or restless that you have been moving around a lot more than usual: not at all 9. Thoughts that you would be better off or of hurting yourself in some way: not at all Total score: 6 Depression Screening Interpretation: Negative Depression Screening Done: Yes 67516 - PHQ-9 Billing: Yes Source: Developed by Drs. Jeff Carson, Ioana Sauer, Sidney Barr and colleagues, with an educational ayana from [employer]. Physical exam (Primary Care) Vital Signs: Last Vital Signs Temp 96.8 F 03/19/25 09:09 Pulse 65 03/19/25 09:09 BP 112/64 03/19/25 09:09 Pulse Ox 99 03/19/25 09:09 Oxygen Delivery Method Room Air 03/19/25 09:09 BMI result Body Mass Index 41.4 Tobacco/Smoking Status: Tobacco use Status Tobacco use date assessed 02/20/25 03/19/25 09:10 Patient Tobacco Use Status Former Tobacco user (Quite 03/19/25 09:10 in 2017) e-Cigarette/Vaping Use Never Used 03/19/25 09:10 PHQ-9: PHQ-9 Score PHQ-9: Total score 6 03/19/25 09:26 Depression Screening Interpretation: Negative Coding Level of Care Code Est Pt Level 4 (62460) Complex EM visit Add On G2211 Diagnoses Depression F32.9 Hypertension I10 Atrial fibrillation I48.91 Morbid obesity with BMI of 40.0-44.9, adult E66.01; Z68.41 Insomnia G47.00 Additional Codes PHQ-9 - 82059 - PHQ-9 Billing: Yes ([id number]) Assessment & Plan Assessment & Plan (1) Depression: Code(s): F32.9 - Major depressive disorder, single episode, unspecified Category: Medical Plan: Improved with new PHQ-9 score of 6. She will continue following with Psychiatry and continue on venlafaxine 37.5 mg as well as bupropion 300 mg daily. (2) Hypertension: Code(s): I10 - Essential (primary) hypertension Category: Medical Plan: Controlled. Continue sotalol (3) Atrial fibrillation: Comment: follows w/HCS-taking metoprolol & xarelto Code(s): I48.91 - Unspecified atrial fibrillation Category: Medical Plan: Rate controlled. Continue sotalol, rivaroxaban. Follow up with Cardiology (4) Morbid obesity with BMI of 40.0-44.9, adult: Code(s): E66.01 - Morbid (severe) obesity due to excess calories; Z68.41 - Body mass index [BMI] 40.0-44.9, adult Category: Medical Plan: Continue with weight loss efforts. Healthy diet as well as exercise will also help to improve mood (5) Insomnia: Code(s): G47.00 - Insomnia, unspecified Category: Medical Plan: Not interested in prescription medication at this time. Discussed potential benefits of metformin or valerian root. Also discussed healthy sleep hygiene and is given written education on this. Plan We also discussed labs performed several days ago-no anemia, renal function normal, electrolyte levels reasonably controlled. Slight elevation in liver enzymes, can continue following and working on diet modifications. Cholesterol levels at goal Follow-up in 4 months with labs completed prior to visit Orders: Orders Basic Metabolic Panel 4 Months F32.9 - Major depressive disorder, single episode, unspecified, I10 - Essential (primary) hypertension, I48.0 - Paroxysmal atrial fibrillation Complete Blood Count Auto Diff 4 Months F32.9 - Major depressive disorder, single episode, unspecified, I10 - Essential (primary) hypertension, I48.0 - Paroxysmal atrial fibrillation Patient Instructions: Trial valerian root or melatonin for sleep
[2025-03-19 09:09] VITALS: BP 112/64; PULSE 65; TEMP 36; O2SAT 99; BMI 41.4
--- OUTSIDE RECORDS SUMMARY | 2025-03-19 10:01 | XMS_ITS | Patient Health Record ---
Author Organization [facility] Address [address] [place] [address] Care Team Providers Care Executive Coach Name Role Phone Dung (RETIRED) Vance WOODS Primary Care Provider Unavailable Boaz Franco Jr Unavailable [phone] JENNA LOPES Unavailable Unavailable Allergies Allergen (clinical [...] Problem Status W/U Status Risk Notes Problem 315990602 Colon cancer screening (Z12.11) Active confirmed Problem [id number] nursing home (current) use of anticoagulants (Z79.01) Active confirmed Problem Gastroesophageal reflux disease (238592671) Gastroesophageal reflux disease (K21.9) Active confirmed Problem 213597970 Gastroesophageal reflux disease, unspecified whether esophagitis present (K21.9) Active confirmed Vital Signs Temperature 97.1 degrees Fahrenheit 12/12/2024 Blood pressure diastolic 01 mm Hg 12/12/2024 Height 64 in 12/12/2024 Blood pressure systolic 001 mm Hg 12/12/2024 Weight 236.8 lbs 12/12/2024 BMI 40.64 kg/m2 12/12/2024 Encounters Encounter Location Date Provider Diagnosis [facility] [address] [place] [address] 12/12/2024 Boaz Franco Jr Gastroesophageal reflux disease, unspecified whether esophagitis present K21.9 ; Colon cancer screening Z12.11 and quality intern (current) use of anticoagulants Z79.01 Assessments Encounter [...] is up-to-date on colorectal cancer screening. 12/12/2024 nursing home (current) use of anticoagulants (ICD-10 - Z79.01) [...] COLONOSCOPY 06/08/2023 Next Appt Details Provider Name:Boaz Kwon Capo rasheed Jr, 12/16/2025 09:00:00 AM, [address] [place] [address], [address], [place], [address], Insurance Providers Payer Name Payer Address Payer Phone Subscriber Number Group Number Insured Name Patient Relationship to Insured Coverage Start Date Coverage End Date MEDICARE OF [place] [address] [place] [phone] [id number] EMILY NEWBY Self - patient is the insured MEDICAID OF [facility] [address] [place] [phone] [id number] EMILY NEWBY Self - patient is the [...]
== END 2025-03-19 09:32 | disposition home or self-care (01) ==
LOC: HO.HMCHD 08:52
PROVIDERS: PCP Family Medicine; Visit Provider Physician Assistant
DX: F32.9 Major depressive disorder, single episode, unspecified (principal); I10 Essential (primary) hypertension; I48.91 Unspecified atrial fibrillation; E66.01 Morbid (severe) obesity due to excess calories; Z68.41 Body mass index [BMI] 40.0-44.9, adult; G47.00 Insomnia, unspecified

== ENCOUNTER → 2025-03-19 08:51 | Outpatient (BNVA) | payer MEDICARE, MEDICAID, SELFPAY | PROVIDERS: PCP Family Medicine; Visit Provider Physician Assistant | DX: F32.9 Major depressive disorder, single episode, unspecified (principal); I10 Essential (primary) hypertension; I48.91 Unspecified atrial fibrillation; E66.01 Morbid (severe) obesity due to excess calories; Z68.41 Body mass index [BMI] 40.0-44.9, adult; G47.00 Insomnia, unspecified; Z87.891 Personal history of nicotine dependence; Z13.31 Encounter for screening for depression; Z79.899 Other long term (current) drug therapy | CPT/HCPCS: 96127; 99212 ==

== ENCOUNTER 2025-04-22 15:00 | Outpatient (AMB) | payer MEDICARE, MEDICAID, SELFPAY ==
--- OUTSIDE RECORDS SUMMARY | 2023-12-09 04:20 | XMS_ITS ---
Author Organization [facility] Address [address] [place] [address] [place] [phone] Care Team Providers Care Head Host/Hostess Name Role Phone Dung (RETIRED) , Vance Primary Care Provider Unavailable Boaz Franco Jr Unavailable JENNA LOPES Unavailable Unavailable REASON FOR VISIT gastric intestinal metaplasia Encounters Encounter Location Date Provider Diagnosis [facility] Outpatient [address] [place] [phone] 12/09/2023 Boaz Franco Jr Gastric intestinal metaplasia K31.A0 Assessments Encounter Date Diagnosis (ICD Code) Assessment Notes Treatment Notes Treatment Clinical Notes Section Notes 12/09/2023 Gastric intestinal metaplasia (ICD-10 - K31.A0) Plan Of Treatment Next Appt Details Provider Name:Boaz rasheed Jr, 12/16/2025 09:00:00 AM, [address] [place] [address], Suite [facility], [place], [address], Progress Notes * DEONTE HASSANOB:0 1960 (64 yo F)Acc No.[id number]:12/09/2023 EGD/MAC Patient: Alisia EMILY IRENE Provider: Levon Franco MD :1960 A ge:62 Y S ex:Female Date:12/09/2023 Address:[address] [place], [place] [phone] Pcp:Vance Razo (RETIRED) MD Subjective: * Chief [...] 0 12/09/2023 Generated for Earle rivera/Susu/Sonaliitting on: 1 06:25 PM EDT
--- NOTE | 2025-04-22 15:09 | A.OFFVIS_ITS ---
Vital Signs 04/22/25 15:12 Height 5 ft 4 in Weight 241 lb BMI 41.4 BP 90/60 Blood Pressure Location Lt brachial Position Sitting Pulse 64 Pulse Source Pulse Oximeter Pulse Oximetry (%) 96 Oxygen Delivery Method Room Air Intake Visit Reasons: 6 mnth follow up Intake Note: 6 month follow-up with ekg feeling good Housekeeper Cleaning Cooking Required: No Accompanied by: Self / Same As Patient Allergies duloxetine Allergy (Intermediate, Verified 04/22/25 15:15) Rash adhesive tape Allergy (Mild, Verified 04/22/25 15:15) Rash house dust Allergy (Mild, Verified 04/22/25 15:15) runny nose, watery eyes HPI Comments Details: 63 y/o female patient presents for follow up of SHAI with 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 PMH: AFib, s/p cardiac ablation, chronic anticoagulation therapy on Xarelto, HTN, depression. Regarding SHAI: Patient reports she continues to be followed closely by Cardiology for AFib, HTN. October 2024 echocardiogram showed LV ejection fraction 61 %. Pt reports she is using her ASV device regularly, not always 4 hours. In no though she is using it for longer periods at night, she still may wake up having removed the PAP mask. She states sometimes it feels like she is not getting enough air from the machine. She does endorse some restless leg symptoms, that usually start when she gets into bed. She states the gabapentin usually helps, but may have some breakthrough restless leg symptoms. She typically takes gabapentin an hour to before bed. She has recently advised to change her venlafaxine schedule from the a.m. to q.h.s.. She had started seeing weight management, but is not sure she can continue due to the dietary restrictions in her mental health status. They had ordered an initial workup, which she has not yet completed. 01/22/2025 - 04/21/2025 compliance report Respiratory [facility] Medical Management: [facility] home care ASV compliance report reveals Overall usage 78 % Usage greater than 4 hours 41% Average usage on days used: 4 hours and 27 minutes ASVAuto Min EPAP 5 cmH2O, Max EPAP 13 cmH2O, Min PS 3 cmH2O, Max PS 15 cmH2O Average leaks 18 L/min Maximum leaks 108 0.8 L/min Residual AHI 7.8 per hour * Residual AI: 0.7 per hour * Residual AHI: 7.1 per hour Baseline PSG (03/04/20 at [facility]) had previously revealed AHI 38/hr w/ O2 trudy 87%. Pt developed central sleep apneas w/ initiation of PAP therapy. Dx- Obstructive sleep apnea, severe Dx- Central apnea emergent on PAP therapy Dx- Periodic limb movements Pt responded best to ASV, and recommendation were to start pt on auto-ASV w/ EEP [id number], min PS 3 max, RR 15, w/ heated humidifier. However if pt does not respond well to ASV, recommendation is to consider trialing iVAPS w/ target Va of 6.9 EPAP 10, RR 18, min PS 4, max PS 20. Echocardiogram (September 2020 at [facility]) showed EF 60-65%. Echocardiogram, October 2022 at [facility], showed left ventricular ejection fraction 55- 60%. Echocardiogram, october 2024 at [facility], showed LV ejection fraction 61% Regarding bilateral tinnitus: Interval brain MRI with and without contrast, was unremarkable without evidence of vestibular schwannoma. She continues to have bilateral chronic high pitch tone tinnitus. She has had ENT consult in the past- which was WNL. Though now notes some hearing loss. She has chronic balance difficulties, bilateral feet numbness and tingling or pain. She has chronic sinus issues- but not infections, may have an occasional mild frontal sinus headache, or an occasional sudden head pain. She denies interval falls. She denies interval REM sleep behaviors. Denies cognitive changes. [facility] Medical History (Updated 03/19/25 @ 10:13 by CIERRA Cortez) Lower extremity weakness Anxiety DJD (degenerative joint disease) Restless leg syndrome Obstructive sleep apnea on CPAP Obesity Paroxysmal atrial fibrillation History of cardioversion GERD (gastroesophageal reflux disease) Elevated cholesterol HTN (hypertension) Sleep apnea Depression Atrial fibrillation Persistent atrial fibrillation Palpitation Surgical History (Updated 02/20/25 @ 11:34 by CIERRA Cortez) History of esophagogastroduodenoscopy (EGD) H/O cardiac radiofrequency ablation H/O colonoscopy (~07/19/23) History of carpal tunnel surgery Family History Mother CAD (coronary artery disease) Father CAD (coronary artery disease) Social History (Reviewed 02/20/25 @ 11:19 by SIDNEY Espinal Housing: Apartment Alcohol intake: current Alcohol intake frequency: holidays/special occasions only Patient Tobacco Use Status: Former Tobacco user (Quite in 2017) e-Cigarette/Vaping Use: Never Used Substance Use Type: Marijuana service: No Current occupational status: disabled Cognitive needs: No Hearing needs: No Vision needs: Yes (Rx glasses) Physical Exam Vital Signs: Last Vital Signs Pulse 64 04/22/25 15:12 BP 90/60 04/22/25 15:12 Pulse Ox 96 04/22/25 15:12 Oxygen Delivery Method Room Air 04/22/25 15:12 BMI result Body Mass Index 41.4 Const General: no acute distress Orientation/consciousness: patient oriented x3 Resp Effort & Inspection: normal respiratory effort and able to speak in complete sentences Neuro General: patient oriented x3 Cranial nerves: Yes CN's II-XII intact bilaterally Cognition (Neuro): normal cognition Gait exam (Neuro): Normal gait present Motor exam (neuro): 5/5 motor strength present throughout Psych Appearance: grossly normal Mental Status: mental status grossly normal Speech and movement: Normal speech and movement present and Clear speech present Affect: normal affect Attitude: cooperative Assessment & Plan Assessment & Plan (1) Severe obstructive sleep apnea: Code(s): G47.33 - Obstructive sleep apnea (adult) (pediatric) Category: Medical (2) Treatment-emergent central sleep apnea: Code(s): G47.39 - Other sleep apnea Category: Medical (3) Tinnitus of both ears: Code(s): H93.13 - Tinnitus, bilateral Category: Medical (4) Recurrent falls: Comment: out of bed Code(s): R29.6 - Repeated falls Category: Medical (5) Restless leg syndrome: Code(s): G25.81 - Restless legs syndrome Category: Medical Plan For SHAI with treatment induced central sleep apnea I adjusted her ASV auto settings today, in hopes this further improves her PAP tolerance. * Discontinue ASVauto settings: Min EPAP 5 cmH2O, Max EPAP 13 cmH2O, Min PS 3 cmH2O, Max PS 15 cmH2O. * Start ASVauto settings: Min EPAP 8 cmH2O, Max EPAP 13 cmH2O, Min PS 3 cmH2O, Max PS 15 cmH2O. * Patient advised to notify us if she does not tolerate these new settings. Patient is encouraged to use ASVauto nightly > 4 hours, as patient does have good clinical benefit from use. Clean PAP machine and supplies routinely. Change PAP supplies routinely. Use distilled water in CPAP water reservoir. Pt to contact us or respiratory company with any questions or concerns. For RLS: Continue gabapentin 600 mg daily when to 2 hours before bedtime. Advised to have iron study labs completed, orders already in place by weight management. For bilateral tinnitus in setting of balance difficulties, parasomnias and reports of multiple falls out of bed while on anticoagulation: Reviewed results of interval brain MRI with and without contrast, which were unremarkable and did not show any central etiologies for chronic tinnitus. She denies interval parasomnias, falls. Continue to monitor for now. Will follow-up upon review of above and patient to follow-up in clinic in 6 months or sooner prn. Coding Level of Care Code Est Pt Level 4 (82011) Diagnoses Severe obstructive sleep apnea G47.33 Treatment-emergent central sleep apnea G47.39 Tinnitus of both ears H93.13 Recurrent falls R29.6 Restless leg syndrome G25.81
[2025-04-22 15:12] VITALS: BP 90/60; PULSE 64; O2SAT 96; BMI 41.4
--- OUTSIDE RECORDS SUMMARY | 2025-04-22 18:26 | XMS_ITS | Patient Health Record ---
Author Organization [facility] Address [address] [place] [address] Care Team Providers Care Metal Filer Name Role Phone Dung (RETIRED) Vance WOODS [...] tablet in the morning Orally Once a day; Duration: 30 day(s) Active Magnesium 27 500 (27 Mg) MG 1 tablet Ora lly Once a day; Duration: 30 day(s) Active Gabapentin 300 MG 1 capsule Orally Onc e a day; Duration: 30 day(s) Active Fluticasone Propionate (Inhal) 50 MCG/BLIST 1 puff Inhalation Twice a day Active PriLOSEC 20mg Active Xarelto 20 MG 1 tablet with food O rally Once a day; Duration: 30 day(s) Active One A Day Women [...] Problem Status W/U Status Risk Notes Problem Colon cancer screening (646364419) Colon cancer screening (Z12.11) Active confirmed Problem Long-term current use of anticoagulant (402658486) correction (current) use of anticoagulants (Z79.01) Active confirmed Problem Gastroesophageal reflux disease (305687691) Gastroesophageal reflux disease (K21.9) Active confirmed Problem Gastroesophageal reflux disease (638523838) Gastroesophageal reflux disease, unspecified whether esophagitis present (K21.9) Active confirmed Vital Signs Temperature 97.1 degrees Fahrenheit 12/12/2024 Blood pressure diastolic 01 mm Hg 12/12/2024 Height 64 in 12/12/2024 Blood pressure systolic 001 mm Hg 12/12/2024 Weight 236.8 lbs 12/12/2024 BMI 40.64 kg/m2 12/12/2024 Encounters Encounter Location Date Provider Diagnosis [facility] [address] [place] [address] 12/12/2024 Boaz Franco Jr Gastroesophageal reflux disease, unspecified whether esophagitis present K21.9 ; Colon cancer screening Z12.11 and long term care social worker (current) use of anticoagulants Z79.01 Assessments Encounter [...] is up-to-date on colorectal cancer screening. 12/12/2024 correction (current) use of anticoagulants (ICD-10 - Z79.01) [...] COLONOSCOPY 06/08/2023 Next Appt Details Provider Name:Boaz Doyle rasheed , 12/16/2025 09:00:00 AM, [address] [place] [address], [address], [place], [address], Insurance Providers Payer Name Payer Address Payer Phone Subscriber Number Group Number Insured Name Patient Relationship to Insured Coverage Start Date Coverage End Date MEDICARE OF [place] [address] [place] [address] [id number] EMILY NEWBY Self - patient is the insured MEDICAID OF [facility] [address] [place] [address] [id number] EMILY NEWBY Self - patient is the [...]
== END 2025-04-22 15:56 | disposition home or self-care (01) ==
LOC: HO.HSMS 15:01
PROVIDERS: PCP Family Medicine; Visit Provider Nurse Practitioner Family
DX: G47.33 Obstructive sleep apnea (adult) (pediatric) (principal); G47.39 Other sleep apnea; H93.13 Tinnitus, bilateral; R29.6 Repeated falls; G25.81 Restless legs syndrome
CPT/HCPCS: 99214

== ENCOUNTER → 2025-04-22 15:00 | Outpatient (BNVA) | payer MEDICARE, MEDICAID, SELFPAY | PROVIDERS: PCP Family Medicine; Visit Provider Nurse Practitioner Family | DX: G47.33 Obstructive sleep apnea (adult) (pediatric) (principal); G47.39 Other sleep apnea; Z99.89 Dependence on other enabling machines and devices; H93.13 Tinnitus, bilateral; G25.81 Restless legs syndrome; E66.9 Obesity, unspecified; Z68.41 Body mass index [BMI] 40.0-44.9, adult; Z79.01 Long term (current) use of anticoagulants; Z87.891 Personal history of nicotine dependence; R29.6 Repeated falls | CPT/HCPCS: 99212 ==